=== PATIENT | female | born 1945 | race Caucasian/White ===

== ENCOUNTER 2017-02-07 05:39 | Outpatient (CLI) | payer MEDICARE, BC ==
[~2017-02-07] VITALS: Ht 165.1 cm; Wt 54.4 kg
[~2017-02-07 05:39] MED LIST: ACET-789 PO; ALBU8.5H2 IH; AMIT25TA9 PO; ASP81CT PO; CALC625T; CITA10TA7 PO; CODE-54; DIAZ5TAB49 PO; DOCU100T7 PO; ESCT10T; EST.625T; ESTR1TAB24 PO; FENO145T2 PO; FNT75TD; HYDR-2890 PO; HYDR-3820 PO; HYOS-20 PO; LNS30CCR PO; LUBI24CA6 PO; MIRT30TA6 PO; OMEP20TA7 PO; OMG1KC; PANT40TA3 PO; PROSED DS; STOOL SOFTENER; SUCR1TAB PO; TYLENOL #4; VITAMIN B-12; VITAMIN PACK
[2017-02-07] MEDS ORDERED: DIAZ5TAB3 PO (11:26)
[2017-02-07] MEDS ORDERED: NALO25TA PO (11:26)
[2017-02-07] MEDS ORDERED: FENO145T2 PO (11:26)
[2017-02-07] MEDS ORDERED: ASPI-999 PO (11:26)
[2017-02-07] MEDS ORDERED: DOCU100C37 PO (11:26)
[2017-02-07] MEDS ORDERED: DEXL60CA PO (11:26)
[2017-02-07] MEDS ORDERED: RT-ALBUINH IH (11:26)
== END 2017-02-07 11:29 ==
LOC: PREOP 05:39
PROVIDERS: ATTEND Surgery
DX: Z01.818 Encounter for other preprocedural examination (principal); K21.9 Gastro-esophageal reflux disease without esophagitis; R15.9 Full incontinence of feces; Z86.010 Personal history of colon polyps

== ENCOUNTER 2017-02-13 11:11 | Day surgery (SDC) | payer MEDICARE, BC ==
[~2017-02-13] VITALS: Ht 165.1 cm; Wt 54.4 kg
[~2017-02-13 11:11] MED LIST changes: +ASPI-999 PO; +DEXL60CA PO; +DIAZ5TAB3 PO; +DOCU100C37 PO; +NALO25TA PO; +RT-ALBUINH IH
[2017-02-13] MEDS ORDERED: NS IV 500 ML 500 ML ONE ×2 (11:27→13:41)
[2017-02-13] MEDS ORDERED: NS IV 500 ML 500 ML IV ONE (11:30)
[2017-02-13 11:55] VITALS: BP 138/75
--- NOTE | 2017-02-13 12:06 | Conscious Sedation/ASA ---
Conscious Sedation Pre-Proced Time Reviewed: 12:00 ASA Class: 2 Airway Mallampati Classification: ([place] appropriate class) I. II. III, IV Lungs Heart ASA score ASA 1: a normal healthy patient ASA 2: a patient with a mild systemic disease (mid diabetes, controlled hypertension, obesity ASA 3: a patient with a severe systemic disease that limits activity (angina , COPD, prior Myocardial infarction) ASA 4: a patient with an incapacitating disease that is a constant threat to life (CHF, renal failure) ASA 5: a moribund patient not expected to survive 24 hrs. (ruptured aneurysm) ASA 6: a declared brain patient whose organs are being harvested. For emergent operations, add the letter E after the classification Grade 2 Sedation Plan: Analgesia, Amnesia, Plan communicated to team members, Discussed options with patient/fam, Discussed risks with patient/fam Note The patient is an appropriate candidate to undergo the planned procedure, sedation, and anesthesia. The patient immediately re-assessed prior to indication. TICO GONSALES MD Feb 13, 2017 12:06 pm
--- NOTE | 2017-02-13 12:07 | Progress Note-Pre Operative ---
Pre-Operative Progress Note H&P Reviewed The H&P was reviewed, patient examined and no changes noted. Date Seen by Provider: Feb 13, 2017 Time Seen by Provider: 12:00 Date H&P Reviewed: Feb 13, 2017 Time H&P Reviewed: 12:00 Pre-Operative Diagnosis: GERD, hx colon polyp TICO GONSALES MD Feb 13, 2017 12:07 pm
[2017-02-13] MEDS ORDERED: ACETAMINOPHEN 325 MG TABLET/CAPLET (TYLENOL) PO PRN (12:15)
[2017-02-13] MEDS ORDERED: ONDANSETRON 4 MG/2 ML (SDV) Z0FRAN IV PRN (12:15)
[2017-02-13] MEDS ORDERED: morphine INJ 10 MG/ML 1ML (SYR OR VIAL) IV PRN (12:15)
[2017-02-13] MEDS ORDERED: HYDROcodone/APAP 5 MG/325 MG (LORTAB) TAB PO PRN (12:15)
[2017-02-13] MEDS ORDERED: fentaNYL INJECTION 100 MCG/2 ML AMP ONE ×2 (12:58→13:03)
[2017-02-13] MEDS ORDERED: LIDOCAINE JELLY 2% (XYLOCAINE) 5 ML TUBE ONE (12:58)
[2017-02-13] MEDS ORDERED: MIDAZOLAM 2 MG/2 ML (VERSED) VIAL ONE ×6 (12:58→13:30)
[2017-02-13] MEDS ORDERED: HURRICAINE EXT TUBE (BENZOCAINE) ONE (12:59)
[2017-02-13] MEDS: MIDAZOLAM 2 MG/2 ML (VERSED) VIAL IVP PRN ×6 (13:20→13:35)
[2017-02-13] MEDS: fentaNYL INJECTION 100 MCG/2 ML AMP IVP PRN ×4 (13:21→13:33)
[2017-02-13] MEDS ORDERED: proPOfol 200 MG/20 ML (DIPRIVAN) VIAL IV ONE (13:35)
[2017-02-13 14:35] VITALS: BP 119/64
--- NOTE | 2017-02-13 14:37 | Progress Note-Post Operative ---
Post-Operative Progess Note Surgeon (s)/Generator Rebuilder (s) Surgeon TICO GONSALES MD Generator Rebuilder: none Pre-Operative Diagnosis GERD, hx colon polyp Post-Operative Diagnosis reflux esophagitis(class B), no HH, moderate gastritis. chronic stage 2 ext and int hemorrhoids. Procedure & Operative Findings Date of Procedure 02/13/17 Procedure Performed/Findings EGD with bx. Colooscopy. Anesthesia Type CS Estimated Blood Loss Estimated blood loss (mL): minimal Specimens/Packing Specimens Removed none TICO GONSALES MD Feb 13, 2017 2:37 pm
--- NOTE | 2017-02-13 14:39 | Discharge Inst-Surgical ---
D/C Lap Instructions-DRU Follow Up Appt in 2 weeks Activity as tolerated High Fiber Diet 25g or more per day Avoid Alcohol, Caffeine, Spicy [place] and Acid foods. Drink 64 fluid oz or more of fluids per day. Symptoms to Report: Fever over 101 degree F, Nausea/Vomiting If any problems/questions: Contact your physician or go to Emergency Room TICO GONSALES MD Feb 13, 2017 2:39 pm
[2017-02-13 15:05] VITALS: BP 125/68
[2017-02-13 15:30] VITALS: BP 125/68
[2017-02-13] MEDS ORDERED: LIDOCAINE JELLY 2% (XYLOCAINE) 5 ML TUBE TOP ONE (16:15)
--- NOTE | 2017-02-13 20:52 | OPERATIVE REPORT ---
DATE OF SERVICE: 02/13/2017 ATTENDING PRIMARY CARE PHYSICIAN: Dr. Maryellen Felipe. PREOPERATIVE DIAGNOSIS: Gastroesophageal reflux disease, history of colon polyp, history of proctitis. POSTOPERATIVE DIAGNOSIS: Reflux esophagitis class B, no hiatal hernia, moderate gastritis, normal duodenum, normal ileocolonic anastomosis. No mucosal inflammatory changes. No polyps. PROCEDURE: EGD with biopsy, colonoscopy. SURGEON: Tico Gonsales M.D. ANESTHESIA: Conscious sedation. ESTIMATED BLOOD LOSS: Minimal. FINDINGS: EGD reflux esophagitis class B, no hiatal hernia, moderate severity gastritis. Colonoscopy. Mild chronic stage II external and internal hemorrhoids. The remainder of the rectum and colon were normal. DISPOSITION: The patient tolerated the procedure well. The patient is a 71-year-old female who underwent an ileocecal resection to what sounds to be a unresectable polyp. She has had followup colonoscopies where hyperplastic polyps as well as a tubular adenoma identified. She was then seen 09/2015 and underwent a colonoscopy and was found to have a low level proctitis; however, no polyps identified. She reports for the past 3 months. She has had worsening crampy abdominal pain as well as reflux. DESCRIPTION OF PROCEDURE: The patient was brought to the operating room, laid supine on the table. After adequate IV pain, sedative medications and conscious sedation anesthesia, the mouthpiece was applied. The endoscope was placed in the mouth, visualizing the pharynx and hypopharyngeal region. Vocal cords, epiglottis and vallecula identified to be normal. The endoscope was then intubated into the esophageal opening and esophagus insufflated. The endoscope was then advanced to the first, second and third portions of the esophagus. At the level of the GE junction, a reflux esophagitis class B identified. There were no ulcers or strictures identified in this region. A biopsy was taken with forceps with visualization of good hemostasis. The endoscope was then easily advanced in the stomach. The endoscope retroflexed, visualizing a no hiatal hernia. A moderate severity gastritis was noted, no formal polyps, ulcers or any neoplasms identified. A biopsy was taken of the stomach antrum for H. pylori with visualization of good hemostasis. The endoscope was then advanced to the pylorus and the first and second portions of the duodenum, which appeared normal. No distal obstructions. The endoscope was then slowly withdrawn taking a second look and suctioning residual air with no additional findings. The patient tolerated this portion of the procedure well. We will again recommend medical management with the necessary lifestyle and diet accommodation including small and more frequent meals, avoidance of eating at night as well as head elevation while lying supine. She also needs to avoid spicy, greasy and acidic foods. We also recommend continue on Protonix for now and change in PPI medication if this becomes ineffective. We then proceeded with the colonoscopy portion of the procedure. A digital rectal examination was performed which revealed mild chronic stage II external and internal hemorrhoids, not actively demonstrated inflamed and no bleeding. Normal sphincter tone was felt and there were no palpable masses. The endoscope was then advanced to the valves diffuse the rectum with no polyps or any neoplasms identified. There was also no mucosal inflammatory change to indicate any proctitis. The endoscope was then advanced to the sigmoid colon where no diverticulosis identified. We then proceeded to remainder of the descending, transverse and ascending colon to the cecum. These segments were normal. There were no polyps or any neoplasms identified and a normal anastomosis. The endoscope was slowly withdrawn taking a second look and suctioning of residual air with no additional findings. The patient tolerated the procedure well. We will have her proceed with the necessary lifestyle and diet accommodation including a high fiber diet with at least 25 to 30 grams of fiber to promote soft stools on a daily basis. No polyps were identified on this colonoscopy and she may wait for a longer period of time for her next followup colonoscopy. Job ID: [id number] DocumentID: [id number] Dictated Date: 02/13/2017 14:32:59 Occupational Rehabilitation Aide Date: 02/13/2017 20:51:51 Dictated By: TICO GONSALES MD
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
== END 2017-02-13 15:30 | disposition home or self-care (01) ==
LOC: ENDO 11:11
PROVIDERS: ATTEND Surgery
DX: Z12.11 Encounter for screening for malignant neoplasm of colon (principal); Z86.010 Personal history of colon polyps; K21.0 Gastro-esophageal reflux disease with esophagitis; K29.70 Gastritis, unspecified, without bleeding; K64.1 Second degree hemorrhoids; E78.5 Hyperlipidemia, unspecified; J44.9 Chronic obstructive pulmonary disease, unspecified; K58.9 Irritable bowel syndrome, unspecified; Z79.82 Long term (current) use of aspirin; Z79.899 Other long term (current) drug therapy; Z98.0 Intestinal bypass and anastomosis status
CPT/HCPCS: 43239; G0105

== ENCOUNTER → 2017-02-25 | Outpatient (CLI) | payer MEDICARE, BC | LOC: CARD 13:02 | PROVIDERS: ATTEND Physician Assistant | DX: J44.9 Chronic obstructive pulmonary disease, unspecified (principal); E78.2 Mixed hyperlipidemia; I10 Essential (primary) hypertension; Z72.0 Tobacco use | CPT/HCPCS: 93306 ==

== ENCOUNTER → 2017-02-27 | Outpatient (CLI) | payer MEDICARE, BC ==
[~2017-02-27] MED LIST changes: +CATHETER FLUSH 10 ML SYR IV PRN; +REGADENOSON 0.4 MG/5 ML SYR (LEXISCAN) IV ONE
[2017-02-27 09:41] VITALS: BP 157/98
[2017-02-27 09:46] VITALS: BP 137/75
--- NOTE | 2017-02-27 22:33 | STRESS TEST ---
DATE OF SERVICE: 02/27/2017 LEXISCAN MYOVIEW STRESS TEST REPORT REFERRING PHYSICIAN: Dr. Felipe. Baseline heart rate is 73. Baseline blood pressure 157/98. Baseline EKG is sinus rhythm with no ischemic changes. SUMMARY: The patient was injected with 10.07 mCi of technetium-99 Myoview and the resting images were obtained. Then, the patient received 0.4 mg of Lexiscan followed by 30.1 mCi of technetium-99 Myoview. Throughout the test, there were no EKG changes. The resting and stress images were reviewed and compared in the short axis, horizontal long axis and vertical long axis views. Review of the images showed good radiotracer uptake with no significant ischemia or infarction. SSS is 2. SDS 2. TID value 1.11. On the gated images, the left ventricle appeared to be small in size with normal contractility. Calculated ejection fraction 55%. CONCLUSION: 1. The patient tolerated Lexiscan well. 2. No ischemia or infarction on SPECT images. 3. Normal left ventricular size and contractility, calculated ejection fraction 55%. Job ID: [id number] DocumentID: [id number] Dictated Date: 02/27/2017 16:05:30 Lace Winder Date: 02/27/2017 19:11:15 Dictated By: ADONIS CASTRO MD
== END ==
LOC: CARD 07:37
PROVIDERS: ATTEND Physician Assistant
DX: I10 Essential (primary) hypertension (principal); E78.2 Mixed hyperlipidemia; J44.9 Chronic obstructive pulmonary disease, unspecified; Z72.0 Tobacco use
CPT/HCPCS: 78452; 93017

== ENCOUNTER → 2017-04-01 | Outpatient (CLI) | payer MEDICARE, BC ==
[~2017-04-01] MED LIST changes: -CATHETER FLUSH 10 ML SYR IV PRN; -REGADENOSON 0.4 MG/5 ML SYR (LEXISCAN) IV ONE
--- NOTE | 2017-04-01 16:23 | Diagnostic Imaging Report ---
INDICATION: Fall with neck pain. FINDINGS: There is an X-Stop device between the L4 and L5 spinous process. There is bone graft material seen within the L4-L5 disc space. The alignment of the lumbar spine is normal. Vertebral body heights are well maintained. There is no spondylolysis or spondylolisthesis. No fractures are identified. IMPRESSION: Postsurgical changes in the lumbar spine as described otherwise unremarkable. Dictated by: Dictated on workstation # [id number]
--- NOTE | 2017-04-01 16:30 | Diagnostic Imaging Report ---
INDICATION: Knee pain. Three views were obtained. FINDINGS: The alignment is normal. There is some mild chondrocalcinosis. There is no fracture or dislocation. Soft tissues are unremarkable. IMPRESSION: Mild chondrocalcinosis in the menisci, otherwise unremarkable. Dictated by: Dictated on workstation # [id number]
== END ==
LOC: RAD 15:03
PROVIDERS: ATTEND Nurse Practitioner Family
DX: M54.2 Cervicalgia (principal); M54.5 Low back pain; M11.261 Other chondrocalcinosis, right knee; W19.XXXA Unspecified fall, initial encounter; Z98.890 Other specified postprocedural states
CPT/HCPCS: 72100; 73562

== ENCOUNTER 2017-05-10 22:33 | Emergency (ER) | payer MEDICARE, BC ==
[~2017-05-10] VITALS: Ht 165.1 cm; Wt 54.4 kg
[2017-05-10] MEDS ORDERED: ONDANSETRON 4 MG/2 ML (SDV) Z0FRAN IVP ONE (22:45)
[2017-05-10] MEDS ORDERED: LACTATED RINGERS 1,000 ML IV ONE (22:45)
[2017-05-10 23:22] LABS: BASOPHILS % (AUTO) 0 % (0-10); EOSINOPHILS % (AUTO) 0 % (0-10); HEMATOCRIT 41 % (35-52); HEMOGLOBIN 14.1 G/DL (11.5-16.0); LYMPHOCYTES # (AUTO) 1.4 X 10^3 (1.0-4.0); LYMPHOCYTES % (AUTO) 17 % (12-44); MEAN CORPUSCULAR HEMOGLOBIN 32 PG (25-34); MEAN CORPUSCULAR HGB CONC 34 G/DL (32-36); MEAN CORPUSCULAR VOLUME 92 FL (80-99); MEAN PLATELET VOLUME 10.3 FL (7.4-10.4); MONOCYTES # (AUTO) 0.6 X 10^3 (0.0-1.0); MONOCYTES % (AUTO) 7 % (0-12); NEUTROPHILS # (AUTO) 6.5 X 10^3 (1.8-7.8); NEUTROPHILS % (AUTO) 76 % (42-75); PLATELET COUNT 308 10^3/uL (130-400); RED BLOOD COUNT 4.48 10^6/uL (4.35-5.85); RED CELL DISTRIBUTION WIDTH 12.6 % (10.0-14.5); WHITE BLOOD COUNT 8.6 10^3/uL (4.3-11.0)
[2017-05-10 23:43] LABS: ALANINE AMINOTRANSFERASE 10 U/L (0-55); ALBUMIN 4.2 GM/DL (3.2-4.5); ALKALINE PHOSPHATASE 49 U/L (40-136); AMYLASE 53 U/L (25-125); BILIRUBIN,TOTAL 0.4 MG/DL (0.1-1.0); BUN/CREATININE RATIO 11; CALCIUM 9.3 MG/DL (8.5-10.1); CARBON DIOXIDE 21 MMOL/L (21-32); CHLORIDE 102 MMOL/L (98-107); CREATININE SERUM 0.79 MG/DL (0.60-1.30); GFR ESTIMATED > 60; GLUCOSE 99 MG/DL (70-105); LIPASE 5 U/L (8-78); POTASSIUM 3.7 MMOL/L (3.6-5.0); SODIUM 139 MMOL/L (135-145); TOTAL PROTEIN 7.3 GM/DL (6.4-8.2)
[2017-05-11] MEDS ORDERED: ONDANSETRON 4 MG/2 ML (SDV) Z0FRAN IVP ONE
[2017-05-11] MEDS ORDERED: HYOSCYAMINE 0.125 MG (LEVSIN) TAB PO ONE
[2017-05-11] MEDS ORDERED: SCOPOLAMINE 1.5 MG (TRANSDERM-SCOP) PATCH TD ONE
[2017-05-11] MEDS ORDERED: LACTATED RINGERS 1,000 ML IV ONE (00:01)
[2017-05-11 00:40] LABS: BILIRUBIN,URINE NEGATIVE (NEGATIVE); CLARITY,URINE CLEAR; COLOR,URINE YELLOW; GLUCOSE, URINE (UA) NEGATIVE (NEGATIVE); KETONES,URINE NEGATIVE (NEGATIVE); LEUKOCYTE ESTERASE ,URINE NEGATIVE (NEGATIVE); NITRITE,URINE NEGATIVE (NEGATIVE); PH,URINE 7 (5-9); PROTEIN,URINE NEGATIVE (NEGATIVE); UROBILINOGEN,URINE NORMAL (NORMAL)
[2017-05-11 00:47] LABS: BACTERIA,URINE TRACE /HPF; RBC,URINE RARE /HPF; SQUAMOUS EPITHELIAL CELL,UR 0-2 /HPF; WBC,URINE RARE /HPF
[2017-05-11] MEDS ORDERED: ONDA4TAB8 PO (00:52)
[2017-05-11] MEDS ORDERED: HYOS0.1283 SL (00:52)
--- NOTE | 2017-05-11 00:52 | ED GI ---
General Chief Complaint: Abdominal/GI Problems Stated Complaint: VOMITING/DIZZINESS Nursing Triage Note: patient reports n/v Sepsis Screen: No Definite Risk Source of Information: Patient History of Present Illness Date Seen by Provider: May 10, 2017 Time Seen by Provider: 22:45 Initial Comments PT ARRIVES VIA POV WITH C/O NAUSEA AND VOMITING X 3 DAYS STATES SHE HAS NOT BEEN ABLE TO KEEP ANY THING DOWN FOR 3 DAYS NO DIARRHEA, AND HAS HAD BM'S IN THE LAST 3 DAYS. NO ACTUAL ABDOMINAL PAIN, BUT STOMACH MUSCLES ARE STARTING TO GET SORE FROM VOMITING C/O FEELING DIZZY AND LIGHTHEADED AND SENSITIVE TO LIGHT AND NOISE, BUT NO HEADACHE PT STATES IT STARTED A WEEK AGO WITH COLD SYMPTOMS COUGH AND CONGESTION AND LOTS OF PHLEGM C/O SHORTNESS OF BREATH SYMPTOMS WERE GETTING WORSE AND RX FOR ZITHROMAX CALLED IN THIS AM BY DR. SANDOVAL'S OFFICE. STATES HER NORMAL TEMP IS 96 AND TEMP HAS BEEN UP TO 98 THE LAST FEW DAYS. 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: --PT STATES SHE DOES NOT HAVE ANY HEART PROBLEMS, BUT SEES HIM FOR ROUTINE CHECK UP'S Allergies and Home Medications Allergies Coded Allergies: aspartame (Verified Allergy, Unknown, HIVES, 02/07/17) propoxyphene (Unverified Allergy, Unknown, 02/07/17) Home Medications Albuterol Sulfate 1 Puff Puff, 2 PUFF IH Q4H PRN for SHORTNESS OF BREATH, ( Reported) 1 PUFF = 90 MCG Aspirin 81 Mg Tab.chew, 81 MG PO DAILY, (Reported) Dexlansoprazole 60 Mg , 60 MG PO DAILY, (Reported) Diazepam 5 Mg Tablet, 5 MG PO Q4H, (Reported) Docusate Sodium 100 Mg Capsule, 100 MG PO PRN, (Reported) Estradiol 1 Mg Tablet, 1 MG PO DAILY, (Reported) Fenofibrate Nanocrystallized 145 Mg Tablet, 145 MG PO DAILY, (Reported) Hydrocodone/Acetaminophen 1 Each Tablet, 2 EACH PO Q4H PRN for PAIN, (Reported) Hyoscyamine Sulfate 0.125 Mg Tablet, 0.125 MG PO DAILY PRN for STOMACH UPSET, ( Reported) Hyoscyamine Sulfate 0.125 Mg Tab.subl, 1-2 TAB SL Q4H, #10 Prescribed by: KRISTYN BARBER on 05/11/17 0052 Lubiprostone 24 Mcg Capsule, 24 MCG PO BID PRN for CONSTIPATION-1ST LINE, ( Reported) Naloxegol Oxalate 25 Mg Tablet, 25 MG PO PRN, (Reported) Ondansetron 4 Mg Tab.rapdis, 4-8 MG PO Q4H, #15 Prescribed by: KRISTYN BARBER on 05/11/17 0052 Review of Systems Constitutional: see HPI, dizziness, fever, malaise, weakness EENTM: Nose Congestion Respiratory: See HPI, Cough, Shortness of Air Cardiovascular: No Symptoms Reported Gastrointestinal: See HPI, Abdominal Pain, Denies Constipated, Denies Diarrhea , Nausea, Poor Appetite, Poor Fluid Intake, Vomiting Genitourinary: See HPI (DECREASED OUTPUT) Musculoskeletal: no symptoms reported Skin: no symptoms reported Psychiatric/Neurological: No Symptoms Reported Endocrine: No Symptoms Reported Hematologic/Lymphatic: No Symptoms Reported Past [id number]-[id number] Hx Patient Social History Alcohol Use: Denies Use Recreational Drug Use: No Smoking Status: Current Everyday Smoker (3-4 PPD) Type Used: Cigarettes Recent Foreign Travel: No Contact w/Someone Who Travel: No Recent Infectious Disease Expo: No Recent Hopitalizations: No Physical Abuse: No Sexual Abuse: No Immunizations Up To Date Tetanus Booster (TDap): More than 5yrs Date of Pneumonia Vaccine: Jan 07, 2014 Date of Influenza Vaccine: Jan 16, 2017 Seasonal Allergies Seasonal Allergies: No Surgeries History of Surgeries: Yes (BACK--ANTERIOR AND POSTERIOR APPROACH; COLON "NICKED " DURING SURGERY AND HAD COLON RESECTION; HYST/OVARIES INTACT; SHOULDER SURGERY; URETHRAL DILATION) Surgeries: Abdominal, Appendectomy, Bladder Surgery, Bowel Surgery, Gallbladder , Hysterectomy, Orthopedic, Tubal Ligation Respiratory History of Respiratory Disorde: Yes Respiratory Disorders: COPD Cardiovascular History of Cardiac Disorders: No Neurological History of Neurological Disord: Yes Neurological Disorders: Headaches /Migraines Reproductive System Hx Reproductive Disorders: No Sexually Transmitted Disease: No HIV/AIDS: No 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 Genitourinary History of Genitourinary Disor: No Gastrointestinal History of Gastrointestinal Di: Yes (NICKED BOWEL DURING BACK SX, REQUIRED RESECTION) Gastrointestinal Disorders: Gastroesophageal Reflux, Chronic Constipation Musculoskeletal History of Musculoskeletal Dis: Yes (ARTHRITIS) Musculoskeletal Disorders: Degenerate Disk Disease, Arthritis, Chronic Back Pain Endocrine History of Endocrine Disorders: No HEENT History of HEENT Disorders: No Loss of Vision: Bilateral Hearing Impairment: Denies Cancer History of Cancer: No Psychosocial History of Psychiatric Problem: No Suicide Risk Score: 0 Integumentary History of Skin or Integumenta: No Blood Transfusions History of Blood Disorders: No Adverse Reaction to a Blood Tr: No (N/A) Physical Exam Vital Signs VS - Last 72 Hours, by Label 05/10/17 05/11/17 22:39 01:00 Temp 98.2 Pulse 74 65 Resp 18 18 B/P (MAP) 173/92 (119) 161/89 Pulse Ox 98 98 Capillary Refill : Less Than 3 Seconds General Appearance: no apparent distress, thin, other (LOOKS CHRONICALLY ILL, SOMEWHAT LETHARGIC) HEENT: PERRL/EOMI, other (DRY ORAL MUCOSA) Neck: normal inspection Respiratory: normal breath sounds, no respiratory distress, no accessory muscle use Cardiovascular: regular rate, rhythm, no murmur Gastrointestinal: normal bowel sounds, soft, no organomegaly, no pulsatile mass , No distended, No guarding, No rebound, tenderness (VERY MILD DIFFUSE TENDERNESS--STATES IT IS MUSCLES THAT ARE SORE AND NOT TRUE ABDOMINAL PAIN ), No hernia, No mass Extremities: normal inspection, normal capillary refill Back: no CVA tenderness 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, no motor/sensory deficits, alert, oriented x 3 Skin: warm/dry, pallor Progress/Results/Core Measures Results/Orders Lab Results Laboratory Tests Test 05/10/17 23:14 05/11/17 00:30 Range/Units White Blood Count 8.6 4.3-11.0 10^3/uL Red Blood Count 4.48 4.35-5.85 10^6/uL Hemoglobin 14.1 11.5-16.0 G/DL Hematocrit 41 35-52 % Mean Corpuscular Volume 92 80-99 FL Mean Corpuscular Hemoglobin 32 25-34 PG Mean Corpuscular Hemoglobin Concent 34 32-36 G/DL Red Cell Distribution Width 12.6 10.0-14.5 % Platelet Count 308 130-400 10^3/uL Mean Platelet Volume 10.3 7.4-10.4 FL Neutrophils (%) (Auto) 76 H 42-75 % Lymphocytes (%) (Auto) 17 12-44 % Monocytes (%) (Auto) 7 0-12 % Eosinophils (%) (Auto) 0 0-10 % Basophils (%) (Auto) 0 0-10 % Neutrophils # (Auto) 6.5 1.8-7.8 X 10^3 Lymphocytes # (Auto) 1.4 1.0-4.0 X 10^3 Monocytes # (Auto) 0.6 0.0-1.0 X 10^3 Eosinophils # (Auto) 0.0 0.0-0.3 10^3/uL Basophils # (Auto) 0.0 0.0-0.1 10^3/uL Sodium Level 139 135-145 MMOL/L Potassium Level 3.7 3.6-5.0 MMOL/L Chloride Level 102 98-107 MMOL/L Carbon Dioxide Level 21 21-32 MMOL/L Anion Gap 16 H 5-14 MMOL/L Blood Urea Nitrogen 9 7-18 MG/DL Creatinine 0.79 0.60-1.30 MG/DL Estimat Glomerular Filtration Rate > 60 BUN/Creatinine Ratio 11 Glucose Level 99 70-105 MG/DL Calcium Level 9.3 8.5-10.1 MG/DL Total Bilirubin 0.4 0.1-1.0 MG/DL Aspartate Amino Transf (AST/SGOT) 16 5-34 U/L Alanine Aminotransferase (ALT/SGPT) 10 0-55 U/L Alkaline Phosphatase 49 40-136 U/L Total Protein 7.3 6.4-8.2 GM/DL Albumin 4.2 3.2-4.5 GM/DL Amylase Level 53 25-125 U/L Lipase 5 L 8-78 U/L Urine Color YELLOW Urine Clarity CLEAR Urine pH 7 5-9 Urine Specific [place] 1.010 L 1.016-1.022 Urine Protein NEGATIVE NEGATIVE Urine Glucose (UA) NEGATIVE NEGATIVE Urine Ketones NEGATIVE NEGATIVE Urine Nitrite NEGATIVE NEGATIVE Urine Bilirubin NEGATIVE NEGATIVE Urine Urobilinogen NORMAL NORMAL MG/DL Urine Leukocyte Esterase NEGATIVE NEGATIVE Urine RBC (Auto) 1+ H NEGATIVE Urine RBC RARE /HPF Urine WBC RARE /HPF Urine Squamous Epithelial Cells 0-2 /HPF Urine Crystals NONE /LPF Urine Bacteria TRACE /HPF Urine Casts NONE /LPF Urine Mucus NEGATIVE /LPF Urine Culture Indicated NO My Orders Orders - KRISTYN BARBER DO Saline Lock/Iv-Start (05/10/17 22:45) Amylase (05/10/17 22:45) Cbc With Automated Diff (05/10/17 22:45) Comprehensive Metabolic Panel (05/10/17 22:45) Lipase (05/10/17 22:45) Ua Culture If Indicated (05/10/17 22:45) Ondansetron Injection (Zofran Injectio (05/10/17 22:45) Saline Lock/Iv-Start (05/10/17 22:45) Lactated Ringers (Lr 1000 Ml Iv Solution (05/10/17 22:45) Ondansetron Injection (Zofran Injectio (05/11/17 00:00) Scopolamine Patch (Transderm-Scop Patch) (05/11/17 00:00) Hyoscyamine Sl Tablet (Levsin Sl Tablet) (05/11/17 00:00) Saline Lock/Iv-Start (05/11/17 00:01) Lactated Ringers (Lr 1000 Ml Iv Solution (05/11/17 00:01) Medications Given in ED Current Medications Medications Dose Ordered Sig/Manisha Route Start Time Stop Time Status Last Admin Dose Admin Hyoscyamine Sulfate 0.125 mg ONCE ONCE PO 05/11/17 00:00 05/11/17 00:01 DC 05/11/17 00:14 0.125 MG Lactated Ringer's 1,000 ml @ 0 mls/hr Q0M ONCE IV 05/10/17 22:45 05/10/17 22:47 DC 05/10/17 23:18 0 MLS/HR Lactated Ringer's 1,000 ml @ 0 mls/hr Q0M ONCE IV 05/11/17 00:01 05/11/17 00:02 DC 05/11/17 00:17 0 MLS/HR Ondansetron HCl 8 mg ONCE ONCE IVP 05/10/17 22:45 05/10/17 22:47 DC 05/10/17 23:18 8 MG Ondansetron HCl 8 mg ONCE ONCE IVP 18 00:00 05/11/17 00:01 DC 05/11/17 00:14 8 MG Scopolamine 1.5 mg ONCE ONCE TD 05/11/17 00:00 05/11/17 00:01 DC 05/11/17 00:14 1.5 MG Vital Signs/I&O Vital Sign - Last 12Hours 05/10/17 05/11/17 22:39 01:00 Temp 98.2 Pulse 74 65 Resp 18 18 B/P (MAP) 173/92 (119) 161/89 Pulse Ox 98 98 Blood Pressure Mean: 119 Progress Note : Progress Note SYMPTOMS IMPROVED WITH MEDICATIONS. NO VOMITING DURING ER STAY VOIDED X 2 DURING ER STAY KEEPING DOWN WATER/ICE CHIPS PRIOR TO DISMISSAL PT NO LONGER DIZZY AND ABLE TO WALK BETTER--STATES SHE IS LESS "WOBBLY" Departure Impression Impression: Primary Impression: Gastroenteritis Additional Impression: Volume depletion Disposition: HOME, SELF-CARE Condition: Improved Departure-Patient Inst. Referrals: BETTIE SANDOVAL MD (PCP/Family) Primary Care Physician Patient Instructions: [id number], Viral Gastroenteritis, Adult ( DC), Dehydration, Adult (DC) Add. Discharge Instructions: CLEAR LIQUIDS, SIPS AT A TIME--WATER, BROTH, JELLO, GATORADE TOMORROW IF YOU ARE BETTER, ADD BRATS DIET TO CLEAR LIQUIDS--BANANAS, RICE, APPLESAUCE, TOAST, SALTINES FOLLOW UP WITH YOUR DR ON SATURDAY IF NO BETTER, RETURN TO ER IF WORSE All discharge instructions reviewed with patient and/or family. Voiced understanding. Scripts Hyoscyamine Sulfate (Levsin-Sl) 0.125 Mg Tab.subl 1-2 TAB SL Q4H for Abdominal Pain, #10 TAB Prov: KRISTYN BARBER DO 05/11/17 Ondansetron (Zofran Odt) 4 Mg Tab.rapdis 4-8 MG PO Q4H for Nausea/Vomiting, #15 TAB Prov: KRISTYN BARBER DO 05/11/17 KRISTYN BARBER DO May 11, 2017 00:52
[2017-05-11 01:00] VITALS: BP 161/89
--- OUTSIDE RECORDS SUMMARY | 2017-05-11 03:06 | XMS REPORT | CCD ---
Author Author [facility] Organization [facility] Address [address] [place] [address] Phone Care Team Providers Care Licensed Clinical Psychologist Name Role Phone PP Unavailable CCM Unavailable Summary Purpose Interface Exchange Insurance Providers Payer name Policy type / Coverage type Covered constitution party ID Effective Begin Date Effective End Date WPS Medicare Part B Medicare Part B [id number] Unknown Unknown [facility] Medicare Part B [id number] Unknown Unknown Family history Aunt Diagnosis Age At Onset Diabetes mellitus Type 2 Unknown Father Diagnosis Age At Onset Cancer Unknown Mother Diagnosis Age At Onset Heart Attack Unknown Hyperlipidemia Unknown Hypertension Unknown Dementia Unknown Social History Social History Element Codes Description Effective Dates Marital status Unknown Luis Felipe 09/16/2014 Number of children Unknown 2 09/16/2014 Employment Unknown Retired 09/16/[address]: 06721770 Current every day smoker 2ppd 09/16/2014 Allergies, Adverse Reactions, Alerts Allergies, Adverse Reactions, Alerts data not found Past Medical History Illness Codes Condition Status Onset Date Resolved Date Low back pain ICD-9: 724.2 ICD-10: M54.5 Active 09/13/2016 Unknown Pain in right knee ICD -9: 719.46 ICD-10: M25.561 Active 04/02/2017 Unknown Drug induced constipation ICD-9: 564.09 ICD-10: K59.03 Active 09/13/2016 Unknown Gastro-esophageal reflux disease without esophagitis ICD-9: 530.81 ICD-10: K21.9 Active 10/19/2014 Unknown Chronic pain syndrome ICD-9: 338.4 ICD-10: G89.4 Active 09/15/2014 Unknown Encounter for immunization ICD-9: V03.9 ICD-10: Z23 Active 01/15/2017 Unknown Other emphysema ICD-9 : 492.8 ICD-10: J43.8 Active 01/15/2017 Unknown Encounter for general adult medical examination with abnormal findings ICD-9: V70.0 ICD-10: Z00.01 Active 09/28/2016 Unknown Chronic obstructive pulmonary disease, unspecified ICD-9: 496 ICD-10: J44.9 Active 09/15/2014 Unknown Muscle spasm of back ICD-9: 728.85 ICD-10: M62.830 Active 09/13/2016 Unknown 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 ICD-10: K59.1 Active 03/15/2016 Unknown Tobacco use ICD-9: 305.1 ICD-10: Z72.0 Active 09/13/2015 Unknown Encounter for immunization ICD-9: V03.82 ICD-10: Z23 Active 01/12/2016 Unknown Encounter for immunization ICD-9: V04.81 ICD-10: Z23 Active 12/15/2014 Unknown Epigastric pain ICD-9 : 789.06 ICD-10: R10.13 Active 12/14/2015 Unknown Dysuria ICD-9: 788.1 ICD-10: R30.0 Active 02/28/2015 Unknown VACCIN FOR INFLUENZA ICD-9: V04.81 Active 12/15/2014 Unknown ESOPHAGEAL REFLUX ICD- 9: 530.81 Active 10/19/2014 Unknown Muscle spasm ICD-9: 728.85 Active 10/19/2014 Unknown Hyperlipidemia Unknown Active 09/16/2014 Unknown CHRONIC AIRWAY OBST NEC ICD-9: 496 Active 09/15/2014 Unknown CHRONIC PAIN SYNDROME ICD-9: 338.4 Active 09/15/2014 Unknown HYPERLIPIDEMIA ICD-9: 272.4 Active 09/15/2014 Unknown Problems Condition Codes Effective Dates Condition Status Low back pain ICD-9: 724.2 ICD-10: M54.5 09/13/2016 Active Pain in right knee ICD -9: 719.46 ICD-10: M25.561 04/02/2017 Active Drug induced constipation ICD-9: 564.09 ICD-10: K59.03 09/13/2016 Active Gastro-esophageal reflux disease without esophagitis ICD-9: 530.81 ICD-10: K21.9 10/19/2014 Active Chronic pain syndrome ICD-9: 338.4 ICD-10: G89.4 09/15/2014 Active Encounter for immunization ICD-9: V03.9 ICD-10: Z23 01/15/2017 Active Other emphysema ICD-9 : 492.8 ICD-10: J43.8 01/15/2017 Active Encounter for general adult medical examination with abnormal findings ICD-9: V70.0 ICD-10: Z00.01 09/28/2016 Active Chronic obstructive pulmonary disease, unspecified ICD-9: 496 ICD-10: J44.9 09/15/2014 Active Muscle spasm of back ICD-9: 728.85 ICD-10: M62.830 09/13/2016 Active 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 ICD-10: K59.1 03/15/2016 Active Tobacco use ICD-9: 305.1 ICD-10: Z72.0 09/13/2015 Active Encounter for immunization ICD-9: V03.82 ICD-10: Z23 01/12/2016 Active Encounter for immunization ICD-9: V04.81 ICD-10: Z23 12/15/2014 Active Epigastric pain ICD-9 : 789.06 ICD-10: R10.13 12/14/2015 Active Dysuria ICD-9: 788.1 ICD-10: R30.0 02/28/2015 Active VACCIN FOR INFLUENZA ICD-9: V04.81 12/15/2014 Active ESOPHAGEAL REFLUX ICD- 9: 530.81 10/19/2014 Active Muscle spasm ICD-9: 728.85 10/19/2014 Active Hyperlipidemia Unknown 09/16/2014 Active CHRONIC AIRWAY OBST NEC ICD-9: 496 09/15/2014 Active CHRONIC PAIN SYNDROME ICD-9: 338.4 09/15/2014 Active HYPERLIPIDEMIA ICD-9: 272.4 09/15/2014 Active Medications Medication Codes Instructions Start Date Stop Date Status Fill Instructions baclofen 10 mg tablet RxNorm: 957013 Tablet(s) 1 TABLET(S) PO BID NEEDED 04/29/2017 08/26/2017 Active Patient requests 90 days supply baclofen 10 mg tablet RxNorm: 147457 1 Tablet(s) PO BID as needed 04/25/2017 04/24/2017 Inactive baclofen 10 mg tablet RxNorm: 928424 1 TABLET(S) PO BID NEEDED 04/25/2017 04/28/2017 Inactive Patient requests 90 days supply baclofen 10 mg tablet RxNorm: 878856 1 Tablet(s) PO BID as needed 04/25/2017 04/24/2017 Inactive sodium chloride 0.9 % for nebulization RxNorm: 002819 1 Unit Dose INH TID as needed 04/24/2017 No Stop Date Active 90 day supply sodium chloride 0.9 % for nebulization RxNorm: 365503 1 Unit Dose INH TID as needed 04/24/2017 04/23/2017 Inactive sodium chloride 0.9 % for nebulization RxNorm: 875470 1 Unit Dose INH TID as needed 04/24/2017 04/23/2017 Inactive oxycodone 20 mg tablet RxNorm: 1989866 1 Tablet(s) PO Q4H 04/1105/10/2017 Active oxycodone 20 mg tablet RxNorm: 9435534 1 Tablet(s) PO Q4H 03/1204/10/2017 Inactive Valium 5 mg tablet RxNorm: 499050 1 Tablet(s) PO Q4H BRAND NAME ONLY!! 03/01/2017 04/22/2017 Inactive hydrocodone 10 mg-acetaminophen 325 mg tablet RxNorm: 690693 2 Tablet(s) PO Q4H 02/11/2017 04/22/2017 Inactive Valium 5 mg tablet RxNorm: 101538 1 Tablet(s) PO Q4H BRAND NAME ONLY!! 01/30/2017 02/28/2017 Inactive hydrocodone 10 mg-acetaminophen 325 mg tablet RxNorm: 636946 2 Tablet(s) PO Q4H 01/09/2017 02/07/2017 Inactive hydrocodone 10 mg-acetaminophen 325 mg tablet RxNorm: 761996 2 Tablet(s) PO Q4H 12/12/2016 01/08/2017 Inactive Movantik 25 mg tablet RxNorm: 4636764 1 Tablet(s) PO daily 11/2202/19/2017 Inactive ProAir HFA 90 mcg/actuation aerosol inhaler RxNorm: 534114 USE 2 INHALATIONS ORALLY EVERY 4 HOURS NEEDED 11/12/2016 02/19/2017 Inactive hydrocodone 10 mg-acetaminophen 325 mg tablet RxNorm: 397358 2 Tablet(s) PO Q4H 11/12/2016 12/11/2016 Inactive hydrocodone 10 mg-acetaminophen 325 mg tablet RxNorm: 453460 2 Tablet(s) PO Q4H 10/11/2016 11/08/2016 Inactive Movantik 25 mg tablet RxNorm: 1044098 1 Tablet(s) PO daily 10/0310/02/2016 Inactive Movantik 25 mg tablet RxNorm: 2380202 1 Tablet(s) PO daily 10/0311/21/2016 Inactive Miralax 17 gram/dose oral powder RxNorm: 164854 1 dose PO daily as needed constipation 10/01/2016 No Stop Date Active bethanechol chloride 25 mg tablet RxNorm: 989689 1/2 - 1 Tablet(s) PO TID as needed urinary retention 09/13/20162016 Inactive hydrocodone 10 mg-acetaminophen 325 mg tablet RxNorm: 848846 2 Tablet(s) PO Q4H 09/13/2016 10/09/2016 Inactive hydrocodone 10 mg-acetaminophen 325 mg tablet RxNorm: 875119 2 Tablet(s) PO Q4H 08/10/2016 09/08/2016 Inactive Protonix 40 mg tablet,delayed release RxNorm: 249322 1 TABLET(S) PO DAILY 07/16/2016 10/13/2016 Inactive hydrocodone 10 mg-acetaminophen 325 mg tablet RxNorm: 662089 2 Tablet(s) PO Q4H 06/12/2016 08/09/2016 Inactive estradiol 1 mg tablet RxNorm: 106293 1 Tablet(s) PO daily 201605/22/2017 Active hydrocodone 10 mg-acetaminophen 325 mg tablet RxNorm: 326543 2 Tablet(s) PO Q4H 05/16/2016 06/11/2016 Inactive hydrocodone 10 mg-acetaminophen 325 mg tablet RxNorm: 997441 2 Tablet(s) PO Q4H 04/16/2016 04/15/2016 Inactive hydrocodone 10 mg-acetaminophen 325 mg tablet RxNorm: 447919 2 Tablet(s) PO Q4H 04/16/2016 05/15/2016 Inactive Valium 5 mg tablet RxNorm: 465274 1 Tablet(s) PO Q4H BRAND NAME ONLY!! 04/10/2016 10/06/2016 Inactive hydrocodone 10 mg-acetaminophen 325 mg tablet RxNorm: 632414 2 Tablet(s) PO Q4H 02/13/2016 03/13/2016 Inactive hydrocodone 10 mg-acetaminophen 325 mg tablet RxNorm: 046629 2 Tablet(s) PO Q4H 01/12/2016 02/10/2016 Inactive Valium 5 mg tablet RxNorm: 794698 1 Tablet(s) PO Q4H BRAND NAME ONLY!! 12/29/2015 03/27/2016 Inactive hyoscyamine 0.125 mg sublingual tablet RxNorm: 8511070 Tablet(s) PLACE 1 TABLET UNDER TONGUE NEEDED FOR ABDOMINAL PAIN DIRECTED 201501/24/2016 Inactive Patient requests 90 days supply Amitiza 24 mcg capsule RxNorm: 549160 1 Capsule(s) PO BID 12/2712/21/2016 Inactive Valium 5 mg tablet RxNorm: 107490 1 Tablet(s) PO Q4H 201512/28/2015 Inactive amitriptyline 25 mg tablet RxNorm: 737067 1 Tablet(s) PO daily 12/15/2015 12/17/2016 Inactive hyoscyamine 0.125 mg sublingual tablet RxNorm: 0867754 PLACE 1 TABLET UNDER TONGUE NEEDED FOR ABDOMINAL PAIN DIRECTED 10/03/2015 10/30/2015 Inactive Patient requests 90 days supply hydrocodone 10 mg-acetaminophen 325 mg tablet RxNorm: 603589 2 Tablet(s) PO Q4H 09/20/2015 10/19/2015 Inactive scopolamine 1.5 mg transdermal patch (1 mg over 3 days) RxNorm: 167831 1 TD Q72H as needed motion sick 09/14/20152015 Inactive hydrocodone 10 mg-acetaminophen 325 mg tablet RxNorm: 540097 2 Tablet(s) PO Q4H 09/14/2015 09/19/2015 Inactive ProAir HFA 90 mcg/actuation aerosol inhaler RxNorm: 420230 2 Puff(s) INH Q4H as needed 09/14/2015 03/11/2016 Inactive Valium 5 mg tablet RxNorm: 927912 1 Tablet(s) PO Q4H 201512/07/2015 Inactive MS Contin 60 mg tablet,extended release RxNorm: 060974 1 Tablet(s) PO BID 08/10/2015 09/08/2015 Inactive hydrocodone 10 mg-acetaminophen 325 mg tablet RxNorm: 240378 2 Tablet(s) PO Q4H 08/10/2015 09/08/2015 Inactive MS Contin 30 mg tablet,extended release RxNorm: 559747 1 Tablet(s) PO BID 07/13/2015 08/09/2015 Inactive Carafate 1 gram tablet RxNorm: 170943 1 Tablet(s) PO QID as needed for pain 06/27/2015 07/26/2015 Inactive Protonix 40 mg tablet,delayed release RxNorm: 421809 1 Tablet(s) PO daily 06/27/2015 06/26/2015 Inactive Protonix 40 mg tablet,delayed release RxNorm: 650681 1 TABLET(S) PO DAILY 06/27/2015 10/24/2015 Inactive Patient requests 90 days supply Amitiza 24 mcg capsule RxNorm: 413508 1 Capsule(s) PO BID 06/1212/27/2015 Inactive hydrocodone 10 mg-acetaminophen 325 mg tablet RxNorm: 166191 2 Tablet(s) PO Q4H 06/13/2015 07/12/2015 Inactive citalopram 10 mg tablet RxNorm: 421067 1 Tablet(s) PO daily 07/12/2015 Inactive citalopram 10 mg tablet RxNorm: 036784 1 Tablet(s) PO daily 06/09/2015 Inactive estradiol 1 mg tablet RxNorm: 580821 1 TABLET, 1 TIME PER DAY 02/02/2016 Inactive hydrocodone 10 mg-acetaminophen 325 mg tablet RxNorm: 519248 2 Tablet(s) PO Q4H 04/10/2015 05/09/2015 Inactive Valium 5 mg tablet RxNorm: 108815 1 Tablet(s) PO Q4H 201406/07/2015 Inactive hydrocodone 10 mg-acetaminophen 325 mg tablet RxNorm: 892007 2 Tablet(s) PO Q4H 03/10/2015 03/31/2015 Inactive scopolamine 1.5 mg transdermal patch (1 mg over 3 days) RxNorm: 646240 1 Patch TD Q72H 03/01/2015 03/10/2015 Inactive Valium 5 mg tablet RxNorm: 908497 1 Tablet(s) PO Q4H 201403/09/2015 Inactive hydrocodone 10 mg-acetaminophen 325 mg tablet RxNorm: 847447 2 Tablet(s) PO Q4H 02/07/2015 03/08/2015 Inactive sulfamethoxazole 800 mg-trimethoprim 160 mg tablet RxNorm: 952659 1 Tablet(s) PO BID 01/19/2015 01/25/2015 Inactive hydrocodone 10 mg-acetaminophen 325 mg tablet RxNorm: 115583 2 Tablet(s) PO Q4H 12/22/2014 01/20/2015 Inactive omeprazole 20 mg capsule,delayed release RxNorm: 571208 1 Capsule(s) PO BID 10/20/2014 10/19/2014 Inactive omeprazole 20 mg capsule,delayed release RxNorm: 328715 1 Capsule(s) PO BID 10/20/2014 10/19/2014 Inactive hydrocodone 10 mg-acetaminophen 325 mg tablet RxNorm: 540816 2 Tablet(s) PO Q4H 10/20/2014 11/18/2014 Inactive Valium 5 mg tablet RxNorm: 015805 1 Tablet(s) PO Q4H 201402/14/2015 Inactive omeprazole 20 mg capsule,delayed release RxNorm: 790196 1 Capsule(s) PO BID 10/20/2014 08/09/2015 Inactive MS Contin 15 mg tablet,extended release RxNorm: 053076 1 Tablet(s) PO BID 09/16/2014 10/19/2014 Inactive hydrocodone 10 mg-acetaminophen 325 mg tablet RxNorm: 856101 1 Tablet(s) PO Q6 as needed 09/13/2014 10/19/2014 Inactive fenofibrate nanocrystallized 145 mg tablet RxNorm: 455975 1 Tablet(s) PO daily No Start Date Active ipratropium-albuterol inhalation RxNorm: 435 inhalation No Start Date Active baclofen 10 mg tablet RxNorm: 752460 3 Tablet(s) PO PRN No Start Date Active sodium chloride inhalation RxNorm: inhalation No Start Date 04/23/2017 Inactive Amitiza 24 mcg capsule RxNorm: 119090 1 Capsule(s) PO BID No Start Date 06/12/2015 Inactive hydrocodone 10 mg-acetaminophen 325 mg tablet RxNorm: 609257 1 Tablet(s) PO Q6 as needed No Start Date 09/12/2014 Inactive hyoscyamine 0.125 mg sublingual tablet RxNorm: 2155395 1 Tablet(s) SL PRN as needed abdominal pain No Start Date 2015 Inactive lansoprazole 30 mg capsule,delayed release RxNorm: 153699 1 Capsule(s) PO BID No Start Date 07/13/2015 Inactive ProAir HFA 90 mcg/actuation aerosol inhaler RxNorm: 645298 2 Puff(s) INH Q4H as needed No Start Date 09/13/2015 Inactive estradiol 1 mg tablet RxNorm: 555390 1 Tablet(s) PO daily No Start Date 05/08/2015 Inactive Miralax 17 gram/dose oral powder RxNorm: 202168 1 dose PO daily as needed constipation No Start Date 09/30/2016 Inactive Valium 5 mg tablet RxNorm: 421050 1 Tablet(s) PO Q4H No Start Date 10/19/2014 Inactive amitriptyline 25 mg tablet RxNorm: 359522 1 Tablet(s) PO daily No Start Date 12/14/2015 Inactive Medication Administered No Medication Administered data Immunizations Vaccine Codes Date Status Influenza CVX: 141 01/15/2017 completed Pneumococcal (Adult) CVX: 33 01/13/2016 completed Influenza CVX: 141 12/15/2015 completed Influenza CVX: 141 12/16/2014 completed Assessments Condition Codes Effective Dates Pain in right knee ICD-10: M25.561 ICD-9: 719.46 04/02/2017 Low back pain ICD-10: M54.5 ICD-9: 724.2 04/02/2017 Drug induced constipation ICD-10: K59.03 ICD-9: 564.09 01/30/2017 Gastro-esophageal reflux disease without esophagitis ICD-10 : K21.9 ICD-9: 530.81 01/30/2017 Other emphysema ICD-10: J43.8 ICD-9: 492.8 01/15/2017 Chronic pain syndrome ICD-10: G89.4 ICD-9: 338.4 01/15/2017 Encounter for immunization ICD-10: Z23 ICD-9: V03.9 01/15/2017 Encounter for general adult medical examination with abnormal findings ICD-10: Z00.01 ICD-9: V70.0 09/28/2016 Muscle spasm of back ICD-10: M62.830 ICD-9: 728.85 09/13/2016 Chronic obstructive pulmonary disease, unspecified ICD-10: J44.9 ICD-9: 496 06/12/2016 Functional diarrhea ICD-10: K59.1 ICD-9: 564.5 06/12/2016 Tobacco use ICD-10: Z72.0 ICD-9: 305.1 06/12/2016 Encounter for immunization ICD-10: Z23 ICD-9: V03.82 01/13/2016 Epigastric pain ICD-10: R10.13 ICD-9: 789.06 12/15/2015 Encounter for immunization ICD-10: Z23 ICD-9: V04.81 12/15/2015 Dysuria ICD-10: R30.0 ICD-9: 788.1 03/01/2015 VACCIN FOR INFLUENZA ICD-9: V04.81 2014 CHRONIC PAIN SYNDROME ICD-9: 338.4 2014 Muscle spasm ICD-9: 728.85 10/20/2014 CHRONIC AIRWAY OBST NEC ICD-9: 496 2014 ESOPHAGEAL REFLUX ICD-9: 530.81 2014 HYPERLIPIDEMIA ICD-9: 272.4 09/16/2014 Reason For Visit Reason For Visit Effective Dates Notes knee pain 04/02/2017 on the right constipation 01/30/2017 back pain 01/15/2017 Annual Medicare Wellness Exam 09/28/2016 back pain 09/13/2016 back pain 06/12/2016 back pain 03/15/2016 vaccination against pneumonia 01/13/2016 back pain 12/15/2015 abdominal pain 09/14/2015 abdominal pain 08/10/2015 abdominal pain 07/13/2015 abdominal pain 06/27/2015 back pain 04/20/2015 dysuria 01/19/2015 vaccination against influenza 12/16/2014 back pain 10/20/2014 back pain 09/16/2014 Results Observation Observation Code Item Item Code Result Date Cbc With Differential Ord2 WBC 5.55 K/ul 12/24/2016 Cbc With Differential Ord2 RBC 4.12 M/ul 12/24/2016 Cbc With Differential Ord2 HGB 13.7 g/dl 12/24/2016 Cbc With Differential Ord2 HCT 40.3 % 12/24/2016 Cbc With Differential Ord2 Neut% 37.9 % 12/24/2016 Cbc With Differential Ord2 MCV 97.8 fl 12/24/2016 Cbc With Differential Ord2 Lymph% 51.4 % 12/24/2016 Cbc With Differential Ord2 [place]% 7.9 % 12/24/2016 Cbc With Differential Ord2 MCH 33.3 pg 12/24/2016 Cbc With Differential Ord2 MCHC 34.0 pg 12/24/2016 Cbc With Differential Ord2 Eos% 2.3 % 12/24/2016 Cbc With Differential Ord2 PLT 315 K/ul 12/24/2016 Cbc With Differential Ord2 Baso% 0.5 % 12/24/2016 Cbc With Differential Ord2 Neut ABS# 2.10 K/ul 12/24/2016 Cbc With Differential Ord2 RDW 12.5 % 12/24/2016 Cbc With Differential Ord2 Lymph ABS# 2.85 K/ul 12/24/2016 Cbc With Differential Ord2 [place] ABS# 0.4 K/ul 12/24/2016 Cbc With Differential Ord2 Eos ABS# 0.1 K/ul 12/24/2016 Cbc With Differential Ord2 Baso ABS# 0.0 K/ul 12/24/2016 Tsh Ord6 hTSH II 4.10 uIU/mL 12/24/2016 Comp Metabolic Rgj207 NA 138 mEq/L 12/24/2016 Comp Metabolic Jvl369 K 4.9 mEq/L 12/24/2016 Comp Metabolic Gpr182 CL 101 mEq/L 12/24/[address] CO2 30.0 mEq/L 12/24/2016 Comp Metabolic Tzp927 ANION GAP 12 12/24/2016 Comp Metabolic Dhi998 GLUCOSE 89 mg/dL 12/24/2016 Comp Metabolic Dey749 Creat 0.8 mg/dL 12/24/2016 Comp Metabolic Knz532 eGFR 75 ml/min/1.73m2 12/24/2016 Comp Metabolic Zet842 BUN 13 mg/dL 12/24/2016 Comp Metabolic Waw640 B/C Ratio 16.3 Ratio 12/24/2016 Comp Metabolic Aym292 CALCIUM 10.3 mg/dL 12/24/2016 Comp Metabolic Pih695 ALK PHOS 37 U/L 12/24/2016 Comp Metabolic Qis517 AST(SGOT) 17 U/L 12/24/2016 Comp Metabolic Qga604 ALT(SGPT) 9 U/L 12/24/2016 Comp Metabolic Jcg120 BILI T 0.3 mg/dL 12/24/2016 Comp Metabolic Ydv065 ALBUMIN 4.4 g/dL 12/24/2016 Comp Metabolic Bxz329 TPRO 6.9 g/dL 12/24/2016 Comp Metabolic Tud043 GLOB 2.5 g/dL 12/24/2016 Comp Metabolic Pmt017 A/G Ratio 1.7 Ratio 12/24/2016 Comp Metabolic Cax305 Osmo 275 mOsmo 12/24/2016 Lipid Ord30 CHOL 219 mg/dL 12/24/2016 Lipid Ord30 HDL 92.0 mg/dl 12/24/2016 Lipid Ord30 TRIG 201 mg/dL 12/24/2016 Lipid Ord30 LDL 87 mg/dL 12/24/2016 Lipid Ord30 C/HDL 2.4 Ratio 12/24/2016 Lipid Ord30 CHOL 206 mg/dL 01/03/2016 Lipid Ord30 HDL 100.0 mg/dl 01/03/2016 Lipid Ord30 TRIG 99 mg/dL 01/03/2016 Lipid Ord30 LDL 86 mg/dL 01/03/2016 Lipid Ord30 C/HDL 2.1 Ratio 01/03/2016 Comp Metabolic Mmy177 NA 136 mEq/L 09/28/2015 Comp Metabolic Ocz437 K 4.3 mEq/L 09/28/2015 Comp Metabolic Wqm382 CL 105 mEq/L 09/28/2015 Comp Metabolic Xbh893 CO2 20.0 mEq/L 09/28/2015 Comp Metabolic Snz482 ANION GAP 15 09/28/2015 Comp Metabolic Qmw560 GLUCOSE 88 mg/dL 09/28/2015 Comp Metabolic Cnd908 Creat 0.9 mg/dL 09/28/2015 Comp Metabolic Vlh351 eGFR 67 ml/min/1.73m2 09/28/2015 Comp Metabolic Une354 BUN 10 mg/dL 09/28/2015 Comp Metabolic Mvx843 B/C Ratio 11.4 Ratio 09/28/2015 Comp Metabolic Nmd887 CALCIUM 9.6 mg/dL 09/28/2015 Comp Metabolic Gly205 ALK PHOS 34 U/L 09/28/2015 Comp Metabolic Wei375 AST(SGOT) 17 U/L 09/28/2015 Comp Metabolic Kbw400 ALT(SGPT) 9 U/L 09/28/2015 Comp Metabolic Sir132 BILI T 0.4 mg/dL 09/28/2015 Comp Metabolic Pnr138 ALBUMIN 4.7 g/dL 09/28/2015 Comp Metabolic Cco588 TPRO 7.4 g/dL 09/28/2015 Comp Metabolic Bhx088 GLOB 2.7 g/dL 09/28/2015 Comp Metabolic Mwv359 A/G Ratio 1.7 Ratio 09/28/2015 Comp Metabolic Zpo041 Osmo 270 mOsmo 09/28/2015 Lipid Ord30 CHOL 214 mg/dL 09/28/2015 Lipid Ord30 HDL 98.0 mg/dl 09/28/2015 Lipid Ord30 TRIG 133 mg/dL 09/28/2015 Lipid Ord30 LDL 89 mg/dL 09/28/2015 Lipid Ord30 C/HDL 2.2 Ratio 09/28/2015 Culture Urine [id number] URINE CULTURE SEE NOTES 01/24/2015 Culture Urine [id number] Continued Results 01/24/2015 Urine Culture Ucult Complete >100,000 col/ml aerobic growth sent to ref lab 01/20/2015 Vitamin D 25 Oh Akp0820 VITAMIN D, 25 HYDROXY 77.29 ng/mL Cbc With Differential Ord2 WBC 4.3 K/uL 09/30/2014 Cbc With Differential Ord2 LYM 2.0 K/uL 09/30/2014 Cbc With Differential Ord2 LYM% 47.4 % 09/30/2014 Cbc With Differential Ord2 NEUT/GRAN 2.0 K/uL 09/30/2014 Cbc With Differential Ord2 NEUT/GRAN % 45.8 % 09/30/2014 Cbc With Differential Ord2 MID 0.3 K/uL 09/30/2014 Cbc With Differential Ord2 MID% 6.8 % 09/30/2014 Cbc With Differential Ord2 RBC 4.39 M/uL 09/30/2014 Cbc With Differential Ord2 HGB 14.0 g/dL 09/30/2014 Cbc With Differential Ord2 HCT 41.7 % 09/30/2014 Cbc With Differential Ord2 MCV 95 fL 09/30/2014 Cbc With Differential Ord2 MCH 32 pg 09/30/2014 Cbc With Differential Ord2 MCHC 34 g/dL 09/30/2014 Cbc With Differential Ord2 PLT 257 K/uL 09/30/2014 Cbc With Differential Ord2 RDW 13.7 % 09/30/2014 Tsh Ord6 hTSH II 1.42 uIU/mL 09/30/2014 Comp Metabolic Vmq517 NA 136 mEq/L 09/30/2014 Comp Metabolic Ugo432 K 4.0 mEq/L 09/30/2014 Comp Metabolic Odk853 CL 104 mEq/L 09/30/2014 Comp Metabolic Out622 CO2 25.0 mEq/L 09/30/2014 Comp Metabolic Fff352 ANION GAP 11 09/30/2014 Comp Metabolic Ynn442 GLUCOSE 84 mg/dL 09/30/2014 Comp Metabolic Jpc714 Creat 0.9 mg/dL 09/30/2014 Comp Metabolic Heu829 eGFR 67 ml/min/1.73m2 09/30/2014 Comp Metabolic Xow947 BUN 9 mg/dL 09/30/2014 Comp Metabolic Obk741 B/C Ratio 10.2 Ratio 09/30/2014 Comp Metabolic Nfr324 CALCIUM 9.5 mg/dL 09/30/2014 Comp Metabolic Avy645 ALK PHOS 34 U/L 09/30/2014 Comp Metabolic Uxl078 AST(SGOT) 19 U/L 09/30/2014 Comp Metabolic Ygj483 ALT(SGPT) 11 U/L 09/30/2014 Comp Metabolic Tyh112 BILI T 0.4 mg/dL 09/30/2014 Comp Metabolic Wob898 ALBUMIN 4.2 g/dL 09/30/2014 Comp Metabolic Zki454 TPRO 6.6 g/dL 09/30/2014 Comp Metabolic Frz856 GLOB 2.4 g/dL 09/30/2014 Comp Metabolic Fpv057 A/G Ratio 1.8 Ratio 09/30/2014 Comp Metabolic Rrz906 Osmo 270 mOsmo 09/30/2014 Lipid Ord30 CHOL 199 mg/dL 09/30/2014 Lipid Ord30 HDL 95.0 mg/dl 09/30/2014 Lipid Ord30 TRIG 91 mg/dL 09/30/2014 Lipid Ord30 LDL 86 mg/dL 09/30/2014 Lipid Ord30 C/HDL 2.1 Ratio 09/30/2014 Review of Systems System Result Effective Dates Constitutional No recent illness 2017 Constitutional No chills 04/02/2017 Constitutional No fever 04/02/2017 Eyes No eye erythema 04/02/2017 Ears/Nose/Throat/Neck No nasal discharge 04/02/2017 Cardiovascular No chest pain/pressure 11/2017 Cardiovascular No dyspnea 04/02/2017 Respiratory No cough 04/02/2017 Respiratory No dyspnea 04/02/2017 Musculoskeletal joint complaint 2017 Neurologic No alteration of consciousness 04/02/2017 Neurologic No mental status change 2017 Musculoskeletal back pain 04/02/2017 Constitutional recent illness 01/30/2017 Constitutional No chills 01/30/2017 Constitutional No diaphoresis 01/30/2017 Constitutional No fever 01/30/2017 Eyes No eye erythema 01/30/2017 Ears/Nose/Throat/Neck No nasal discharge 01/30/2017 Cardiovascular No chest pain/pressure 10/2016 Cardiovascular No dyspnea 01/30/2017 Respiratory No cough 01/30/2017 Respiratory No chest congestion 2016 Gastrointestinal abdominal pain 2016 Gastrointestinal constipation 01/30/2017 Gastrointestinal No diarrhea 01/30/2017 Gastrointestinal No vomiting 01/30/2017 Gastrointestinal No nausea 01/30/2017 Gastrointestinal No melena 01/30/2017 Gastrointestinal No hematochezia 2016 Musculoskeletal back pain 01/30/2017 Neurologic No alteration of consciousness 01/30/2017 Neurologic No mental status change 2016 Constitutional No recent illness 2016 Constitutional No chills 01/15/2017 Constitutional fatigue 01/15/2017 Constitutional No fever 01/15/2017 Constitutional No insomnia 01/15/2017 Constitutional malaise 01/15/2017 Eyes No blindness 01/15/2017 Eyes No vision change 01/15/2017 Ears/Nose/Throat/Neck No dental pain Ears/Nose/Throat/Neck No dizziness 2016 Ears/Nose/Throat/Neck No dysphagia 2016 Ears/Nose/Throat/Neck No headache 2016 Ears/Nose/Throat/Neck No hearing loss Ears/Nose/Throat/Neck No nasal allergies 01/15/2017 Ears/Nose/Throat/Neck No sore throat Ears/Nose/Throat/Neck No postnasal drip 01/15/2017 Ears/Nose/Throat/Neck No sinus congestion 01/15/2017 Cardiovascular No chest pain/pressure Cardiovascular No dyspnea 01/15/2017 Cardiovascular No edema 01/15/2017 Cardiovascular exercise intolerance 01/15 Cardiovascular fatigue 01/15/2017 Cardiovascular No near-syncope/dizziness 01/15/2017 Respiratory No chest tightness 2016 Respiratory No cough 01/15/2017 Respiratory dyspnea 01/15/2017 Respiratory No pedal edema 01/15/2017 Gastrointestinal abdominal pain 2016 Gastrointestinal constipation 01/15/2017 Gastrointestinal diarrhea 01/15/2017 Gastrointestinal gastroesophageal reflux 01/15/2017 Gastrointestinal No nausea 01/15/2017 Gastrointestinal No vomiting 01/15/2017 Genitourinary/Nephrology No dysuria 01/15 Genitourinary/Nephrology No nocturia Genitourinary/Nephrology No urinary incontinence 01/15/2017 Musculoskeletal stiffness 01/15/2017 Musculoskeletal No swelling 01/15/2017 Musculoskeletal back pain 01/15/2017 Musculoskeletal muscle weakness 2016 Musculoskeletal myalgias 01/15/2017 Dermatologic No rash 01/15/2017 Dermatologic No sores 01/15/2017 Dermatologic No scar 01/15/2017 Neurologic No dizziness 01/15/2017 Neurologic No headache 01/15/2017 Neurologic No neck pain 01/15/2017 Neurologic No syncope 01/15/2017 Psychiatric No anxiety 01/15/2017 Psychiatric No depression 01/15/2017 Respiratory dyspnea on exertion 2016 Constitutional No recent illness 2016 Constitutional No diaphoresis 09/28/2016 Constitutional No chills 09/28/2016 Constitutional No fever 09/28/2016 Eyes No eye erythema 09/28/2016 Ears/Nose/Throat/Neck No nasal allergies 09/28/2016 Ears/Nose/Throat/Neck No nasal discharge 09/28/2016 Cardiovascular No chest pain/pressure 09/2016 Cardiovascular No dyspnea 09/28/2016 Respiratory No cough 09/28/2016 Respiratory No dyspnea 09/28/2016 Dermatologic No rash 09/28/2016 Neurologic No alteration of consciousness 09/28/2016 Neurologic No mental status change 2016 Constitutional No recent illness 2016 Constitutional No chills 09/13/2016 Constitutional fatigue 09/13/2016 Constitutional No fever 09/13/2016 Constitutional No insomnia 09/13/2016 Constitutional malaise 09/13/2016 Eyes No blindness 09/13/2016 Eyes No vision change 09/13/2016 Ears/Nose/Throat/Neck No dental pain Ears/Nose/Throat/Neck No dizziness 2016 Ears/Nose/Throat/Neck No dysphagia 2016 Ears/Nose/Throat/Neck No headache 2016 Ears/Nose/Throat/Neck No hearing loss Ears/Nose/Throat/Neck No nasal allergies 09/13/2016 Ears/Nose/Throat/Neck No sore throat Ears/Nose/Throat/Neck No postnasal drip 09/13/2016 Ears/Nose/Throat/Neck No sinus congestion 09/13/2016 Cardiovascular No chest pain/pressure Cardiovascular No dyspnea 09/13/2016 Cardiovascular No edema 09/13/2016 Cardiovascular exercise intolerance 09/13 Cardiovascular fatigue 09/13/2016 Cardiovascular No near-syncope/dizziness 09/13/2016 Respiratory No chest tightness 2016 Respiratory No cough 09/13/2016 Respiratory dyspnea 09/13/2016 Respiratory No pedal edema 09/13/2016 Gastrointestinal abdominal pain 2016 Gastrointestinal constipation 09/13/2016 Gastrointestinal diarrhea 09/13/2016 Gastrointestinal gastroesophageal reflux 09/13/2016 Gastrointestinal No nausea 09/13/2016 Gastrointestinal No vomiting 09/13/2016 Genitourinary/Nephrology No dysuria 09/13 Genitourinary/Nephrology No nocturia Genitourinary/Nephrology No urinary incontinence 09/13/2016 Musculoskeletal stiffness 09/13/2016 Musculoskeletal No swelling 09/13/2016 Musculoskeletal back pain 09/13/2016 Musculoskeletal muscle weakness 2016 Musculoskeletal myalgias 09/13/2016 Dermatologic No rash 09/13/2016 Dermatologic No sores 09/13/2016 Dermatologic No scar 09/13/2016 Neurologic No dizziness 09/13/2016 Neurologic No headache 09/13/2016 Neurologic No neck pain 09/13/2016 Neurologic No syncope 09/13/2016 Psychiatric No anxiety 09/13/2016 Psychiatric No depression 09/13/2016 Constitutional No recent illness 2016 Constitutional No chills 06/12/2016 Constitutional fatigue 06/12/2016 Constitutional No fever 06/12/2016 Constitutional No insomnia 06/12/2016 Constitutional malaise 06/12/2016 Eyes No blindness 06/12/2016 Eyes No vision change 06/12/2016 Ears/Nose/Throat/Neck No dental pain Ears/Nose/Throat/Neck No dizziness 2016 Ears/Nose/Throat/Neck No dysphagia 2016 Ears/Nose/Throat/Neck No headache 2016 Ears/Nose/Throat/Neck No hearing loss Ears/Nose/Throat/Neck No nasal allergies 06/12/2016 Ears/Nose/Throat/Neck No sore throat Ears/Nose/Throat/Neck No postnasal drip 06/12/2016 Ears/Nose/Throat/Neck No sinus congestion 06/12/2016 Cardiovascular No chest pain/pressure Cardiovascular No dyspnea 06/12/2016 Cardiovascular No edema 06/12/2016 Cardiovascular exercise intolerance 06/12 Cardiovascular fatigue 06/12/2016 Cardiovascular No near-syncope/dizziness 06/12/2016 Respiratory No chest tightness 2016 Respiratory No cough 06/12/2016 Respiratory dyspnea 06/12/2016 Respiratory No pedal edema 06/12/2016 Gastrointestinal abdominal pain 2016 Gastrointestinal No constipation 2016 Gastrointestinal diarrhea 06/12/2016 Gastrointestinal gastroesophageal reflux 06/12/2016 Genitourinary/Nephrology No dysuria 06/12 Genitourinary/Nephrology No nocturia Genitourinary/Nephrology No urinary incontinence 06/12/2016 Musculoskeletal stiffness 06/12/2016 Musculoskeletal No swelling 06/12/2016 Musculoskeletal back pain 06/12/2016 Musculoskeletal muscle weakness 2016 Musculoskeletal myalgias 06/12/2016 Dermatologic No rash 06/12/2016 Dermatologic No sores 06/12/2016 Dermatologic No scar 06/12/2016 Neurologic No dizziness 06/12/2016 Neurologic No headache 06/12/2016 Neurologic No neck pain 06/12/2016 Neurologic No syncope 06/12/2016 Psychiatric No anxiety 06/12/2016 Psychiatric No depression 06/12/2016 Constitutional No recent illness 2015 Constitutional No chills 03/15/2016 Constitutional fatigue 03/15/2016 Constitutional No fever 03/15/2016 Constitutional No insomnia 03/15/2016 Constitutional malaise 03/15/2016 Eyes No blindness 03/15/2016 Eyes No vision change 03/15/2016 Ears/Nose/Throat/Neck No dental pain Ears/Nose/Throat/Neck No dizziness 2015 Ears/Nose/Throat/Neck No dysphagia 2015 Ears/Nose/Throat/Neck No headache 2015 Ears/Nose/Throat/Neck No hearing loss Ears/Nose/Throat/Neck No nasal allergies 03/15/2016 Ears/Nose/Throat/Neck No sore throat Ears/Nose/Throat/Neck No postnasal drip 03/15/2016 Ears/Nose/Throat/Neck No sinus congestion 03/15/2016 Cardiovascular No chest pain/pressure Cardiovascular No dyspnea 03/15/2016 Cardiovascular No edema 03/15/2016 Cardiovascular exercise intolerance 03/15 Cardiovascular fatigue 03/15/2016 Cardiovascular No near-syncope/dizziness 03/15/2016 Respiratory No chest tightness 2015 Respiratory No cough 03/15/2016 Respiratory dyspnea 03/15/2016 Respiratory No pedal edema 03/15/2016 Gastrointestinal abdominal pain 2015 Gastrointestinal No constipation 2015 Gastrointestinal diarrhea 03/15/2016 Gastrointestinal gastroesophageal reflux 03/15/2016 Genitourinary/Nephrology No dysuria 03/15 Genitourinary/Nephrology No nocturia Genitourinary/Nephrology No urinary incontinence 03/15/2016 Musculoskeletal stiffness 03/15/2016 Musculoskeletal No swelling 03/15/2016 Musculoskeletal back pain 03/15/2016 Musculoskeletal muscle weakness 2015 Musculoskeletal myalgias 03/15/2016 Dermatologic No rash 03/15/2016 Dermatologic No sores 03/15/2016 Dermatologic No scar 03/15/2016 Neurologic No dizziness 03/15/2016 Neurologic No headache 03/15/2016 Neurologic No neck pain 03/15/2016 Neurologic No syncope 03/15/2016 Psychiatric No anxiety 03/15/2016 Psychiatric No depression 03/15/2016 Constitutional No recent illness 2015 Constitutional No chills 12/15/2015 Constitutional fatigue 12/15/2015 Constitutional No fever 12/15/2015 Constitutional No insomnia 12/15/2015 Constitutional malaise 12/15/2015 Eyes No blindness 12/15/2015 Eyes No vision change 12/15/2015 Ears/Nose/Throat/Neck No dental pain Ears/Nose/Throat/Neck No dizziness 2015 Ears/Nose/Throat/Neck No dysphagia 2015 Ears/Nose/Throat/Neck No headache 2015 Ears/Nose/Throat/Neck No hearing loss Ears/Nose/Throat/Neck No nasal allergies 12/15/2015 Ears/Nose/Throat/Neck No sore throat Ears/Nose/Throat/Neck No postnasal drip 12/15/2015 Ears/Nose/Throat/Neck No sinus congestion 12/15/2015 Cardiovascular No chest pain/pressure Cardiovascular No dyspnea 12/15/2015 Cardiovascular No edema 12/15/2015 Cardiovascular exercise intolerance 12/14 Cardiovascular fatigue 12/15/2015 Cardiovascular No near-syncope/dizziness 12/15/2015 Respiratory No chest tightness 2015 Respiratory No cough 12/15/2015 Respiratory dyspnea 12/15/2015 Respiratory No pedal edema 12/15/2015 Gastrointestinal abdominal pain 2015 Gastrointestinal No constipation 2015 Gastrointestinal diarrhea 12/15/2015 Gastrointestinal gastroesophageal reflux 12/15/2015 Genitourinary/Nephrology No dysuria 12/14 Genitourinary/Nephrology No nocturia Genitourinary/Nephrology No urinary incontinence 12/15/2015 Musculoskeletal stiffness 12/15/2015 Musculoskeletal No swelling 12/15/2015 Musculoskeletal back pain 12/15/2015 Musculoskeletal muscle weakness 2015 Musculoskeletal myalgias 12/15/2015 Dermatologic No rash 12/15/2015 Dermatologic No sores 12/15/2015 Dermatologic No scar 12/15/2015 Neurologic No dizziness 12/15/2015 Neurologic No headache 12/15/2015 Neurologic No neck pain 12/15/2015 Neurologic No syncope 12/15/2015 Psychiatric No anxiety 12/15/2015 Psychiatric No depression 12/15/2015 Constitutional No recent illness 2015 Constitutional No chills 09/14/2015 Constitutional fatigue 09/14/2015 Constitutional No fever 09/14/2015 Constitutional No insomnia 09/14/2015 Constitutional malaise 09/14/2015 Eyes No blindness 09/14/2015 Eyes No vision change 09/14/2015 Ears/Nose/Throat/Neck No dental pain Ears/Nose/Throat/Neck No dizziness 2015 Ears/Nose/Throat/Neck No dysphagia 2015 Ears/Nose/Throat/Neck No headache 2015 Ears/Nose/Throat/Neck No hearing loss Ears/Nose/Throat/Neck No nasal allergies 09/14/2015 Ears/Nose/Throat/Neck No sore throat Ears/Nose/Throat/Neck No postnasal drip 09/14/2015 Ears/Nose/Throat/Neck No sinus congestion 09/14/2015 Cardiovascular No chest pain/pressure Cardiovascular No dyspnea 09/14/2015 Cardiovascular No edema 09/14/2015 Cardiovascular exercise intolerance 09/13 Cardiovascular fatigue 09/14/2015 Cardiovascular No near-syncope/dizziness 09/14/2015 Respiratory No chest tightness 2015 Respiratory No cough 09/14/2015 Respiratory dyspnea 09/14/2015 Respiratory No pedal edema 09/14/2015 Gastrointestinal abdominal pain 2015 Gastrointestinal No constipation 2015 Gastrointestinal diarrhea 09/14/2015 Gastrointestinal gastroesophageal reflux 09/14/2015 Gastrointestinal No nausea 09/14/2015 Gastrointestinal No vomiting 09/14/2015 Genitourinary/Nephrology No dysuria 09/13 Genitourinary/Nephrology No nocturia Genitourinary/Nephrology No urinary incontinence 09/14/2015 Musculoskeletal stiffness 09/14/2015 Musculoskeletal No swelling 09/14/2015 Musculoskeletal back pain 09/14/2015 Musculoskeletal muscle weakness 2015 Musculoskeletal myalgias 09/14/2015 Dermatologic No rash 09/14/2015 Dermatologic No sores 09/14/2015 Dermatologic No scar 09/14/2015 Neurologic No dizziness 09/14/2015 Neurologic No headache 09/14/2015 Neurologic No neck pain 09/14/2015 Neurologic No syncope 09/14/2015 Psychiatric No anxiety 09/14/2015 Psychiatric No depression 09/14/2015 Constitutional No recent illness 2015 Constitutional No chills 08/10/2015 Constitutional fatigue 08/10/2015 Constitutional No fever 08/10/2015 Constitutional No insomnia 08/10/2015 Constitutional malaise 08/10/2015 Eyes No blindness 08/10/2015 Eyes No vision change 08/10/2015 Ears/Nose/Throat/Neck No dental pain Ears/Nose/Throat/Neck No dizziness 2015 Ears/Nose/Throat/Neck No dysphagia 2015 Ears/Nose/Throat/Neck No headache 2015 Ears/Nose/Throat/Neck No hearing loss Ears/Nose/Throat/Neck No nasal allergies 08/10/2015 Ears/Nose/Throat/Neck No sore throat Ears/Nose/Throat/Neck No postnasal drip 08/10/2015 Ears/Nose/Throat/Neck No sinus congestion 08/10/2015 Cardiovascular No chest pain/pressure Cardiovascular No dyspnea 08/10/2015 Cardiovascular No edema 08/10/2015 Cardiovascular exercise intolerance 08/09 Cardiovascular fatigue 08/10/2015 Cardiovascular No near-syncope/dizziness 08/10/2015 Respiratory No chest tightness 2015 Respiratory No cough 08/10/2015 Respiratory dyspnea 08/10/2015 Respiratory No pedal edema 08/10/2015 Gastrointestinal No abdominal pain 2015 Gastrointestinal No constipation 2015 Gastrointestinal No diarrhea 08/10/2015 Gastrointestinal gastroesophageal reflux 08/10/2015 Gastrointestinal No nausea 08/10/2015 Gastrointestinal No vomiting 08/10/2015 Genitourinary/Nephrology No dysuria 08/09 Genitourinary/Nephrology No nocturia Genitourinary/Nephrology No urinary incontinence 08/10/2015 Musculoskeletal stiffness 08/10/2015 Musculoskeletal No swelling 08/10/2015 Musculoskeletal back pain 08/10/2015 Musculoskeletal muscle weakness 2015 Musculoskeletal myalgias 08/10/2015 Dermatologic No rash 08/10/2015 Dermatologic No sores 08/10/2015 Dermatologic No scar 08/10/2015 Neurologic No dizziness 08/10/2015 Neurologic No headache 08/10/2015 Neurologic No neck pain 08/10/2015 Neurologic No syncope 08/10/2015 Psychiatric No anxiety 08/10/2015 Psychiatric No depression 08/10/2015 Constitutional No recent illness 2015 Constitutional No chills 07/13/2015 Constitutional fatigue 07/13/2015 Constitutional No fever 07/13/2015 Constitutional No insomnia 07/13/2015 Constitutional malaise 07/13/2015 Eyes No blindness 07/13/2015 Eyes No vision change 07/13/2015 Ears/Nose/Throat/Neck No dental pain Ears/Nose/Throat/Neck No dizziness 2015 Ears/Nose/Throat/Neck No dysphagia 2015 Ears/Nose/Throat/Neck No headache 2015 Ears/Nose/Throat/Neck No hearing loss Ears/Nose/Throat/Neck No nasal allergies 07/13/2015 Ears/Nose/Throat/Neck No sore throat Ears/Nose/Throat/Neck No postnasal drip 07/13/2015 Ears/Nose/Throat/Neck No sinus congestion 07/13/2015 Cardiovascular No chest pain/pressure Cardiovascular No dyspnea 07/13/2015 Cardiovascular No edema 07/13/2015 Cardiovascular exercise intolerance 07/12 Cardiovascular fatigue 07/13/2015 Cardiovascular No near-syncope/dizziness 07/13/2015 Respiratory No chest tightness 2015 Respiratory No cough 07/13/2015 Respiratory dyspnea 07/13/2015 Respiratory No pedal edema 07/13/2015 Gastrointestinal No abdominal pain 2015 Gastrointestinal No constipation 2015 Gastrointestinal No diarrhea 07/13/2015 Gastrointestinal gastroesophageal reflux 07/13/2015 Gastrointestinal No nausea 07/13/2015 Gastrointestinal No vomiting 07/13/2015 Genitourinary/Nephrology No dysuria 07/12 Genitourinary/Nephrology No nocturia Genitourinary/Nephrology No urinary incontinence 07/13/2015 Musculoskeletal stiffness 07/13/2015 Musculoskeletal No swelling 07/13/2015 Musculoskeletal muscle weakness 2015 Musculoskeletal myalgias 07/13/2015 Dermatologic No rash 07/13/2015 Dermatologic No sores 07/13/2015 Dermatologic No scar 07/13/2015 Neurologic No dizziness 07/13/2015 Neurologic No headache 07/13/2015 Neurologic No neck pain 07/13/2015 Neurologic No syncope 07/13/2015 Psychiatric No anxiety 07/13/2015 Psychiatric No depression 07/13/2015 Musculoskeletal back pain 07/13/2015 Constitutional No recent illness 2015 Constitutional No chills 06/27/2015 Constitutional fatigue 06/27/2015 Constitutional No fever 06/27/2015 Constitutional No insomnia 06/27/2015 Constitutional malaise 06/27/2015 Eyes No eye erythema 06/27/2015 Eyes No vision change 06/27/2015 Ears/Nose/Throat/Neck No headache 2015 Ears/Nose/Throat/Neck No nasal allergies 06/27/2015 Ears/Nose/Throat/Neck No sore throat 06/2015 Ears/Nose/Throat/Neck No postnasal drip 06/27/2015 Ears/Nose/Throat/Neck No sinus congestion 06/27/2015 Cardiovascular No chest pain/pressure 06/2015 Cardiovascular No edema 06/27/2015 Cardiovascular fatigue 06/27/2015 Cardiovascular No near-syncope/dizziness 06/27/2015 Respiratory No cough 06/27/2015 Respiratory dyspnea 06/27/2015 Respiratory No pedal edema 06/27/2015 Gastrointestinal abdominal pain 2015 Gastrointestinal constipation 06/27/2015 Gastrointestinal No diarrhea 06/27/2015 Gastrointestinal gastroesophageal reflux 06/27/2015 Gastrointestinal nausea 06/27/2015 Gastrointestinal No vomiting 06/27/2015 Genitourinary/Nephrology No dysuria 06/26 Musculoskeletal stiffness 06/27/2015 Musculoskeletal No swelling 06/27/2015 Musculoskeletal muscle weakness 2015 Musculoskeletal myalgias 06/27/2015 Dermatologic No rash 06/27/2015 Dermatologic No sores 06/27/2015 Dermatologic No scar 06/27/2015 Psychiatric No anxiety 06/27/2015 Psychiatric No depression 06/27/2015 Cardiovascular exercise intolerance 06/26 Gastrointestinal No melena 06/27/2015 Gastrointestinal No hematochezia 2015 Gastrointestinal No hematemesis 2015 Neurologic No alteration of consciousness 06/27/2015 Neurologic No mental status change 2015 Constitutional No recent illness 2015 Constitutional No chills 04/20/2015 Constitutional fatigue 04/20/2015 Constitutional No fever 04/20/2015 Constitutional No insomnia 04/20/2015 Constitutional malaise 04/20/2015 Eyes No blindness 04/20/2015 Eyes No vision change 04/20/2015 Ears/Nose/Throat/Neck No dental pain Ears/Nose/Throat/Neck No dizziness 2015 Ears/Nose/Throat/Neck No dysphagia 2015 Ears/Nose/Throat/Neck No headache 2015 Ears/Nose/Throat/Neck No hearing loss Ears/Nose/Throat/Neck No nasal allergies 04/20/2015 Ears/Nose/Throat/Neck No sore throat Ears/Nose/Throat/Neck No postnasal drip 04/20/2015 Ears/Nose/Throat/Neck No sinus congestion 04/20/2015 Cardiovascular No chest pain/pressure Cardiovascular No dyspnea 04/20/2015 Cardiovascular No edema 04/20/2015 Cardiovascular exercise intolerance 04/20 Cardiovascular fatigue 04/20/2015 Cardiovascular No near-syncope/dizziness 04/20/2015 Respiratory No chest tightness 2015 Respiratory No cough 04/20/2015 Respiratory dyspnea 04/20/2015 Respiratory No pedal edema 04/20/2015 Gastrointestinal No abdominal pain 2015 Gastrointestinal No constipation 2015 Gastrointestinal No diarrhea 04/20/2015 Gastrointestinal No gastroesophageal reflux 04/20/2015 Gastrointestinal No nausea 04/20/2015 Gastrointestinal No vomiting 04/20/2015 Genitourinary/Nephrology No dysuria 04/20 Genitourinary/Nephrology No nocturia Genitourinary/Nephrology No urinary incontinence 04/20/2015 Musculoskeletal stiffness 04/20/2015 Musculoskeletal No swelling 04/20/2015 Musculoskeletal muscle weakness 2015 Musculoskeletal myalgias 04/20/2015 Dermatologic No rash 04/20/2015 Dermatologic No sores 04/20/2015 Dermatologic No scar 04/20/2015 Neurologic No dizziness 04/20/2015 Neurologic No headache 04/20/2015 Neurologic No neck pain 04/20/2015 Neurologic No syncope 04/20/2015 Psychiatric No anxiety 04/20/2015 Psychiatric No depression 04/20/2015 Constitutional No recent illness 2014 Constitutional No chills 01/19/2015 Constitutional No fatigue 01/19/2015 Constitutional No fever 01/19/2015 Constitutional No insomnia 01/19/2015 Constitutional No malaise 01/19/2015 Eyes No blindness 01/19/2015 Eyes No vision change 01/19/2015 Ears/Nose/Throat/Neck No dental pain Ears/Nose/Throat/Neck No dizziness 2014 Ears/Nose/Throat/Neck No dysphagia 2014 Ears/Nose/Throat/Neck No headache 2014 Ears/Nose/Throat/Neck No hearing loss Ears/Nose/Throat/Neck No nasal allergies 01/19/2015 Ears/Nose/Throat/Neck No sore throat Ears/Nose/Throat/Neck No postnasal drip 01/19/2015 Ears/Nose/Throat/Neck No sinus congestion 01/19/2015 Cardiovascular No chest pain/pressure Cardiovascular No dyspnea 01/19/2015 Cardiovascular No edema 01/19/2015 Cardiovascular No exercise intolerance Cardiovascular No fatigue 01/19/2015 Cardiovascular No near-syncope/dizziness 01/19/2015 Respiratory No chest tightness 2014 Respiratory No cough 01/19/2015 Respiratory No dyspnea 01/19/2015 Respiratory No pedal edema 01/19/2015 Gastrointestinal No abdominal pain 2014 Gastrointestinal No constipation 2014 Gastrointestinal No diarrhea 01/19/2015 Gastrointestinal No gastroesophageal reflux 01/19/2015 Gastrointestinal No nausea 01/19/2015 Gastrointestinal No vomiting 01/19/2015 Genitourinary/Nephrology dysuria 2014 Genitourinary/Nephrology nocturia 2014 Genitourinary/Nephrology No urinary incontinence 01/19/2015 Musculoskeletal No stiffness 01/19/2015 Musculoskeletal No swelling 01/19/2015 Musculoskeletal arthralgia(s) 01/19/2015 Musculoskeletal back pain 01/19/2015 Musculoskeletal muscle weakness 2014 Musculoskeletal myalgias 01/19/2015 Dermatologic No rash 01/19/2015 Dermatologic No sores 01/19/2015 Dermatologic No scar 01/19/2015 Neurologic No dizziness 01/19/2015 Neurologic No headache 01/19/2015 Neurologic No neck pain 01/19/2015 Neurologic No syncope 01/19/2015 Psychiatric No anxiety 01/19/2015 Psychiatric No depression 01/19/2015 Constitutional No recent illness 2014 Constitutional No chills 10/20/2014 Constitutional No fatigue 10/20/2014 Constitutional No fever 10/20/2014 Constitutional No insomnia 10/20/2014 Constitutional No malaise 10/20/2014 Eyes No blindness 10/20/2014 Eyes No vision change 10/20/2014 Ears/Nose/Throat/Neck No dental pain Ears/Nose/Throat/Neck No dizziness 2014 Ears/Nose/Throat/Neck No dysphagia 2014 Ears/Nose/Throat/Neck No headache 2014 Ears/Nose/Throat/Neck No hearing loss Ears/Nose/Throat/Neck No nasal allergies 10/20/2014 Ears/Nose/Throat/Neck No sore throat Ears/Nose/Throat/Neck No postnasal drip 10/20/2014 Ears/Nose/Throat/Neck No sinus congestion 10/20/2014 Cardiovascular No chest pain/pressure Cardiovascular No dyspnea 10/20/2014 Cardiovascular No edema 10/20/2014 Cardiovascular No exercise intolerance Cardiovascular No fatigue 10/20/2014 Cardiovascular No near-syncope/dizziness 10/20/2014 Respiratory No chest tightness 2014 Respiratory No cough 10/20/2014 Respiratory No dyspnea 10/20/2014 Respiratory No pedal edema 10/20/2014 Gastrointestinal No abdominal pain 2014 Gastrointestinal No constipation 2014 Gastrointestinal No diarrhea 10/20/2014 Gastrointestinal No gastroesophageal reflux 10/20/2014 Gastrointestinal No nausea 10/20/2014 Gastrointestinal No vomiting 10/20/2014 Genitourinary/Nephrology No dysuria 10/20 Genitourinary/Nephrology No nocturia Genitourinary/Nephrology No urinary incontinence 10/20/2014 Musculoskeletal No stiffness 10/20/2014 Musculoskeletal No swelling 10/20/2014 Musculoskeletal muscle weakness 2014 Musculoskeletal myalgias 10/20/2014 Dermatologic No rash 10/20/2014 Dermatologic No sores 10/20/2014 Dermatologic No scar 10/20/2014 Neurologic No dizziness 10/20/2014 Neurologic No headache 10/20/2014 Neurologic No neck pain 10/20/2014 Neurologic No syncope 10/20/2014 Psychiatric No anxiety 10/20/2014 Psychiatric No depression 10/20/2014 Musculoskeletal arthralgia(s) 10/20/2014 Musculoskeletal back pain 10/20/2014 Cardiovascular No dyspnea 09/16/2014 Gastrointestinal No abdominal pain 2014 Genitourinary/Nephrology No nocturia Neurologic No headache 09/16/2014 Constitutional No recent illness 2014 Constitutional No chills 09/16/2014 Constitutional fatigue 09/16/2014 Constitutional No fever 09/16/2014 Constitutional No insomnia 09/16/2014 Constitutional malaise 09/16/2014 Eyes No blindness 09/16/2014 Eyes No vision change 09/16/2014 Ears/Nose/Throat/Neck No dental pain Ears/Nose/Throat/Neck No dizziness 2014 Ears/Nose/Throat/Neck No dysphagia 2014 Ears/Nose/Throat/Neck No headache 2014 Ears/Nose/Throat/Neck No hearing loss Ears/Nose/Throat/Neck No nasal allergies 09/16/2014 Ears/Nose/Throat/Neck No sore throat Ears/Nose/Throat/Neck No postnasal drip 09/16/2014 Ears/Nose/Throat/Neck No sinus congestion 09/16/2014 Cardiovascular No chest pain/pressure Cardiovascular No edema 09/16/2014 Cardiovascular exercise intolerance 09/16 Cardiovascular fatigue 09/16/2014 Cardiovascular No near-syncope/dizziness 09/16/2014 Respiratory No chest tightness 2014 Respiratory No cough 09/16/2014 Respiratory dyspnea 09/16/2014 Respiratory No pedal edema 09/16/2014 Gastrointestinal No constipation 2014 Gastrointestinal No diarrhea 09/16/2014 Gastrointestinal No gastroesophageal reflux 09/16/2014 Gastrointestinal No nausea 09/16/2014 Gastrointestinal No vomiting 09/16/2014 Genitourinary/Nephrology No dysuria 09/16 Genitourinary/Nephrology No urinary incontinence 09/16/2014 Musculoskeletal stiffness 09/16/2014 Musculoskeletal No swelling 09/16/2014 Musculoskeletal muscle weakness 2014 Musculoskeletal myalgias 09/16/2014 Dermatologic No rash 09/16/2014 Dermatologic No sores 09/16/2014 Dermatologic No scar 09/16/2014 Neurologic No dizziness 09/16/2014 Neurologic No neck pain 09/16/2014 Neurologic No syncope 09/16/2014 Psychiatric No anxiety 09/16/2014 Psychiatric No depression 09/16/2014 Physical Exam Exam Name System Name Item Name Status Result Effective Dates Notes Full Exam - Orthopedics Constitutional general appearance Overall: well nourished 04/02/2017 None Full Exam - Orthopedics Constitutional general appearance Overall: well developed 04/02/2017 None Full Exam - Orthopedics Constitutional general appearance Overall: in no acute distress 04/02/2017 None Full Exam - Orthopedics Eyes conjunctiva/ eyelids Overall: conjunctiva clear 04/02/2017 None Full Exam - Orthopedics Eyes conjunctiva/ eyelids Overall: eyelids normal 04/02/2017 None Full Exam - Orthopedics Ears/Nose/Throat lips/teeth/gingiva Overall: benign lips 04/02/2017 None Full Exam - Orthopedics Ears/Nose/Throat oral cavity/pharynx/larynx Overall: oral mucosa clear 04/02/2017 None Full Exam - Orthopedics Respiratory respiratory effort/rhythm Overall: no retractions 04/02/2017 None Full Exam - Orthopedics Respiratory respiratory effort/rhythm Overall: normal rate 04/02/2017 None Full Exam - Orthopedics Psychiatric orientation/consciousness Overall: oriented to person, place and time 04/02/2017 None Full Exam - Orthopedics Psychiatric mood and affect Overall: normal mood and affect 04/02/2017 None Full Exam - Orthopedics Psychiatric appearance Overall: well-groomed, good eye contact 04/02/2017 None Full Exam - Orthopedics Cardiovascular examination of vasculature Overall: no clubbing, cyanosis, edema 04/02/2017 None Full Exam - Orthopedics MS: head/neck insp & palp - H/N Overall: head atraumatic 04/02/2017 None Full Exam - Orthopedics MS: spine/rib/pelvis insp & palp - S/R/P Sacroiliac palpation: left sacroiliac joint tenderness 04/02/2017 None Full Exam - Orthopedics MS: spine/rib/pelvis insp & palp - S/R/P Sacroiliac palpation: right sacroiliac joint tenderness 04/02/2017 None Full Exam - Orthopedics MS: spine/rib/pelvis insp & palp - S/R/P Lumbar spine palpation: tender lumbar spinous processes 04/02/2017 None Full Exam - Orthopedics MS: right lower extremity insp & palp - RLE Knee: joint swelling 04/02/2017 None Full Exam - Orthopedics MS: right lower extremity range of motion - RLE Knee: pain with flexion 04/02/2017 None Full Exam - Orthopedics MS: right lower extremity range of motion - RLE Knee: pain with extension 04/02/2017 None Full Exam - Orthopedics Chest/Breast breast and axillae palpation Overall: breasts non-tender 04/02/2017 None Full Exam - Orthopedics Chest/Breast breast and axillae palpation Overall: axillae non-tender 04/02/2017 None Full Exam - Orthopedics Chest/Breast breast and axillae palpation Overall: no nipple discharge 04/02/2017 None Full Exam - Orthopedics Chest/Breast breast/chest inspection Overall: breasts to symmetric and without lesions 04/02/2017 None Full Exam - Orthopedics Chest/Breast breast/chest inspection Overall: normal chest shape 04/02/2017 None Full Exam - General 1994 Constitutional general appearance Development: well developed 01/30/2017 None Full Exam - General 1994 Constitutional general appearance Development: appears older than stated age 1101/30/2017 None Full Exam - General 1994 Constitutional general appearance Hygiene/Attention to Grooming: good hygiene 01/30/2017 None Full Exam - General 1994 Constitutional general appearance Hygiene/Attention to Grooming: normal grooming 01/30/2017 None Full Exam - General 1994 Eyes conjunctiva /eyelids Overall: conjunctiva clear 01/30/2017 None Full Exam - General 1994 Eyes conjunctiva /eyelids Overall: eyelids normal 01/30/2017 None Full Exam - General 1994 Eyes pupils and irises Overall: pupils equal, round, reactive to light and accomodation 01/30/2017 None Full Exam - General 1994 Ears/Nose/Throat lips/teeth/gingiva Overall: benign lips 01/30/2017 None Full Exam - General 1994 Ears/Nose/Throat oral cavity/pharynx/larynx Overall: oral mucosa clear 01/30/2017 None Full Exam - General 1994 Ears/Nose/Throat oral cavity/pharynx/larynx Overall: oropharyngeal mucosa clear 01/30/2017 None Full Exam - General 1994 Respiratory auscultation Overall: breath sounds clear bilaterally 01/30/2017 None Full Exam - General 1994 Respiratory respiratory effort/rhythm Overall: no retractions 01/30/2017 None Full Exam - General 1994 Respiratory respiratory effort/rhythm Overall: normal rate 01/30/2017 None Full Exam - General 1994 Cardiovascular auscultation of heart Overall: regular rate 01/30/2017 None Full Exam - General 1994 Cardiovascular auscultation of heart Overall: normal heart sounds 01/30/2017 None Full Exam - General 1994 Abdomen abdominal exam Overall: normal bowel sounds 01/30/2017 None Full Exam - General 1994 Lymphatic neck nodes Overall: anterior cervical chain benign 01/30/2017 None Full Exam - General 1994 Lymphatic neck nodes Overall: posterior cervical chain benign 01/30/2017 None Full Exam - General 1994 Musculoskeletal spine, ribs and pelvis Overall: good posture 01/30/2017 None Full Exam - General 1994 Psychiatric orientation/consciousness Overall: oriented to person, place and time 01/30/2017 None Full Exam - General 1994 Psychiatric mood and affect Overall: normal mood and affect 01/30/2017 None Full Exam - General 1994 Abdomen abdominal exam Epigastric: tender to palpation 01/30/2017 None Full Exam - General 1994 Abdomen abdominal exam Epigastric: dull pain 01/30/2017 None Full Exam - General 1994 Abdomen abdominal exam Epigastric: no rebound tenderness 01/30/2017 None Full Exam - General 1994 Abdomen abdominal exam Epigastric: soft 01/30/2017 None Full Exam - General 1994 Abdomen abdominal exam Upper quadrant: tender to palpation 01/30/2017 None Full Exam - General 1994 Abdomen abdominal exam Upper quadrant: dull pain 01/30/2017 None Full Exam - General 1994 Abdomen abdominal exam Upper quadrant: no rebound tenderness 01/30/2017 None Full Exam - General 1994 Abdomen abdominal exam Upper quadrant: soft 01/30/2017 None Full Exam - General 1994 Abdomen abdominal exam Lower quadrant: non-tender to palpation 01/30/2017 None Full Exam - General 1994 Abdomen abdominal exam Lower quadrant: no rebound tenderness 01/30/2017 None Full Exam - General 1994 Abdomen abdominal exam Lower quadrant: soft 01/30/2017 None Full Exam - General 1994 Constitutional general appearance Development: well developed 01/15/2017 None Full Exam - General 1994 Constitutional general appearance Development: appears older than stated age 1001/15/2017 None Full Exam - General 1994 Constitutional general appearance Hygiene/Attention to Grooming: good hygiene 01/15/2017 None Full Exam - General 1994 Constitutional general appearance Hygiene/Attention to Grooming: normal grooming 01/15/2017 None Full Exam - General 1994 Eyes conjunctiva /eyelids Overall: conjunctiva clear 01/15/2017 None Full Exam - General 1994 Eyes conjunctiva /eyelids Overall: cornea clear 01/15/2017 None Full Exam - General 1994 Eyes conjunctiva /eyelids Overall: eyelids normal 01/15/2017 None Full Exam - General 1994 Eyes pupils and irises Overall: pupils equal, round, reactive to light and accomodation 01/15/2017 None Full Exam - General 1994 Ears/Nose/Throat otoscopic exam Overall: external auditory canals clear 01/15/2017 None Full Exam - General 1994 Ears/Nose/Throat otoscopic exam Overall: tympanic membranes clear 01/15/2017 None Full Exam - General 1994 Ears/Nose/Throat lips/teeth/gingiva Overall: benign lips 01/15/2017 None Full Exam - General 1994 Ears/Nose/Throat lips/teeth/gingiva Overall: normal dentition 01/15/2017 None Full Exam - General 1994 Ears/Nose/Throat oral cavity/pharynx/larynx Overall: oral mucosa clear 01/15/2017 None Full Exam - General 1994 Ears/Nose/Throat oral cavity/pharynx/larynx Overall: oropharyngeal mucosa clear 01/15/2017 None Full Exam - General 1994 Ears/Nose/Throat oral cavity/pharynx/larynx Overall: hypopharynx benign 01/15/2017 None Full Exam - General 1994 Ears/Nose/Throat oral cavity/pharynx/larynx Overall: no masses 01/15/2017 None Full Exam - General 1994 Respiratory auscultation Overall: breath sounds clear bilaterally 01/15/2017 None Full Exam - General 1994 Respiratory respiratory effort/rhythm Overall: no retractions 01/15/2017 None Full Exam - General 1994 Respiratory respiratory effort/rhythm Overall: normal rate 01/15/2017 None Full Exam - General 1994 Cardiovascular extremities Overall: no clubbing 01/15/2017 None Full Exam - General 1994 Cardiovascular auscultation of heart Overall: regular rate 01/15/2017 None Full Exam - General 1994 Cardiovascular auscultation of heart Overall: normal heart sounds 01/15/2017 None Full Exam - General 1994 Abdomen abdominal exam Overall: no tenderness 01/15/2017 None Full Exam - General 1994 Abdomen abdominal exam Overall: normal bowel sounds 01/15/2017 None Full Exam - General 1994 Lymphatic neck nodes Overall: anterior cervical chain benign 01/15/2017 None Full Exam - General 1994 Lymphatic neck nodes Overall: posterior cervical chain benign 01/15/2017 None Full Exam - General 1994 Musculoskeletal spine, ribs and pelvis Overall: good posture 01/15/2017 None Full Exam - General 1994 Psychiatric orientation/consciousness Overall: oriented to person, place and time 01/15/2017 None Full Exam - General 1994 Psychiatric mood and affect Overall: normal mood and affect 01/15/2017 None Full Exam - General 1994 Constitutional general appearance Overall: well developed 09/28/2016 None Full Exam - General 1994 Constitutional general appearance Overall: in no acute distress 09/28/2016 None Full Exam - General 1994 Constitutional general appearance Overall: well nourished 09/28/2016 None Full Exam - General 1994 Eyes conjunctiva /eyelids Overall: conjunctiva clear 09/28/2016 None Full Exam - General 1994 Eyes conjunctiva /eyelids Overall: eyelids normal 09/28/2016 None Full Exam - General 1994 Ears/Nose/Throat lips/teeth/gingiva Overall: benign lips 09/28/2016 None Full Exam - General 1994 Ears/Nose/Throat oral cavity/pharynx/larynx Overall: oral mucosa clear 09/28/2016 None Full Exam - General 1994 Respiratory respiratory effort/rhythm Overall: no retractions 09/28/2016 None Full Exam - General 1994 Respiratory respiratory effort/rhythm Overall: normal rate 09/28/2016 None Full Exam - General 1994 Musculoskeletal head and neck Overall: head atraumatic 09/28/2016 None Full Exam - General 1994 Musculoskeletal gait and station Overall: normal gait 09/28/2016 None Full Exam - General 1994 Musculoskeletal gait and station Overall: normal station 09/28/2016 None Full Exam - General 1994 Neurologic cranial nerves Overall: crainial nerves 2 - 12 grossly intact 09/28/2016 None Full Exam - General 1994 Psychiatric orientation/consciousness Overall: oriented to person, place and time 09/28/2016 None Full Exam - General 1994 Psychiatric mood and affect Overall: normal mood and affect 09/28/2016 None Full Exam - General 1994 Psychiatric appearance Overall: well-groomed, good eye contact 09/28/2016 None Full Exam - General 1994 Constitutional general appearance Development: well developed 09/13/2016 None Full Exam - General 1994 Constitutional general appearance Development: appears older than stated age 0609/13/2016 None Full Exam - General 1994 Constitutional general appearance Hygiene/Attention to Grooming: good hygiene 09/13/2016 None Full Exam - General 1994 Constitutional general appearance Hygiene/Attention to Grooming: normal grooming 09/13/2016 None Full Exam - General 1994 Eyes conjunctiva /eyelids Overall: conjunctiva clear 09/13/2016 None Full Exam - General 1994 Eyes conjunctiva /eyelids Overall: cornea clear 09/13/2016 None Full Exam - General 1994 Eyes conjunctiva /eyelids Overall: eyelids normal 09/13/2016 None Full Exam - General 1994 Eyes pupils and irises Overall: pupils equal, round, reactive to light and accomodation 09/13/2016 None Full Exam - General 1994 Ears/Nose/Throat otoscopic exam Overall: external auditory canals clear 09/13/2016 None Full Exam - General 1994 Ears/Nose/Throat otoscopic exam Overall: tympanic membranes clear 09/13/2016 None Full Exam - General 1994 Ears/Nose/Throat lips/teeth/gingiva Overall: benign lips 09/13/2016 None Full Exam - General 1994 Ears/Nose/Throat lips/teeth/gingiva Overall: normal dentition 09/13/2016 None Full Exam - General 1994 Ears/Nose/Throat oral cavity/pharynx/larynx Overall: oral mucosa clear 09/13/2016 None Full Exam - General 1994 Ears/Nose/Throat oral cavity/pharynx/larynx Overall: oropharyngeal mucosa clear 09/13/2016 None Full Exam - General 1994 Ears/Nose/Throat oral cavity/pharynx/larynx Overall: hypopharynx benign 09/13/2016 None Full Exam - General 1994 Ears/Nose/Throat oral cavity/pharynx/larynx Overall: no masses 09/13/2016 None Full Exam - General 1994 Respiratory auscultation Overall: breath sounds clear bilaterally 09/13/2016 None Full Exam - General 1994 Respiratory respiratory effort/rhythm Overall: no retractions 09/13/2016 None Full Exam - General 1994 Respiratory respiratory effort/rhythm Overall: normal rate 09/13/2016 None Full Exam - General 1994 Cardiovascular extremities Overall: no clubbing 09/13/2016 None Full Exam - General 1994 Cardiovascular auscultation of heart Overall: regular rate 09/13/2016 None Full Exam - General 1994 Cardiovascular auscultation of heart Overall: normal heart sounds 09/13/2016 None Full Exam - General 1994 Abdomen abdominal exam Overall: no tenderness 09/13/2016 None Full Exam - General 1994 Abdomen abdominal exam Overall: normal bowel sounds 09/13/2016 None Full Exam - General 1994 Lymphatic neck nodes Overall: anterior cervical chain benign 09/13/2016 None Full Exam - General 1994 Lymphatic neck nodes Overall: posterior cervical chain benign 09/13/2016 None Full Exam - General 1994 Musculoskeletal spine, ribs and pelvis Overall: good posture 09/13/2016 None Full Exam - General 1994 Psychiatric orientation/consciousness Overall: oriented to person, place and time 09/13/2016 None Full Exam - General 1994 Psychiatric mood and affect Overall: normal mood and affect 09/13/2016 None Full Exam - General 1994 Constitutional general appearance Development: well developed 06/12/2016 None Full Exam - General 1994 Constitutional general appearance Development: appears older than stated age 0306/12/2016 None Full Exam - General 1994 Constitutional general appearance Hygiene/Attention to Grooming: good hygiene 06/12/2016 None Full Exam - General 1994 Constitutional general appearance Hygiene/Attention to Grooming: normal grooming 06/12/2016 None Full Exam - General 1994 Eyes conjunctiva /eyelids Overall: conjunctiva clear 06/12/2016 None Full Exam - General 1994 Eyes conjunctiva /eyelids Overall: cornea clear 06/12/2016 None Full Exam - General 1994 Eyes conjunctiva /eyelids Overall: eyelids normal 06/12/2016 None Full Exam - General 1994 Eyes pupils and irises Overall: pupils equal, round, reactive to light and accomodation 06/12/2016 None Full Exam - General 1994 Ears/Nose/Throat otoscopic exam Overall: external auditory canals clear 06/12/2016 None Full Exam - General 1994 Ears/Nose/Throat otoscopic exam Overall: tympanic membranes clear 06/12/2016 None Full Exam - General 1994 Ears/Nose/Throat lips/teeth/gingiva Overall: benign lips 06/12/2016 None Full Exam - General 1994 Ears/Nose/Throat lips/teeth/gingiva Overall: normal dentition 06/12/2016 None Full Exam - General 1994 Ears/Nose/Throat oral cavity/pharynx/larynx Overall: oral mucosa clear 06/12/2016 None Full Exam - General 1994 Ears/Nose/Throat oral cavity/pharynx/larynx Overall: oropharyngeal mucosa clear 06/12/2016 None Full Exam - General 1994 Ears/Nose/Throat oral cavity/pharynx/larynx Overall: hypopharynx benign 06/12/2016 None Full Exam - General 1994 Ears/Nose/Throat oral cavity/pharynx/larynx Overall: no masses 06/12/2016 None Full Exam - General 1994 Respiratory auscultation Overall: breath sounds clear bilaterally 06/12/2016 None Full Exam - General 1994 Respiratory respiratory effort/rhythm Overall: no retractions 06/12/2016 None Full Exam - General 1994 Respiratory respiratory effort/rhythm Overall: normal rate 06/12/2016 None Full Exam - General 1994 Cardiovascular extremities Overall: no clubbing 06/12/2016 None Full Exam - General 1994 Cardiovascular auscultation of heart Overall: regular rate 06/12/2016 None Full Exam - General 1994 Cardiovascular auscultation of heart Overall: normal heart sounds 06/12/2016 None Full Exam - General 1994 Abdomen abdominal exam Overall: no tenderness 06/12/2016 None Full Exam - General 1994 Abdomen abdominal exam Overall: normal bowel sounds 06/12/2016 None Full Exam - General 1994 Lymphatic neck nodes Overall: anterior cervical chain benign 06/12/2016 None Full Exam - General 1994 Lymphatic neck nodes Overall: posterior cervical chain benign 06/12/2016 None Full Exam - General 1994 Musculoskeletal spine, ribs and pelvis Overall: good posture 06/12/2016 None Full Exam - General 1994 Psychiatric orientation/consciousness Overall: oriented to person, place and time 06/12/2016 None Full Exam - General 1994 Psychiatric mood and affect Overall: normal mood and affect 06/12/2016 None Full Exam - General 1994 Constitutional general appearance Development: well developed 03/15/2016 None Full Exam - General 1994 Constitutional general appearance Development: appears older than stated age 1203/15/2016 None Full Exam - General 1994 Constitutional general appearance Hygiene/Attention to Grooming: good hygiene 03/15/2016 None Full Exam - General 1994 Constitutional general appearance Hygiene/Attention to Grooming: normal grooming 03/15/2016 None Full Exam - General 1994 Eyes conjunctiva /eyelids Overall: conjunctiva clear 03/15/2016 None Full Exam - General 1994 Eyes conjunctiva /eyelids Overall: cornea clear 03/15/2016 None Full Exam - General 1994 Eyes conjunctiva /eyelids Overall: eyelids normal 03/15/2016 None Full Exam - General 1994 Eyes pupils and irises Overall: pupils equal, round, reactive to light and accomodation 03/15/2016 None Full Exam - General 1994 Ears/Nose/Throat otoscopic exam Overall: external auditory canals clear 03/15/2016 None Full Exam - General 1994 Ears/Nose/Throat otoscopic exam Overall: tympanic membranes clear 03/15/2016 None Full Exam - General 1994 Ears/Nose/Throat lips/teeth/gingiva Overall: benign lips 03/15/2016 None Full Exam - General 1994 Ears/Nose/Throat lips/teeth/gingiva Overall: normal dentition 03/15/2016 None Full Exam - General 1994 Ears/Nose/Throat oral cavity/pharynx/larynx Overall: oral mucosa clear 03/15/2016 None Full Exam - General 1994 Ears/Nose/Throat oral cavity/pharynx/larynx Overall: oropharyngeal mucosa clear 03/15/2016 None Full Exam - General 1994 Ears/Nose/Throat oral cavity/pharynx/larynx Overall: hypopharynx benign 03/15/2016 None Full Exam - General 1994 Ears/Nose/Throat oral cavity/pharynx/larynx Overall: no masses 03/15/2016 None Full Exam - General 1994 Respiratory auscultation Overall: breath sounds clear bilaterally 03/15/2016 None Full Exam - General 1994 Respiratory respiratory effort/rhythm Overall: no retractions 03/15/2016 None Full Exam - General 1994 Respiratory respiratory effort/rhythm Overall: normal rate 03/15/2016 None Full Exam - General 1994 Cardiovascular extremities Overall: no clubbing 03/15/2016 None Full Exam - General 1994 Cardiovascular auscultation of heart Overall: regular rate 03/15/2016 None Full Exam - General 1994 Cardiovascular auscultation of heart Overall: normal heart sounds 03/15/2016 None Full Exam - General 1994 Abdomen abdominal exam Overall: no tenderness 03/15/2016 None Full Exam - General 1994 Abdomen abdominal exam Overall: normal bowel sounds 03/15/2016 None Full Exam - General 1994 Lymphatic neck nodes Overall: anterior cervical chain benign 03/15/2016 None Full Exam - General 1994 Lymphatic neck nodes Overall: posterior cervical chain benign 03/15/2016 None Full Exam - General 1994 Musculoskeletal spine, ribs and pelvis Overall: good posture 03/15/2016 None Full Exam - General 1994 Psychiatric orientation/consciousness Overall: oriented to person, place and time 03/15/2016 None Full Exam - General 1994 Psychiatric mood and affect Overall: normal mood and affect 03/15/2016 None Full Exam - General 1994 Constitutional general appearance Development: well developed 12/15/2015 None Full Exam - General 1994 Constitutional general appearance Development: appears older than stated age 0912/15/2015 None Full Exam - General 1994 Constitutional general appearance Hygiene/Attention to Grooming: good hygiene 12/15/2015 None Full Exam - General 1994 Constitutional general appearance Hygiene/Attention to Grooming: normal grooming 12/15/2015 None Full Exam - General 1994 Eyes conjunctiva /eyelids Overall: conjunctiva clear 12/15/2015 None Full Exam - General 1994 Eyes conjunctiva /eyelids Overall: cornea clear 12/15/2015 None Full Exam - General 1994 Eyes conjunctiva /eyelids Overall: eyelids normal 12/15/2015 None Full Exam - General 1994 Eyes pupils and irises Overall: pupils equal, round, reactive to light and accomodation 12/15/2015 None Full Exam - General 1994 Ears/Nose/Throat otoscopic exam Overall: external auditory canals clear 12/15/2015 None Full Exam - General 1994 Ears/Nose/Throat otoscopic exam Overall: tympanic membranes clear 12/15/2015 None Full Exam - General 1994 Ears/Nose/Throat lips/teeth/gingiva Overall: benign lips 12/15/2015 None Full Exam - General 1994 Ears/Nose/Throat lips/teeth/gingiva Overall: normal dentition 12/15/2015 None Full Exam - General 1994 Ears/Nose/Throat oral cavity/pharynx/larynx Overall: oral mucosa clear 12/15/2015 None Full Exam - General 1994 Ears/Nose/Throat oral cavity/pharynx/larynx Overall: oropharyngeal mucosa clear 12/15/2015 None Full Exam - General 1994 Ears/Nose/Throat oral cavity/pharynx/larynx Overall: hypopharynx benign 12/15/2015 None Full Exam - General 1994 Ears/Nose/Throat oral cavity/pharynx/larynx Overall: no masses 12/15/2015 None Full Exam - General 1994 Respiratory auscultation Overall: breath sounds clear bilaterally 12/15/2015 None Full Exam - General 1994 Respiratory respiratory effort/rhythm Overall: no retractions 12/15/2015 None Full Exam - General 1994 Respiratory respiratory effort/rhythm Overall: normal rate 12/15/2015 None Full Exam - General 1994 Cardiovascular extremities Overall: no clubbing 12/15/2015 None Full Exam - General 1994 Cardiovascular auscultation of heart Overall: regular rate 12/15/2015 None Full Exam - General 1994 Cardiovascular auscultation of heart Overall: normal heart sounds 12/15/2015 None Full Exam - General 1994 Abdomen abdominal exam Overall: no tenderness 12/15/2015 None Full Exam - General 1994 Abdomen abdominal exam Overall: normal bowel sounds 12/15/2015 None Full Exam - General 1994 Lymphatic neck nodes Overall: anterior cervical chain benign 12/15/2015 None Full Exam - General 1994 Lymphatic neck nodes Overall: posterior cervical chain benign 12/15/2015 None Full Exam - General 1994 Musculoskeletal spine, ribs and pelvis Overall: good posture 12/15/2015 None Full Exam - General 1994 Psychiatric orientation/consciousness Overall: oriented to person, place and time 12/15/2015 None Full Exam - General 1994 Psychiatric mood and affect Overall: normal mood and affect 12/15/2015 None Full Exam - General 1994 Constitutional general appearance Development: well developed 09/14/2015 None Full Exam - General 1994 Constitutional general appearance Development: appears older than stated age 0609/14/2015 None Full Exam - General 1994 Constitutional general appearance Hygiene/Attention to Grooming: good hygiene 09/14/2015 None Full Exam - General 1994 Constitutional general appearance Hygiene/Attention to Grooming: normal grooming 09/14/2015 None Full Exam - General 1994 Eyes conjunctiva /eyelids Overall: conjunctiva clear 09/14/2015 None Full Exam - General 1994 Eyes conjunctiva /eyelids Overall: cornea clear 09/14/2015 None Full Exam - General 1994 Eyes conjunctiva /eyelids Overall: eyelids normal 09/14/2015 None Full Exam - General 1994 Eyes pupils and irises Overall: pupils equal, round, reactive to light and accomodation 09/14/2015 None Full Exam - General 1994 Ears/Nose/Throat otoscopic exam Overall: external auditory canals clear 09/14/2015 None Full Exam - General 1994 Ears/Nose/Throat otoscopic exam Overall: tympanic membranes clear 09/14/2015 None Full Exam - General 1994 Ears/Nose/Throat lips/teeth/gingiva Overall: benign lips 09/14/2015 None Full Exam - General 1994 Ears/Nose/Throat lips/teeth/gingiva Overall: normal dentition 09/14/2015 None Full Exam - General 1994 Ears/Nose/Throat oral cavity/pharynx/larynx Overall: oral mucosa clear 09/14/2015 None Full Exam - General 1994 Ears/Nose/Throat oral cavity/pharynx/larynx Overall: oropharyngeal mucosa clear 09/14/2015 None Full Exam - General 1994 Ears/Nose/Throat oral cavity/pharynx/larynx Overall: hypopharynx benign 09/14/2015 None Full Exam - General 1994 Ears/Nose/Throat oral cavity/pharynx/larynx Overall: no masses 09/14/2015 None Full Exam - General 1994 Respiratory auscultation Overall: breath sounds clear bilaterally 09/14/2015 None Full Exam - General 1994 Respiratory respiratory effort/rhythm Overall: no retractions 09/14/2015 None Full Exam - General 1994 Respiratory respiratory effort/rhythm Overall: normal rate 09/14/2015 None Full Exam - General 1994 Cardiovascular extremities Overall: no clubbing 09/14/2015 None Full Exam - General 1994 Cardiovascular auscultation of heart Overall: regular rate 09/14/2015 None Full Exam - General 1994 Cardiovascular auscultation of heart Overall: normal heart sounds 09/14/2015 None Full Exam - General 1994 Abdomen abdominal exam Overall: no tenderness 09/14/2015 None Full Exam - General 1994 Abdomen abdominal exam Overall: normal bowel sounds 09/14/2015 None Full Exam - General 1994 Lymphatic neck nodes Overall: anterior cervical chain benign 09/14/2015 None Full Exam - General 1994 Lymphatic neck nodes Overall: posterior cervical chain benign 09/14/2015 None Full Exam - General 1994 Musculoskeletal spine, ribs and pelvis Overall: good posture 09/14/2015 None Full Exam - General 1994 Psychiatric orientation/consciousness Overall: oriented to person, place and time 09/14/2015 None Full Exam - General 1994 Psychiatric mood and affect Overall: normal mood and affect 09/14/2015 None Full Exam - General 1994 Constitutional general appearance Development: well developed 08/10/2015 None Full Exam - General 1994 Constitutional general appearance Development: appears older than stated age 0508/10/2015 None Full Exam - General 1994 Constitutional general appearance Hygiene/Attention to Grooming: good hygiene 08/10/2015 None Full Exam - General 1994 Constitutional general appearance Hygiene/Attention to Grooming: normal grooming 08/10/2015 None Full Exam - General 1994 Eyes conjunctiva /eyelids Overall: conjunctiva clear 08/10/2015 None Full Exam - General 1994 Eyes conjunctiva /eyelids Overall: cornea clear 08/10/2015 None Full Exam - General 1994 Eyes conjunctiva /eyelids Overall: eyelids normal 08/10/2015 None Full Exam - General 1994 Eyes pupils and irises Overall: pupils equal, round, reactive to light and accomodation 08/10/2015 None Full Exam - General 1994 Ears/Nose/Throat otoscopic exam Overall: external auditory canals clear 08/10/2015 None Full Exam - General 1994 Ears/Nose/Throat otoscopic exam Overall: tympanic membranes clear 08/10/2015 None Full Exam - General 1994 Ears/Nose/Throat lips/teeth/gingiva Overall: benign lips 08/10/2015 None Full Exam - General 1994 Ears/Nose/Throat lips/teeth/gingiva Overall: normal dentition 08/10/2015 None Full Exam - General 1994 Ears/Nose/Throat oral cavity/pharynx/larynx Overall: oral mucosa clear 08/10/2015 None Full Exam - General 1994 Ears/Nose/Throat oral cavity/pharynx/larynx Overall: oropharyngeal mucosa clear 08/10/2015 None Full Exam - General 1994 Ears/Nose/Throat oral cavity/pharynx/larynx Overall: hypopharynx benign 08/10/2015 None Full Exam - General 1994 Ears/Nose/Throat oral cavity/pharynx/larynx Overall: no masses 08/10/2015 None Full Exam - General 1994 Respiratory auscultation Overall: breath sounds clear bilaterally 08/10/2015 None Full Exam - General 1994 Respiratory respiratory effort/rhythm Overall: no retractions 08/10/2015 None Full Exam - General 1994 Respiratory respiratory effort/rhythm Overall: normal rate 08/10/2015 None Full Exam - General 1994 Cardiovascular extremities Overall: no clubbing 08/10/2015 None Full Exam - General 1994 Cardiovascular auscultation of heart Overall: regular rate 08/10/2015 None Full Exam - General 1994 Cardiovascular auscultation of heart Overall: normal heart sounds 08/10/2015 None Full Exam - General 1994 Abdomen abdominal exam Overall: no tenderness 08/10/2015 None Full Exam - General 1994 Abdomen abdominal exam Overall: normal bowel sounds 08/10/2015 None Full Exam - General 1994 Lymphatic neck nodes Overall: anterior cervical chain benign 08/10/2015 None Full Exam - General 1994 Lymphatic neck nodes Overall: posterior cervical chain benign 08/10/2015 None Full Exam - General 1994 Musculoskeletal spine, ribs and pelvis Overall: spine benign 08/10/2015 None Full Exam - General 1994 Musculoskeletal spine, ribs and pelvis Overall: sacroiliac joint benign 08/10/2015 None Full Exam - General 1994 Musculoskeletal spine, ribs and pelvis Overall: good posture 08/10/2015 None Full Exam - General 1994 Musculoskeletal head and neck Overall: head atraumatic 08/10/2015 None Full Exam - General 1994 Musculoskeletal head and neck Overall: cervical spine benign 08/10/2015 None Full Exam - General 1994 Integument inspection of skin Pigmentation: ecchymosis 08/10/2015 left lateral hip/ buttock Full Exam - General 1994 Neurologic deep tendon reflexes Overall: deep tendon reflexes intact 08/10/2015 None Full Exam - General 1994 Neurologic cranial nerves Overall: crainial nerves 2 - 12 grossly intact 08/10/2015 None Full Exam - General 1994 Psychiatric orientation/consciousness Overall: oriented to person, place and time 08/10/2015 None Full Exam - General 1994 Psychiatric mood and affect Overall: normal mood and affect 08/10/2015 None Full Exam - General 1994 Constitutional general appearance Development: well developed 07/13/2015 None Full Exam - General 1994 Constitutional general appearance Development: appears older than stated age 0407/13/2015 None Full Exam - General 1994 Constitutional general appearance Hygiene/Attention to Grooming: good hygiene 07/13/2015 None Full Exam - General 1994 Constitutional general appearance Hygiene/Attention to Grooming: normal grooming 07/13/2015 None Full Exam - General 1994 Eyes conjunctiva /eyelids Overall: conjunctiva clear 07/13/2015 None Full Exam - General 1994 Eyes conjunctiva /eyelids Overall: cornea clear 07/13/2015 None Full Exam - General 1994 Eyes conjunctiva /eyelids Overall: eyelids normal 07/13/2015 None Full Exam - General 1994 Eyes pupils and irises Overall: pupils equal, round, reactive to light and accomodation 07/13/2015 None Full Exam - General 1994 Ears/Nose/Throat otoscopic exam Overall: external auditory canals clear 07/13/2015 None Full Exam - General 1994 Ears/Nose/Throat otoscopic exam Overall: tympanic membranes clear 07/13/2015 None Full Exam - General 1994 Ears/Nose/Throat lips/teeth/gingiva Overall: benign lips 07/13/2015 None Full Exam - General 1994 Ears/Nose/Throat lips/teeth/gingiva Overall: normal dentition 07/13/2015 None Full Exam - General 1994 Ears/Nose/Throat oral cavity/pharynx/larynx Overall: oral mucosa clear 07/13/2015 None Full Exam - General 1994 Ears/Nose/Throat oral cavity/pharynx/larynx Overall: oropharyngeal mucosa clear 07/13/2015 None Full Exam - General 1994 Ears/Nose/Throat oral cavity/pharynx/larynx Overall: hypopharynx benign 07/13/2015 None Full Exam - General 1994 Ears/Nose/Throat oral cavity/pharynx/larynx Overall: no masses 07/13/2015 None Full Exam - General 1994 Respiratory auscultation Overall: breath sounds clear bilaterally 07/13/2015 None Full Exam - General 1994 Respiratory respiratory effort/rhythm Overall: no retractions 07/13/2015 None Full Exam - General 1994 Respiratory respiratory effort/rhythm Overall: normal rate 07/13/2015 None Full Exam - General 1994 Cardiovascular extremities Overall: no clubbing 07/13/2015 None Full Exam - General 1994 Cardiovascular auscultation of heart Overall: regular rate 07/13/2015 None Full Exam - General 1994 Cardiovascular auscultation of heart Overall: normal heart sounds 07/13/2015 None Full Exam - General 1994 Abdomen abdominal exam Overall: no tenderness 07/13/2015 None Full Exam - General 1994 Abdomen abdominal exam Overall: normal bowel sounds 07/13/2015 None Full Exam - General 1994 Lymphatic neck nodes Overall: anterior cervical chain benign 07/13/2015 None Full Exam - General 1994 Lymphatic neck nodes Overall: posterior cervical chain benign 07/13/2015 None Full Exam - General 1994 Musculoskeletal spine, ribs and pelvis Overall: spine benign 07/13/2015 None Full Exam - General 1994 Musculoskeletal spine, ribs and pelvis Overall: sacroiliac joint benign 07/13/2015 None Full Exam - General 1994 Musculoskeletal spine, ribs and pelvis Overall: good posture 07/13/2015 None Full Exam - General 1994 Musculoskeletal head and neck Overall: head atraumatic 07/13/2015 None Full Exam - General 1994 Musculoskeletal head and neck Overall: cervical spine benign 07/13/2015 None Full Exam - General 1994 Integument inspection of skin Pigmentation: ecchymosis 07/13/2015 left lateral hip/ buttock Full Exam - General 1994 Neurologic deep tendon reflexes Overall: deep tendon reflexes intact 07/13/2015 None Full Exam - General 1994 Neurologic cranial nerves Overall: crainial nerves 2 - 12 grossly intact 07/13/2015 None Full Exam - General 1994 Psychiatric orientation/consciousness Overall: oriented to person, place and time 07/13/2015 None Full Exam - General 1994 Psychiatric mood and affect Overall: normal mood and affect 07/13/2015 None Full Exam - General 1994 Constitutional general appearance Development: well developed 06/27/2015 None Full Exam - General 1994 Constitutional general appearance Development: appears older than stated age 0406/27/2015 None Full Exam - General 1994 Constitutional general appearance Hygiene/Attention to Grooming: normal grooming 06/27/2015 None Full Exam - General 1994 Eyes conjunctiva /eyelids Overall: conjunctiva clear 06/27/2015 None Full Exam - General 1994 Eyes conjunctiva /eyelids Overall: cornea clear 06/27/2015 None Full Exam - General 1994 Eyes conjunctiva /eyelids Overall: eyelids normal 06/27/2015 None Full Exam - General 1994 Eyes pupils and irises Overall: pupils equal, round, reactive to light and accomodation 06/27/2015 None Full Exam - General 1994 Ears/Nose/Throat lips/teeth/gingiva Overall: benign lips 06/27/2015 None Full Exam - General 1994 Ears/Nose/Throat lips/teeth/gingiva Overall: normal dentition 06/27/2015 None Full Exam - General 1994 Respiratory respiratory effort/rhythm Overall: no retractions 06/27/2015 None Full Exam - General 1994 Respiratory respiratory effort/rhythm Overall: normal rate 06/27/2015 None Full Exam - General 1994 Musculoskeletal spine, ribs and pelvis Overall: good posture 06/27/2015 None Full Exam - General 1994 Musculoskeletal head and neck Overall: head atraumatic 06/27/2015 None Full Exam - General 1994 Musculoskeletal head and neck Overall: cervical spine benign 06/27/2015 None Full Exam - General 1994 Neurologic cranial nerves Overall: crainial nerves 2 - 12 grossly intact 06/27/2015 None Full Exam - General 1994 Psychiatric orientation/consciousness Overall: oriented to person, place and time 06/27/2015 None Full Exam - General 1994 Psychiatric mood and affect Overall: normal mood and affect 06/27/2015 None Full Exam - General 1994 Abdomen abdominal exam Contour: flat 06/27/2015 None Full Exam - General 1994 Abdomen abdominal exam Bowel sounds: hyperactive 06/27/2015 None Full Exam - General 1994 Abdomen abdominal exam Percussion: tympanitic 06/27/2015 None Full Exam - General 1994 Abdomen abdominal exam Upper quadrant: tender to palpation 06/27/2015 None Full Exam - General 1994 Abdomen abdominal exam Upper quadrant: sharp pain 06/27/2015 None Full Exam - General 1994 Abdomen abdominal exam Upper quadrant: voluntary guarding 06/27/2015 None Full Exam - General 1994 Abdomen abdominal exam Upper quadrant: no rebound tenderness 06/27/2015 None Full Exam - General 1994 Abdomen abdominal exam Upper quadrant: no mass lesions 06/27/2015 None Full Exam - General 1994 Abdomen abdominal exam Upper quadrant: soft 06/27/2015 None Full Exam - General 1994 Abdomen abdominal exam Lower quadrant: tender to palpation 06/27/2015 None Full Exam - General 1994 Abdomen abdominal exam Lower quadrant: non-tender to palpation 06/27/2015 None Full Exam - General 1994 Abdomen abdominal exam Lower quadrant: dull pain 06/27/2015 None Full Exam - General 1994 Abdomen abdominal exam Lower quadrant: no guarding 06/27/2015 None Full Exam - General 1994 Abdomen abdominal exam Lower quadrant: no rebound tenderness 06/27/2015 None Full Exam - General 1994 Abdomen abdominal exam Lower quadrant: no mass lesions 06/27/2015 None Full Exam - General 1994 Abdomen abdominal exam Lower quadrant: soft 06/27/2015 None Full Exam - General 1994 Abdomen abdominal exam Epigastric: tender to palpation 06/27/2015 None Full Exam - General 1994 Abdomen abdominal exam Epigastric: sharp pain 06/27/2015 None Full Exam - General 1994 Abdomen abdominal exam Epigastric: no rebound tenderness 06/27/2015 None Full Exam - General 1994 Abdomen abdominal exam Epigastric: no mass lesions 06/27/2015 None Full Exam - General 1994 Abdomen abdominal exam Epigastric: soft 06/27/2015 None Full Exam - General 1994 Abdomen abdominal exam Epigastric: involuntary guarding 06/27/2015 None Full Exam - General 1994 Constitutional general appearance Development: well developed 04/20/2015 None Full Exam - General 1994 Constitutional general appearance Development: appears older than stated age 0104/20/2015 None Full Exam - General 1994 Constitutional general appearance Hygiene/Attention to Grooming: good hygiene 04/20/2015 None Full Exam - General 1994 Constitutional general appearance Hygiene/Attention to Grooming: normal grooming 04/20/2015 None Full Exam - General 1994 Eyes conjunctiva /eyelids Overall: conjunctiva clear 04/20/2015 None Full Exam - General 1994 Eyes conjunctiva /eyelids Overall: cornea clear 04/20/2015 None Full Exam - General 1994 Eyes conjunctiva /eyelids Overall: eyelids normal 04/20/2015 None Full Exam - General 1994 Eyes pupils and irises Overall: pupils equal, round, reactive to light and accomodation 04/20/2015 None Full Exam - General 1994 Ears/Nose/Throat otoscopic exam Overall: external auditory canals clear 04/20/2015 None Full Exam - General 1994 Ears/Nose/Throat otoscopic exam Overall: tympanic membranes clear 04/20/2015 None Full Exam - General 1994 Ears/Nose/Throat lips/teeth/gingiva Overall: benign lips 04/20/2015 None Full Exam - General 1994 Ears/Nose/Throat lips/teeth/gingiva Overall: normal dentition 04/20/2015 None Full Exam - General 1994 Ears/Nose/Throat oral cavity/pharynx/larynx Overall: oral mucosa clear 04/20/2015 None Full Exam - General 1994 Ears/Nose/Throat oral cavity/pharynx/larynx Overall: oropharyngeal mucosa clear 04/20/2015 None Full Exam - General 1994 Ears/Nose/Throat oral cavity/pharynx/larynx Overall: hypopharynx benign 04/20/2015 None Full Exam - General 1994 Ears/Nose/Throat oral cavity/pharynx/larynx Overall: no masses 04/20/2015 None Full Exam - General 1994 Respiratory auscultation Overall: breath sounds clear bilaterally 04/20/2015 None Full Exam - General 1994 Respiratory respiratory effort/rhythm Overall: no retractions 04/20/2015 None Full Exam - General 1994 Respiratory respiratory effort/rhythm Overall: normal rate 04/20/2015 None Full Exam - General 1994 Cardiovascular extremities Overall: no clubbing 04/20/2015 None Full Exam - General 1994 Cardiovascular auscultation of heart Overall: regular rate 04/20/2015 None Full Exam - General 1994 Cardiovascular auscultation of heart Overall: normal heart sounds 04/20/2015 None Full Exam - General 1994 Abdomen abdominal exam Overall: no tenderness 04/20/2015 None Full Exam - General 1994 Abdomen abdominal exam Overall: normal bowel sounds 04/20/2015 None Full Exam - General 1994 Lymphatic neck nodes Overall: anterior cervical chain benign 04/20/2015 None Full Exam - General 1994 Lymphatic neck nodes Overall: posterior cervical chain benign 04/20/2015 None Full Exam - General 1994 Musculoskeletal spine, ribs and pelvis Overall: spine benign 04/20/2015 None Full Exam - General 1994 Musculoskeletal spine, ribs and pelvis Overall: sacroiliac joint benign 04/20/2015 None Full Exam - General 1994 Musculoskeletal spine, ribs and pelvis Overall: good posture 04/20/2015 None Full Exam - General 1994 Musculoskeletal head and neck Overall: head atraumatic 04/20/2015 None Full Exam - General 1994 Musculoskeletal head and neck Overall: cervical spine benign 04/20/2015 None Full Exam - General 1994 Neurologic deep tendon reflexes Overall: deep tendon reflexes intact 04/20/2015 None Full Exam - General 1994 Neurologic cranial nerves Overall: crainial nerves 2 - 12 grossly intact 04/20/2015 None Full Exam - General 1994 Psychiatric orientation/consciousness Overall: oriented to person, place and time 04/20/2015 None Full Exam - General 1994 Psychiatric mood and affect Overall: normal mood and affect 04/20/2015 None Full Exam - General 1994 Integument inspection of skin Pigmentation: ecchymosis 04/20/2015 left lateral hip/ buttock Full Exam - General 1994 Constitutional general appearance Development: well developed 01/19/2015 None Full Exam - General 1994 Constitutional general appearance Development: appears stated age 1001/19/2015 None Full Exam - General 1994 Constitutional general appearance Hygiene/Attention to Grooming: good hygiene 01/19/2015 None Full Exam - General 1994 Eyes conjunctiva /eyelids Overall: conjunctiva clear 01/19/2015 None Full Exam - General 1994 Eyes conjunctiva /eyelids Overall: cornea clear 01/19/2015 None Full Exam - General 1994 Eyes conjunctiva /eyelids Overall: eyelids normal 01/19/2015 None Full Exam - General 1994 Eyes pupils and irises Overall: pupils equal, round, reactive to light and accomodation 01/19/2015 None Full Exam - General 1994 Ears/Nose/Throat otoscopic exam Overall: external auditory canals clear 01/19/2015 None Full Exam - General 1994 Ears/Nose/Throat otoscopic exam Overall: tympanic membranes clear 01/19/2015 None Full Exam - General 1994 Ears/Nose/Throat lips/teeth/gingiva Overall: benign lips 01/19/2015 None Full Exam - General 1994 Ears/Nose/Throat lips/teeth/gingiva Overall: normal dentition 01/19/2015 None Full Exam - General 1994 Ears/Nose/Throat oral cavity/pharynx/larynx Overall: oral mucosa clear 01/19/2015 None Full Exam - General 1994 Ears/Nose/Throat oral cavity/pharynx/larynx Overall: oropharyngeal mucosa clear 01/19/2015 None Full Exam - General 1994 Ears/Nose/Throat oral cavity/pharynx/larynx Overall: hypopharynx benign 01/19/2015 None Full Exam - General 1994 Ears/Nose/Throat oral cavity/pharynx/larynx Overall: no masses 01/19/2015 None Full Exam - General 1994 Respiratory auscultation Overall: breath sounds clear bilaterally 01/19/2015 None Full Exam - General 1994 Respiratory respiratory effort/rhythm Overall: no retractions 01/19/2015 None Full Exam - General 1994 Respiratory respiratory effort/rhythm Overall: normal rate 01/19/2015 None Full Exam - General 1994 Cardiovascular extremities Overall: no clubbing 01/19/2015 None Full Exam - General 1994 Cardiovascular auscultation of heart Overall: regular rate 01/19/2015 None Full Exam - General 1994 Cardiovascular auscultation of heart Overall: normal heart sounds 01/19/2015 None Full Exam - General 1994 Abdomen abdominal exam Overall: no tenderness 01/19/2015 None Full Exam - General 1994 Abdomen abdominal exam Overall: normal bowel sounds 01/19/2015 None Full Exam - General 1994 Neurologic deep tendon reflexes Overall: deep tendon reflexes intact 01/19/2015 None Full Exam - General 1994 Neurologic cranial nerves Overall: crainial nerves 2 - 12 grossly intact 01/19/2015 None Full Exam - General 1994 Psychiatric orientation/consciousness Overall: oriented to person, place and time 01/19/2015 None Full Exam - General 1994 Psychiatric mood and affect Overall: normal mood and affect 01/19/2015 None Full Exam - General 1994 Constitutional general appearance Development: well developed 10/20/2014 None Full Exam - General 1994 Constitutional general appearance Development: appears stated age 0710/20/2014 None Full Exam - General 1994 Constitutional general appearance Hygiene/Attention to Grooming: good hygiene 10/20/2014 None Full Exam - General 1994 Eyes conjunctiva /eyelids Overall: conjunctiva clear 10/20/2014 None Full Exam - General 1994 Eyes conjunctiva /eyelids Overall: cornea clear 10/20/2014 None Full Exam - General 1994 Eyes conjunctiva /eyelids Overall: eyelids normal 10/20/2014 None Full Exam - General 1994 Eyes pupils and irises Overall: pupils equal, round, reactive to light and accomodation 10/20/2014 None Full Exam - General 1994 Ears/Nose/Throat otoscopic exam Overall: external auditory canals clear 10/20/2014 None Full Exam - General 1994 Ears/Nose/Throat otoscopic exam Overall: tympanic membranes clear 10/20/2014 None Full Exam - General 1994 Ears/Nose/Throat lips/teeth/gingiva Overall: benign lips 10/20/2014 None Full Exam - General 1994 Ears/Nose/Throat lips/teeth/gingiva Overall: normal dentition 10/20/2014 None Full Exam - General 1994 Ears/Nose/Throat oral cavity/pharynx/larynx Overall: oral mucosa clear 10/20/2014 None Full Exam - General 1994 Ears/Nose/Throat oral cavity/pharynx/larynx Overall: oropharyngeal mucosa clear 10/20/2014 None Full Exam - General 1994 Ears/Nose/Throat oral cavity/pharynx/larynx Overall: hypopharynx benign 10/20/2014 None Full Exam - General 1994 Ears/Nose/Throat oral cavity/pharynx/larynx Overall: no masses 10/20/2014 None Full Exam - General 1994 Respiratory auscultation Overall: breath sounds clear bilaterally 10/20/2014 None Full Exam - General 1994 Respiratory respiratory effort/rhythm Overall: no retractions 10/20/2014 None Full Exam - General 1994 Respiratory respiratory effort/rhythm Overall: normal rate 10/20/2014 None Full Exam - General 1994 Cardiovascular extremities Overall: no clubbing 10/20/2014 None Full Exam - General 1994 Cardiovascular auscultation of heart Overall: regular rate 10/20/2014 None Full Exam - General 1994 Cardiovascular auscultation of heart Overall: normal heart sounds 10/20/2014 None Full Exam - General 1994 Abdomen abdominal exam Overall: no tenderness 10/20/2014 None Full Exam - General 1994 Abdomen abdominal exam Overall: normal bowel sounds 10/20/2014 None Full Exam - General 1994 Lymphatic neck nodes Overall: anterior cervical chain benign 10/20/2014 None Full Exam - General 1994 Lymphatic neck nodes Overall: posterior cervical chain benign 10/20/2014 None Full Exam - General 1994 Musculoskeletal spine, ribs and pelvis Overall: good posture 10/20/2014 None Full Exam - General 1994 Musculoskeletal head and neck Overall: head atraumatic 10/20/2014 None Full Exam - General 1994 Musculoskeletal head and neck Overall: cervical spine benign 10/20/2014 None Full Exam - General 1994 Integument inspection of skin Overall: few scattered moles, no gross abnormalities 10/20/2014 None Full Exam - General 1994 Neurologic deep tendon reflexes Overall: deep tendon reflexes intact 10/20/2014 None Full Exam - General 1994 Neurologic cranial nerves Overall: crainial nerves 2 - 12 grossly intact 10/20/2014 None Full Exam - General 1994 Psychiatric orientation/consciousness Overall: oriented to person, place and time 10/20/2014 None Full Exam - General 1994 Psychiatric mood and affect Overall: normal mood and affect 10/20/2014 None Full Exam - General 1994 Musculoskeletal spine, ribs and pelvis Sacroiliac joints: tender right sacroiliac joint 10/20/2014 None Full Exam - General 1994 Musculoskeletal spine, ribs and pelvis Sacroiliac joints: tender left sacroiliac joint 10/20/2014 None Full Exam - General 1994 Constitutional general appearance Development: well developed 09/16/2014 None Full Exam - General 1994 Constitutional general appearance Hygiene/Attention to Grooming: good hygiene 09/16/2014 None Full Exam - General 1994 Eyes conjunctiva /eyelids Overall: conjunctiva clear 09/16/2014 None Full Exam - General 1994 Eyes conjunctiva /eyelids Overall: cornea clear 09/16/2014 None Full Exam - General 1994 Eyes conjunctiva /eyelids Overall: eyelids normal 09/16/2014 None Full Exam - General 1994 Eyes pupils and irises Overall: pupils equal, round, reactive to light and accomodation 09/16/2014 None Full Exam - General 1994 Ears/Nose/Throat otoscopic exam Overall: external auditory canals clear 09/16/2014 None Full Exam - General 1994 Ears/Nose/Throat otoscopic exam Overall: tympanic membranes clear 09/16/2014 None Full Exam - General 1994 Ears/Nose/Throat lips/teeth/gingiva Overall: benign lips 09/16/2014 None Full Exam - General 1994 Ears/Nose/Throat lips/teeth/gingiva Overall: normal dentition 09/16/2014 None Full Exam - General 1994 Ears/Nose/Throat oral cavity/pharynx/larynx Overall: oral mucosa clear 09/16/2014 None Full Exam - General 1994 Ears/Nose/Throat oral cavity/pharynx/larynx Overall: oropharyngeal mucosa clear 09/16/2014 None Full Exam - General 1994 Ears/Nose/Throat oral cavity/pharynx/larynx Overall: hypopharynx benign 09/16/2014 None Full Exam - General 1994 Ears/Nose/Throat oral cavity/pharynx/larynx Overall: no masses 09/16/2014 None Full Exam - General 1994 Respiratory auscultation Overall: breath sounds clear bilaterally 09/16/2014 None Full Exam - General 1994 Respiratory respiratory effort/rhythm Overall: no retractions 09/16/2014 None Full Exam - General 1994 Respiratory respiratory effort/rhythm Overall: normal rate 09/16/2014 None Full Exam - General 1994 Cardiovascular extremities Overall: no clubbing 09/16/2014 None Full Exam - General 1994 Cardiovascular auscultation of heart Overall: regular rate 09/16/2014 None Full Exam - General 1994 Cardiovascular auscultation of heart Overall: normal heart sounds 09/16/2014 None Full Exam - General 1994 Abdomen abdominal exam Overall: no tenderness 09/16/2014 None Full Exam - General 1994 Abdomen abdominal exam Overall: normal bowel sounds 09/16/2014 None Full Exam - General 1994 Lymphatic neck nodes Overall: anterior cervical chain benign 09/16/2014 None Full Exam - General 1994 Lymphatic neck nodes Overall: posterior cervical chain benign 09/16/2014 None Full Exam - General 1994 Musculoskeletal spine, ribs and pelvis Overall: spine benign 09/16/2014 None Full Exam - General 1994 Musculoskeletal spine, ribs and pelvis Overall: sacroiliac joint benign 09/16/2014 None Full Exam - General 1994 Musculoskeletal spine, ribs and pelvis Overall: good posture 09/16/2014 None Full Exam - General 1994 Musculoskeletal head and neck Overall: head atraumatic 09/16/2014 None Full Exam - General 1994 Musculoskeletal head and neck Overall: cervical spine benign 09/16/2014 None Full Exam - General 1994 Integument inspection of skin Overall: few scattered moles, no gross abnormalities 09/16/2014 None Full Exam - General 1994 Neurologic deep tendon reflexes Overall: deep tendon reflexes intact 09/16/2014 None Full Exam - General 1994 Neurologic cranial nerves Overall: crainial nerves 2 - 12 grossly intact 09/16/2014 None Full Exam - General 1994 Psychiatric orientation/consciousness Overall: oriented to person, place and time 09/16/2014 None Full Exam - General 1994 Psychiatric mood and affect Overall: normal mood and affect 09/16/2014 None Full Exam - General 1994 Constitutional general appearance Development: appears older than stated age 0609/16/2014 None Full Exam - General 1994 Constitutional general appearance Hygiene/Attention to Grooming: normal grooming 09/16/2014 None Procedures Procedure Codes Date TOBACCO-USE COMMERCIAL ACCOUNT EXECUTIVE 3-[address]: 841927199 CPT-4: G0436 01/15/2017 ADMIN INFLUENZA VIRUS VAC CPT-4: G0008 01/15/2017 FLU VAC NO PRSV 4 COREY 3 YRS+ CPT-4: 94116 01/15/2017 PPPS, SUBSEQ VISIT CPT -4: G0439 09/28/2016 TOBACCO-USE COMMERCIAL ACCOUNT EXECUTIVE 3-[address]: 617866300 CPT-4: G0436 09/13/2016 TOBACCO-USE COMMERCIAL ACCOUNT EXECUTIVE 3-[address]: 692158602 CPT-4: G0436 06/12/2016 TOBACCO-USE COMMERCIAL ACCOUNT EXECUTIVE 3-[address]: 483804336 CPT-4: G0436 03/15/2016 ADMIN PNEUMOCOCCAL VACCINE SNOMED CT: 83985717 CPT-4: G0009 01/13/2016 Pneumococcal Polysaccharide Vaccine, 23-Valent, Ad CPT-4: 66560 01/13/2016 TOBACCO-USE COMMERCIAL ACCOUNT EXECUTIVE 3-[address]: 427451490 CPT-4: G0436 12/15/2015 ADMIN INFLUENZA VIRUS VAC CPT-4: G0008 12/15/2015 FLU VACC PRSV FREE INC ANTIG CPT-4: 06544 12/15/2015 TOBACCO-USE COMMERCIAL ACCOUNT EXECUTIVE 3-[address]: 460387796 CPT-4: G0436 09/14/2015 TOBACCO-USE COMMERCIAL ACCOUNT EXECUTIVE 3-[address]: 397573684 CPT-4: G0436 08/10/2015 TOBACCO-USE COMMERCIAL ACCOUNT EXECUTIVE 3-[address]: 059107213 CPT-4: G0436 07/13/2015 URINALYSIS NONAUTO W/O SCOPE CPT-4: 24495 03/01/2015 ADMIN INFLUENZA VIRUS VAC CPT-4: G0008 12/16/2014 FLU VACC 4 COREY 3 YRS PLUS IM Formatting Model/CDA Sections, Assigned to/Dulce Lepe SNOMED CT: 85288298 CPT-4: 63627Blunuir 12/16/2014 Vital Signs Date Vital 04/02/2017 Blood Pressure 1: 154/78 Code : 8480-6 BMI: 20.0 Code : 68232-5 Heart Rate 1 : 91 bpm Height: 5'5" SpO2: 98% Weight: 120 lbs 01/30/2017 Blood Pressure 1: 118/70 Code : 8480-6 BMI: 19.8 Code : 18052-0 Heart Rate 1 : 82 bpm Height: 5'5" SpO2: 97% Weight: 119 lbs 01/15/2017 Blood Pressure 1: 120/68 Code : 8480-6 BMI: 19.8 Code : 18350-6 Heart Rate 1 : 73 bpm Height: 5'5" SpO2: 95% Weight: 119 lbs 09/28/2016 BMI: 19.1 Code: 90366-7 Height: 5'5" Weight: 115 lbs 09/13/2016 Blood Pressure 1: 120/80 Code : 8480-6 BMI: 19.1 Code : 62242-3 Heart Rate 1 : 78 bpm Height: 5'5" SpO2: 97% Weight: 115 lbs 06/12/2016 Blood Pressure 1: 118/72 Code : 8480-6 BMI: 19.6 Code : 52329-9 Heart Rate 1 : 79 bpm Height: 5'5" SpO2: 95% Weight: 118 lbs 03/15/2016 Blood Pressure 1: 128/70 Code : 8480-6 BMI: 19.1 Code : 29211-7 Heart Rate 1 : 86 bpm Height: 5'5" SpO2: 97% Weight: 115 lbs 12/15/2015 Blood Pressure 1: 120/74 Code : 8480-6 BMI: 19.0 Code : 01971-0 Heart Rate 1 : 76 bpm Height: 5'5" SpO2: 98% Weight: 114 lbs 09/14/2015 Blood Pressure 1: 140/72 Code : 8480-6 BMI: 19.3 Code : 36492-2 Heart Rate 1 : 69 bpm Height: 5'5" SpO2: 96% Weight: 116 lbs 08/10/2015 Blood Pressure 1: 134/76 Code : 8480-6 BMI: 19.7 Code : 51333-8 Heart Rate 1 : 71 bpm Height: 5'5" SpO2: 98% Weight: 118 lbs 8 oz 07/13/2015 Blood Pressure 1: 138/78 Code : 8480-6 BMI: 19.1 Code : 86606-7 Heart Rate 1 : 80 bpm Height: 5'5" SpO2: 98% Weight: 115 lbs 06/27/2015 Blood Pressure 1: 130/62 Code : 8480-6 BMI: 19.0 Code : 67431-2 Heart Rate 1 : 86 bpm Height: 5'5" SpO2: 96% Weight: 114 lbs 04/20/2015 Blood Pressure 1: 138/78 Code : 8480-6 BMI: 19.6 Code : 36833-2 Heart Rate 1 : 77 bpm Height: 5'5" SpO2: 98% Weight: 117 lbs 8 oz 01/19/2015 Blood Pressure 1: 104/64 Code : 8480-6 BMI: 18.5 Code : 62038-3 Heart Rate 1 : 93 bpm Height: 5'5" SpO2: 97% Weight: 111 lbs 10/20/2014 Blood Pressure 1: 130/78 Code : 8480-6 BMI: 18.8 Code : 98317-6 Heart Rate 1 : 82 bpm Height: 5'5" SpO2: 97% Weight: 113 lbs 09/16/2014 Blood Pressure 1: 124/78 Code : 8480-6 BMI: 19.1 Code : 91076-9 Heart Rate 1 : 71 bpm Height: 5'5" Weight: 115 lbs Functional Status No Functional Status data History of Present Illness Symptom Name Status Result Effective Date Notes knee pain Location on the right 04/02/2017 None knee pain Quality acute 04/02/2017 None knee pain Quality constant 04/02/2017 None knee pain Onset and Resolution sudden in onset 04/02/2017 None knee pain Frequency of Episodes daily 04/02/2017 None knee pain Pertinent Findings swelling 04/02/2017 None knee pain Mechanism of injury fall onto knee 04/02/2017 None knee pain Onset of Symptom 3 days ago 04/02/2017 None low back pain Quality chronic 04/02/2017 None low back pain Quality constant 04/02/2017 None low back pain Quality worsening 04/02/2017 None low back pain Onset and Resolution ongoing 04/02/2017 None low back pain Onset of Symptom years ago 04/02/2017 --pain is worse after a fall 3 days ago low back pain Limitation on Activities moderately limits activities 04/02/2017 None low back pain Limitation on Activities is incapacitating 04/02/2017 None low back pain Frequency of Episodes increasing 04/02/2017 None low back pain Alleviating Factors medications 04/02/2017 None breast complaint Quality acute 04/02/2017 None breast complaint Quality pain 04/02/2017 None breast complaint Onset and Resolution sudden in onset 04/02/2017 None breast complaint Onset of Symptom 3 days ago 04/02/2017 None breast complaint Frequency of Episodes daily 04/02/2017 None breast complaint Significant Medical Conditions trauma 04/02/2017 (fall) constipation Quality chronic 01/30/2017 None constipation Quality intermittent 01/30/2017 None constipation Onset and Resolution ongoing 01/30/2017 None constipation Severity moderate 01/30/2017 None constipation Pertinent Findings Denies fever 01/30/2017 None back pain Quality chronic 01/15/2017 None back pain Quality constant 01/15/2017 None back pain Onset and Resolution ongoing 01/15/2017 None back pain Onset of Symptom years ago 01/15/2017 None back pain Limitation on Activities moderately limits activities 01/15/2017 None back pain Limitation on Activities is incapacitating 01/15/2017 None back pain Frequency of Episodes unchanged 01/15/2017 None back pain Alleviating Factors medication 01/15/2017 None vaccination against influenza Location deltoid-Lt 01/15/2017 None Annual Medicare Wellness Exam Alcohol Use does not drink any alcohol 09/28/2016 None Annual Medicare Wellness Exam Aspirin Use yes 09/28/2016 81mg daily Annual Medicare Wellness Exam Blood Glucose (self reported) don't know 09/28/2016 None Annual Medicare Wellness Exam Blood Pressure (self reported ) don't know 09/28/2016 None Annual Medicare Wellness Exam Cholesterol (self reported) don't know 09/28/2016 None Annual Medicare Wellness Exam Depression (last 6 months) most of the time 09/28/2016 None Annual Medicare Wellness Exam Depression or Hopelessness almost never 09/28/2016 None Annual Medicare Wellness Exam Describe Your Health poor 09/28/2016 None Annual Medicare Wellness Exam Exercise Habits does not exercise 09/28/2016 None Annual Medicare Wellness Exam Handling Stress often has problems coping 09/28/2016 None Annual Medicare Wellness Exam Hemaglobin A-1C (self reported ) don't know 09/28/2016 None Annual Medicare Wellness Exam Hours of Sleep 3-4 09/28/2016 None Annual Medicare Wellness Exam Interaction with Friends yes 09/28/2016 None Annual Medicare Wellness Exam Interests & Pleasure almost never 09/28/2016 None Annual Medicare Wellness Exam Life Satisfaction satisfied 09/28/2016 None Annual Medicare Wellness Exam Motor Vehicle Safety always fastens seat belt: n 09/28/2016 None Annual Medicare Wellness Exam Nutrition servings of vegetables / fruit per day: few 09/28/2016 None Annual Medicare Wellness Exam Smoking and Tobacco Use cigarette smoker 09/28/2016 None Annual Medicare Wellness Exam Social & Emotional Support usually 09/28/2016 None Annual Medicare Wellness Exam Stress most of the time 09/28/2016 None Annual Medicare Wellness Exam Sun Exposure protects skin when outdoors: n 09/28/2016 None back pain Quality chronic 09/13/2016 None back pain Quality constant 09/13/2016 None back pain Onset and Resolution ongoing 09/13/2016 None back pain Onset of Symptom years ago 09/13/2016 None back pain Limitation on Activities moderately limits activities 09/13/2016 None back pain Limitation on Activities is incapacitating 09/13/2016 None back pain Frequency of Episodes unchanged 09/13/2016 None back pain Alleviating Factors medication 09/13/2016 None back pain Quality chronic 06/12/2016 None back pain Quality constant 06/12/2016 None back pain Onset and Resolution ongoing 06/12/2016 None back pain Onset of Symptom years ago 06/12/2016 None back pain Limitation on Activities moderately limits activities 06/12/2016 None back pain Limitation on Activities is incapacitating 06/12/2016 None back pain Frequency of Episodes unchanged 06/12/2016 None back pain Alleviating Factors medication 06/12/2016 None diarrhea Quality intermittent 06/12/2016 None diarrhea Quality loose 06/12/2016 None diarrhea Onset and Resolution ongoing 06/12/2016 None diarrhea Onset of Symptom months ago 06/12/2016 None diarrhea Exacerbating Factors medication 06/12/2016 None fatigue Onset of Symptom 2 months ago 06/12/2016 None fatigue Onset and Resolution ongoing 06/12/2016 None fatigue Alleviating Factors rest 06/12/2016 None back pain Quality chronic 03/15/2016 None back pain Quality constant 03/15/2016 None back pain Onset and Resolution ongoing 03/15/2016 None back pain Onset of Symptom years ago 03/15/2016 None back pain Limitation on Activities moderately limits activities 03/15/2016 None back pain Limitation on Activities is incapacitating 03/15/2016 None back pain Alleviating Factors medication 03/15/2016 None diarrhea Quality intermittent 03/15/2016 None diarrhea Quality loose 03/15/2016 None diarrhea Onset and Resolution ongoing 03/15/2016 None diarrhea Onset of Symptom months ago 03/15/2016 None diarrhea Exacerbating Factors medication 03/15/2016 None back pain Frequency of Episodes unchanged 03/15/2016 None back pain Quality chronic 12/15/2015 None back pain Quality constant 12/15/2015 None back pain Onset and Resolution ongoing 12/15/2015 None back pain Onset of Symptom years ago 12/15/2015 None back pain Limitation on Activities moderately limits activities 12/15/2015 None back pain Limitation on Activities is incapacitating 12/15/2015 None back pain Alleviating Factors medication 12/15/2015 None diarrhea Quality intermittent 12/15/2015 None diarrhea Quality loose 12/15/2015 None diarrhea Onset and Resolution ongoing 12/15/2015 None diarrhea Onset of Symptom months ago 12/15/2015 None diarrhea Exacerbating Factors medication 12/15/2015 None abdominal pain Quality aching 09/14/2015 None abdominal pain Quality intermittent 09/14/2015 None abdominal pain Onset of Symptom 1 years ago 09/14/2015 None abdominal pain Limitation on Activities moderately limits activities 09/14/2015 None abdominal pain Pertinent Findings Denies nausea 09/14/2015 None abdominal pain Pertinent Findings Denies vomiting 09/14/2015 None back pain Quality chronic 09/14/2015 None back pain Quality constant 09/14/2015 None back pain Quality worsening 09/14/2015 None back pain Onset and Resolution ongoing 09/14/2015 None back pain Onset of Symptom years ago 09/14/2015 None back pain Limitation on Activities moderately limits activities 09/14/2015 None back pain Limitation on Activities is incapacitating 09/14/2015 None back pain Alleviating Factors medication 09/14/2015 None abdominal pain Location in the LLQ 09/14/2015 None abdominal pain Onset and Resolution ongoing 09/14/2015 None diarrhea Quality intermittent 09/14/2015 None diarrhea Quality loose 09/14/2015 None diarrhea Onset of Symptom 1 months ago 09/14/2015 None diarrhea Onset and Resolution ongoing 09/14/2015 None diarrhea Exacerbating Factors medication 09/14/2015 None abdominal pain Location in the LUQ 08/10/2015 None abdominal pain Quality aching 08/10/2015 None abdominal pain Onset and Resolution gradual in onset 08/10/2015 None abdominal pain Onset of Symptom 1 years ago 08/10/2015 None abdominal pain Limitation on Activities moderately limits activities 08/10/2015 None abdominal pain Frequency of Episodes hourly 08/10/2015 None abdominal pain Timing of Episodes all day long 08/10/2015 None abdominal pain Pertinent Findings nausea 08/10/2015 None abdominal pain Pertinent Findings Denies vomiting 08/10/2015 None back pain Quality chronic 08/10/2015 None back pain Quality constant 08/10/2015 None back pain Onset and Resolution ongoing 08/10/2015 None back pain Onset of Symptom years ago 08/10/2015 None back pain Limitation on Activities moderately limits activities 08/10/2015 None back pain Limitation on Activities is incapacitating 08/10/2015 None back pain Alleviating Factors medication 08/10/2015 None abdominal pain Quality intermittent 08/10/2015 None back pain Quality worsening 08/10/2015 None abdominal pain Quality aching 07/13/2015 None abdominal pain Quality constant 07/13/2015 None abdominal pain Quality sharp 07/13/2015 None abdominal pain Onset and Resolution gradual in onset 07/13/2015 None abdominal pain Onset of Symptom 1 years ago 07/13/2015 None abdominal pain Limitation on Activities moderately limits activities 07/13/2015 None abdominal pain Location in the LUQ 07/13/2015 None abdominal pain Quality worsening 07/13/2015 None abdominal pain Timing of Episodes all day long 07/13/2015 None abdominal pain Frequency of Episodes hourly 07/13/2015 None abdominal pain Pertinent Findings nausea 07/13/2015 None abdominal pain Pertinent Findings Denies vomiting 07/13/2015 None back pain Quality chronic 07/13/2015 None back pain Quality constant 07/13/2015 None back pain Onset and Resolution ongoing 07/13/2015 None back pain Onset of Symptom _ years ago 07/13/2015 None back pain Limitation on Activities moderately limits activities 07/13/2015 None back pain Limitation on Activities is incapacitating 07/13/2015 None back pain Alleviating Factors medication 07/13/2015 None menopausal symptoms Quality hot flashes 07/13/2015 None menopausal symptoms Onset of Symptom 1 months ago 07/13/2015 None menopausal symptoms Quality intermittent 07/13/2015 None abdominal pain Location diffusely 06/27/2015 None abdominal pain Quality sharp 06/27/2015 None abdominal pain Quality intermittent 06/27/2015 None abdominal pain Onset and Resolution gradual in onset 06/27/2015 None abdominal pain Onset of Symptom 1 years ago 06/27/2015 None abdominal pain Limitation on Activities moderately limits activities 06/27/2015 None abdominal pain Frequency of Episodes daily 06/27/2015 None abdominal pain Timing of Episodes after meals 06/27/2015 None abdominal pain Quality aching 06/27/2015 None abdominal pain Quality constant 06/27/2015 None abdominal pain Location in the epigastric area 06/27/2015 None back pain Quality chronic 04/20/2015 None back pain Onset and Resolution ongoing 04/20/2015 None back pain Onset of Symptom _ years ago 04/20/2015 None back pain Limitation on Activities moderately limits activities 04/20/2015 None back pain Limitation on Activities is incapacitating 04/20/2015 None back pain Quality constant 04/20/2015 None back pain Alleviating Factors medication 04/20/2015 None dysuria Onset of Symptom 2 weeks ago 01/19/2015 None dysuria Pertinent Findings back pain 01/19/2015 None dysuria Pertinent Findings bladder pain 01/19/2015 None dysuria Pertinent Findings Denies fever 01/19/2015 None dysuria Pertinent Findings Denies urinary urgency 01/19/2015 None dysuria Onset and Resolution ongoing 01/19/2015 None dysuria Quality aching 01/19/2015 None dysuria Quality burning 01/19/2015 None back pain Location diffusely 10/20/2014 None back pain Quality aching 10/20/2014 None back pain Onset and Resolution ongoing 10/20/2014 None back pain Severity severe 10/20/2014 None cholesterol followup Onset and Resolution ongoing 10/20/2014 None cholesterol followup Onset of Symptom during adulthood 10/20/2014 None cholesterol followup Frequency of Episodes unchanged 10/20/2014 None cholesterol followup Triggers no known associated factors 10/20/2014 None cholesterol followup Alleviating Factors medication 10/20/2014 None cholesterol followup Quality chronic 10/20/2014 None cholesterol followup Alleviating Factors medication 09/16/2014 None cholesterol followup Frequency of Episodes unchanged 09/16/2014 None cholesterol followup Onset and Resolution ongoing 09/16/2014 None cholesterol followup Onset of Symptom during adulthood 09/16/2014 None cholesterol followup Quality chronic 09/16/2014 None cholesterol followup Triggers no known associated factors 09/16/2014 None back pain Location diffusely 09/16/2014 None back pain Quality aching 09/16/2014 None back pain Onset and Resolution ongoing 09/16/2014 None back pain Severity severe 09/16/2014 None Advance Directives No Advance Directive data Encounters Encounter Performer Location Codes Date EST. PATIENT, LEVEL III Diagnosis: Pain in right knee[ICD10: M25.561] Diagnosis: Low back pain[ICD10: M54.5] Radha Felipe MD, [facility] CPT-4 : 32148 04/02/2017 [id number] EST. PATIENT, LEVEL IV Diagnosis: Gastro-esophageal reflux disease without esophagitis[ICD10: K21.9] Diagnosis: Drug induced constipation[ICD10: K59.03] Radha Felipe MD, [facility] CPT-4: 57910 01/30/2017 ([id number]) 24092 EST. PATIENT, LEVEL IV Diagnosis: Encounter for immunization[ICD10: Z23] Diagnosis: Low back pain[ICD10: M54.5] Diagnosis: Chronic pain syndrome[ICD10: G89.4] Diagnosis: Other emphysema[ICD10: J43.8] Maryellen Felipe MD, [facility] CPT- 4: 33546 01/15/2017 ([id number]) 81886 EST. PATIENT, LEVEL IV Diagnosis: Drug induced constipation[ICD10: K59.03] Diagnosis: Chronic pain syndrome[ICD10: G89.4] Diagnosis: Other emphysema[ICD10: J43.8] Diagnosis: Muscle spasm of back[ICD10: M62.830] Diagnosis: Low back pain[ICD10: M54.5] Maryellen Felipe MD, [facility] CPT- 4: 93357 09/13/2016 ([id number]) 21048 EST. PATIENT, LEVEL IV Diagnosis: Chronic pain syndrome[ICD10: G89.4] Diagnosis: Chronic obstructive pulmonary disease, unspecified[ICD10: J44.9] Diagnosis: Tobacco use[ICD10: Z72.0] Diagnosis: Functional diarrhea[ICD10: K59.1] Maryellen Felipe MD, [facility] CPT-4: 73172 06/12/2016 ([id number]) 72795 EST. PATIENT, LEVEL IV Diagnosis: Chronic pain syndrome[ICD10: G89.4] Diagnosis: Functional diarrhea[ICD10: K59.1] Diagnosis: Tobacco use[ICD10: Z72.0] Maryellen Felipe MD, [facility] CPT-4: 46493 03/15/2016 ([id number]) 53553 EST. PATIENT, LEVEL IV Diagnosis: Encounter for immunization[ICD10: Z23] Diagnosis: Chronic pain syndrome[ICD10: G89.4] Diagnosis: Epigastric pain[ICD10: R10.13] Maryellen Felipe MD, [facility] CPT- 4: 28352 12/15/2015 ([id number]) 13336 EST. PATIENT, LEVEL III Diagnosis: Chronic pain syndrome[ICD10: G89.4] Diagnosis: Gastro-esophageal reflux disease without esophagitis[ICD10: K21.9] Diagnosis: Epigastric pain[ICD10: R10.13] Diagnosis: Tobacco use[ICD10: Z72.0] Maryellen Felipe MD [facility] CPT-4: 12436 09/14/2015 ([id number]) 58714 EST. PATIENT, LEVEL III Diagnosis: Chronic pain syndrome[ICD10: G89.4] Diagnosis: Gastro-esophageal reflux disease without esophagitis[ICD10: K21.9] Diagnosis: Tobacco use[ICD10: Z72.0] Maryellen Felipe MD, [facility] CPT-4: 89911 08/10/2015 ([id number]) 70384 EST. PATIENT, LEVEL IV Diagnosis: Gastro-esophageal reflux disease without esophagitis[ICD10: K21.9] Diagnosis: Chronic obstructive pulmonary disease, unspecified[ICD10: J44.9] Diagnosis: Chronic pain syndrome[ICD10: G89.4] Diagnosis: Tobacco use[ICD10: Z72.0] Maryellen Felipe MD, [facility] CPT-4: 67265 07/13/2015 12704 EST. PATIENT, LEVEL IV Diagnosis: Epigastric pain[ICD10: R10.13] Diagnosis: Gastro-esophageal reflux disease without esophagitis[ICD10: K21.9] Diagnosis: Chronic pain syndrome[ICD10: G89.4] Diagnosis: Chronic obstructive pulmonary disease, unspecified[ICD10: J44.9] Radha Felipe MD, [facility] CPT-4: 94859 06/27/2015 ([id number]) 52039 EST. PATIENT, LEVEL III Diagnosis: Chronic pain syndrome[ICD10: G89.4] Diagnosis: Chronic obstructive pulmonary disease, unspecified[ICD10: J44.9] Maryellen Felipe MD, [facility] CPT-4: 17702 04/20/2015 ([id number]) 72854 EST. PATIENT, LEVEL III Diagnosis: Dysuria[ICD10: R30.0] Maryellen Felipe MD, [facility] CPT-4: 79503 01/19/2015 ([id number]) 25102 EST. PATIENT, LEVEL IV Diagnosis: CHRONIC AIRWAY OBST NEC[ICD9: 496] Diagnosis: CHRONIC PAIN SYNDROME[ICD9: 338.4] Diagnosis: ESOPHAGEAL REFLUX[ICD9: 530.81] Diagnosis: Muscle spasm[ICD9: 728.85] Maryellen Felipe MD, [facility] CPT- 4: 66026 10/20/2014 ([id number]) OFFICE VISIT, NEW - LEVEL 4 Diagnosis: HYPERLIPIDEMIA[ICD9: 272.4] Diagnosis: CHRONIC PAIN SYNDROME[ICD9: 338.4] Diagnosis: CHRONIC AIRWAY OBST NEC[ICD9: 496] Maryellen Felipe MD, [facility] CPT-4: 56514 09/16/2014 Plan of Care Planned Activity Notes Codes Status Date Care Plan: X-RAY EXAM OF KNEE 3 LOINC : 43220-9 Pending 04/25/2017 Care Plan: X-RAY EXAM L-S SPINE 2/3 VWS LOINC : [id number] Pending 04/25/2017 Visit Plan: Low back pain- post fall - will order x-ray - will refer or treat as indicated - The pt is to use prn antiinflammatories to manage acute pain. The patient is to call the office if the pain is worsening or does not improve. Right knee pain - post fall - Will order x-ray and refer or treat as indicated - pt is to use RICE- Rest, Ice, Compression, Elevation - The pt is to use prn antiinflammatories to manage acute pain. The patient is to call the office if the pain is worsening or does not improve. 04/02/2017 Appointment: Radha Esteban WPtel: [address] [place], [place] [id number] [place] (15 min) Moderate 04/02/2017 Patient Education: Patient Medication Summary Completed 04/02/2017 Care Plan: Referral Order SNOMED-CT : [id number] Pending 02/04/2017 Visit Plan: Ongoing intermittent abdominal pain - pt has seen Dr. Suazo for scopes in the past - will refer back to Dr. Suazo for evaluation - will refer to GI specialist if indicated. Esophageal Reflux - the patient has been counseled against excessive intake of caffeine, spicy foods, peppermint, and cinnamon - all of which can exacerbate esophageal reflux. The patient is to take medications as prescribed and call the office if the symptoms are not improving. Constipation - uncontrolled - I have discussed with the patient the need for adequate fiber and water intake to facilitate soft, easily passed stools. The pt noted understanding of our conversation. I have given the patient a recipe for "power pudding" - equal parts, bran flakes, prune juice, and apple sauce. The pt is to call if symptoms not improved on this regimen. 01/30/2017 Appointment: [facility] [phone] [facility] (30 min) Complex 01/30/2017 Patient Education: Patient Medication Summary Completed 01/30/2017 Patient Education: Smoking and Tobacco Addiction Completed 01/30/2017 Visit Plan: Chronic Pain Syndrome - pt has chronic pain - has been maintained on current medications, has not sought out other medications , only uses PRN pain medications as directed, and understands the consequences of over-medication. Chronic Drug induced constipation - continue with Amitiza. COPD/Emphysema - continue with current treatment - again recommended pt to stop smoking. 01/15/2017 Appointment: [facility] [phone] [facility] [place] (15 min) Moderate 01/15/2017 Patient Education: Patient Medication Summary Completed 01/15/2017 Patient Education: Smoking and Tobacco Addiction Completed 01/15/2017 Visit Plan: Medicare Exam - today we discussed the patients past history, immunizations, preventative exams/evaluations - colonoscopy, fecal occult blood testing, routine labs for renal function, glucose, cholesterol, osteoporosis evaluations, cardiovascular testing and cancer screenings. We have also discussed mental health and the signs/symptoms of depression. The patient was advised of home safety evaluations and the need to make sure that as the aging process continues, we need to be aware of different ways to make the home a safer place to reside. The patient has also been counseled that exercise is necessary - and of utmost importance as we age to help decrease fall risk and to maintain independence in the home. Today we discussed the need for the patient to create paperwork for Advanced directives as well as for the patient to provide this office with a copy of her DOPA paperwork for health care surrogate. 09/28/2016 Appointment: Radha Esteban WPtel: [facility] [facility] - Annual Wellness Visit 09/28/2016 Patient Education: Patient Medication Summary Completed 09/28/2016 Patient Education: Smoking and Tobacco Addiction Completed 09/28/2016 Visit Plan: Back pain - referral to [facility] for therapy / back pain, water therapy for strengthening. Chronic Pain Syndrome - pt has chronic pain - has been maintained on current medications, has not sought out other medications, only uses PRN pain medications as directed, and understands the consequences of over-medication. Pain medication causing constipation - samples of movantik given to patient - recommended pt to start, call if this helps ans we will give her a prescription for the movantik COPD/Emphysema - continue with proair. 09/13/2016 Appointment: Maryellen Felipe WPtel: [facility] (15 min) Moderate 09/13/2016 Patient Education: Patient Medication Summary Completed 09/13/2016 Patient Education: Smoking and Tobacco Addiction Completed 09/13/2016 Visit Plan: Chronic Pain Syndrome - pt has chronic pain - has been maintained on current medications, has not sought out other medications , only uses PRN pain medications as directed, and understands the consequences of over-medication. Diarrhea - recommended pt to use amitiza as directed. Tobacco abuse - pt not interested in stopping smoking. COPD - continue with current treatment - again recommended pt to stop smoking. 06/12/2016 Appointment: Maryellen Felipe WPtel: [facility] (15 min) Moderate 06/12/2016 Appointment: Maryellen Felipe WPtel: [phone] [facility] (15 min) Moderate 06/12/2016 Patient Education: Patient Medication Summary Completed 06/12/2016 Patient Education: Smoking and Tobacco Addiction Completed 06/12/2016 Visit Plan: Chronic Pain Syndrome - pt has chronic pain - has been maintained on current medications, has not sought out other medications , only uses PRN pain medications as directed, and understands the consequences of over-medication. Diarrhea - recommended pt to use amitiza as directed. Tobacco abuse - pt not interested in stopping smoking. 03/15/2016 Appointment: Maryellen Felipe WPtel: [phone] [facility] [place] (15 min) Moderate 03/15/2016 Patient Education: Patient Medication Summary Completed 03/15/2016 Patient Education: Smoking and Tobacco Addiction Completed 03/15/2016 Appointment: Injection 01/13/2016 Patient Education: Patient Medication Summary Completed 01/13/2016 Patient Education: Smoking and Tobacco Addiction Completed 01/13/2016 Visit Plan: Chronic Pain Syndrome - pt has chronic pain - has been maintained on current medications, has not sought out other medications , only uses PRN pain medications as directed, and understands the consequences of over-medication. Diarrhea - try amitriptyline - see if GI symptoms improves. Tobacco abuse - pt not interested in stopping smoking. 12/15/2015 Appointment: Maryellen Felipe WPtel: [phone] [facility] [place] (15 min) Moderate 12/15/2015 Patient Education: Patient Medication Summary Completed 12/15/2015 Patient Education: Smoking and Tobacco Addiction Completed 12/15/2015 Visit Plan: Chronic Pain Syndrome - pt has chronic pain - has been maintained on current medications, has not sought out other medications , only uses PRN pain medications as directed, and understands the consequences of over-medication. Esophageal reflux, abdominal discomfort - diarrhea - recommended eval for colonoscopy. Tobacco abuse - pt not interested in stopping smoking. 09/14/2015 Appointment: Maryellen Felipe WPtel: [phone] [facility] [place] (15 min) Moderate 09/14/2015 Patient Education: Patient Medication Summary Completed 09/14/2015 Patient Education: Smoking and Tobacco Addiction Completed 09/14/2015 Visit Plan: Esophageal Reflux - the patient has been counseled against excessive intake of caffeine, spicy foods, peppermint, and cinnamon - all of which can exacerbate esophageal reflux. The patient is to take medications as prescribed and call the office if the symptoms are not improving. Chronic pain - not well controlled - increase MS contin to 60mg bid and continue with current dose of hydrocodone until pt's pain is optimally controlled on the long-acting medication Tobacco abuse - recommended pt to stop smoking 08/10/2015 Patient Education: Patient Medication Summary Completed 08/10/2015 Patient Education: Smoking and Tobacco Addiction Completed 08/10/2015 Visit Plan: Esophageal Reflux - the patient has been counseled against excessive intake of caffeine, spicy foods, peppermint, and cinnamon - all of which can exacerbate esophageal reflux. The patient is to take medications as prescribed and call the office if the symptoms are not improving. Chronic Back pain - the patient was counseled to always first attempt to use modalities other than pain medication for alleviation of the muscle spasms and pain. The patient was also encouraged to continue with exercises as previously directed. Pt is to use pain medication as directed. If pain medications are used inappropriately or early refills are requested, the patient understands that is a breech of trust/contract and could result in the patient's termination from this medical practice. Pt to have new rx for ms contin - to start for better pain control and hopefully she will need less PRN pain medication as she will have more optimal pain control. 07/13/2015 Appointment: Maryellen Felipe WPtel: [facility] (15 min) Moderate 07/13/2015 Patient Education: Patient Medication Summary Completed 07/13/2015 Patient Education: Smoking and Tobacco Addiction Completed 07/13/2015 Referral: Edgardo Guerrero [facility]:[phone] [facility] Referral Completed 06/29/2015 Visit Plan: Esophageal Reflux - tender in the epigastric area, with more acute pain after eating. Pt states that it does not matter what foods she eats, that it is always tender. Pt states that it has been going on for about a year, but that it has been getting worse recently. States that she gets nauseous because of the pain, but denies vomiting, bloody emesis, denies diarrhea, dark tarry stools or blood in her stools. Will send RX. Will refer for possible EGD. The patient has been counseled against excessive intake of caffeine, spicy foods, peppermint, and cinnamon - all of which can exacerbate esophageal reflux. The patient is to take medications as prescribed and call the office if the symptoms are not improving. Constipation - uncontrolled - I have discussed with the patient the need for adequate fiber and water intake to facilitate soft, easily passed stools. The pt noted understanding of our conversation. I have given the patient a recipe for "power pudding" - equal parts, bran flakes, prune juice, and apple sauce. The pt is to call if symptoms not improved on this regimen. 06/27/2015 Appointment: (15 min) Moderate 06/27/2015 Patient Education: Patient Medication Summary Completed 06/27/2015 Patient Education: Smoking and Tobacco Addiction Completed 06/27/2015 Care Plan: Referral Order SNOMED-CT : [id number] Ordered 06/27/2015 Visit Plan: COPD - chronic problem for this patient. We have reviewed chronic treatment strategy, symptom control, and plans for acute exacerbations. No changes today to the current treatment plan as the patient is stable, monitor for acute changes. Chronic Pain Syndrome - pt has chronic pain - has been maintained on current medications, has not sought out other medications, only uses PRN pain medications as directed, and understands the consequences of over-medication. 04/20/2015 Patient Education: Patient Medication Summary Completed 04/20/2015 Appointment: Lab Draw 03/01/2015 Patient Education: Patient Medication Summary Completed 03/01/2015 Visit Plan: UTI - pt with positive urinalysis - culture sent if appropriate. Antibiotic electronically prescribed to pt's pharmacy of choice. Pt to call if symptoms do not improve. 01/19/2015 Appointment: Maryellen Felipe WPtel: [facility] (15 min) Moderate 01/19/2015 Patient Education: Patient Medication Summary Completed 01/19/2015 Appointment: Injection 12/16/2014 Patient Education: Patient Medication Summary Completed 12/16/2014 Visit Plan: Chronic Pain Syndrome - pt has chronic pain/ Chronic back pain- has been maintained on current medications, has not sought out other medications, only uses PRN pain medications as directed, and understands the consequences of over-medication. Esophageal Reflux - the patient has been counseled against excessive intake of caffeine, spicy foods, peppermint, and cinnamon - all of which can exacerbate esophageal reflux. The patient is to take medications as prescribed and call the office if the symptoms are not improving. 10/20/2014 Appointment: Maryellen Felipe [facility]Ptel[facility] [phone] [facility] (15 min) Moderate 10/20/2014 Patient Education: Patient Medication Summary Completed 10/20/2014 Visit Plan: Hyperlipidemia - pt has been counseled about appropriate diet, exercise, and need for low fat food choices. I have discussed the need for the patient to take medications as prescribed. If the patient has negative side effects from the medication, they are to CALL the office and not abruptly discontinue the medication without discussion with a practitioner in the office. We will check labs in 3-6 months for follow up on the patient's chronic medical problem and to assure normal liver response to medications. Chronic Pain Syndrome - pt has chronic pain - has been maintained on current medications, has not sought out other medications, only uses PRN pain medications as directed, and understands the consequences of over-medication. start on ms contin 15mg twice daily - use the hydrocodone in between use of the ms contin in attempt to have control of pain - record how much pain medication is needed for pain control and bring the average to the next office visit=we will then attempt to get the ms contin up to a dose that can be handled. COPD - referral to [facility] - see studies done in office for full details - pt needs oxygen study at home at night - pt reports that she is fatigued, falling, weak, worse in the evening and at night. 09/16/2014 Appointment: Maryellen Felipe [facility]Ptel[facility] [phone] [facility] [place] (S) New Patient 09/16/2014 Patient Education: Patient Medication Summary Completed 09/16/2014 Referral: Edgardo Guerrero HPtel:[phone] [facility] [place] Referral Initiated Referral: Yogesh Suazo [address] [facility] Referral Relationship Instructions Comment take the antibiotics as directed and take a PROBIOTIC like Munchkin Fune or FieldAware while on the antibiotic. . UTI - pt with positive urinalysis - culture sent if appropriate. Antibiotic electronically prescribed to pt's pharmacy of choice. Pt to call if symptoms do not improve. . COPD - chronic problem for this patient. We have reviewed chronic treatment strategy, symptom control, and plans for acute exacerbations. No changes today to the current treatment plan as the patient is stable, monitor for acute changes. Chronic Pain Syndrome - pt has chronic pain - has been maintained on current medications, has not sought out other medications, only uses PRN pain medications as directed, and understands the consequences of over-medication. . Chronic Pain Syndrome - pt has chronic pain/Chronic back pain- has been maintained on current medications, has not sought out other medications, only uses PRN pain medications as directed, and understands the consequences of over-medication. Esophageal Reflux - the patient has been counseled against excessive intake of caffeine, spicy foods, peppermint, and cinnamon - all of which can exacerbate esophageal reflux. The patient is to take medications as prescribed and call the office if the symptoms are not improving. . Medicare Exam - today we discussed the patients past history, immunizations, preventative exams/evaluations - colonoscopy, fecal occult blood testing, routine labs for renal function, glucose, cholesterol, osteoporosis evaluations, cardiovascular testing and cancer screenings. We have also discussed mental health and the signs/symptoms of depression. The patient was advised of home safety evaluations and the need to make sure that as the aging process continues, we need to be aware of different ways to make the home a safer place to reside. The patient has also been counseled that exercise is necessary - and of utmost importance as we age to help decrease fall risk and to maintain independence in the home. Today we discussed the need for the patient to create paperwork for Advanced directives as well as for the patient to provide this office with a copy of her DOPA paperwork for health care surrogate. . Chronic Pain Syndrome - pt has chronic pain - has been maintained on current medications, has not sought out other medications, only uses PRN pain medications as directed, and understands the consequences of over- medication. Esophageal reflux, abdominal discomfort - diarrhea - recommended eval for colonoscopy. Tobacco abuse - pt not interested in stopping smoking. . Low back pain- post fall - will order x-ray - will refer or treat as indicated - The pt is to use prn antiinflammatories to manage acute pain. The patient is to call the office if the pain is worsening or does not improve. Right knee pain - post fall - Will order x-ray and refer or treat as indicated - pt is to use RICE- Rest, Ice, Compression, Elevation - The pt is to use prn antiinflammatories to manage acute pain. The patient is to call the office if the pain is worsening or does not improve. . Esophageal Reflux - the patient has been counseled against excessive intake of caffeine, spicy foods, peppermint, and cinnamon - all of which can exacerbate esophageal reflux. The patient is to take medications as prescribed and call the office if the symptoms are not improving. Chronic Back pain - the patient was counseled to always first attempt to use modalities other than pain medication for alleviation of the muscle spasms and pain. The patient was also encouraged to continue with exercises as previously directed. Pt is to use pain medication as directed. If pain medications are used inappropriately or early refills are requested, the patient understands that is a breech of trust/contract and could result in the patient's termination from this medical practice. Pt to have new rx for ms contin - to start for better pain control and hopefully she will need less PRN pain medication as she will have more optimal pain control. . Chronic Pain Syndrome - pt has chronic pain - has been maintained on current medications, has not sought out other medications, only uses PRN pain medications as directed, and understands the consequences of over- medication. Chronic Drug induced constipation - continue with Amitiza. COPD/Emphysema - continue with current treatment - again recommended pt to stop smoking. . Chronic Pain Syndrome - pt has chronic pain - has been maintained on current medications, has not sought out other medications, only uses PRN pain medications as directed, and understands the consequences of over- medication. Diarrhea - recommended pt to use amitiza as directed. Tobacco abuse - pt not interested in stopping smoking. COPD - continue with current treatment - again recommended pt to stop smoking. Stop omeprazole and the lansoprazole. Start the protonix ( pantoprazole). Will give you the carafate to take 4 times a day. Before meals and at bedtime. . Esophageal Reflux - tender in the epigastric area, with more acute pain after eating. Pt states that it does not matter what foods she eats, that it is always tender. Pt states that it has been going on for about a year, but that it has been getting worse recently. States that she gets nauseous because of the pain, but denies vomiting, bloody emesis, denies diarrhea, dark tarry stools or blood in her stools. Will send RX. Will refer for possible EGD. The patient has been counseled against excessive intake of caffeine, spicy foods, peppermint, and cinnamon - all of which can exacerbate esophageal reflux. The patient is to take medications as prescribed and call the office if the symptoms are not improving. Constipation - uncontrolled - I have discussed with the patient the need for adequate fiber and water intake to facilitate soft, easily passed stools. The pt noted understanding of our conversation. I have given the patient a recipe for "power pudding" - equal parts, bran flakes, prune juice, and apple sauce. The pt is to call if symptoms not improved on this regimen. . Esophageal Reflux - the patient has been counseled against excessive intake of caffeine, spicy foods, peppermint, and cinnamon - all of which can exacerbate esophageal reflux. The patient is to take medications as prescribed and call the office if the symptoms are not improving. Chronic pain - not well controlled - increase MS contin to 60mg bid and continue with current dose of hydrocodone until pt's pain is optimally controlled on the long-acting medication Tobacco abuse - recommended pt to stop smoking movantik 25mg daily - call if this is helping. . Back pain - referral to [facility] for therapy /back pain, water therapy for strengthening. Chronic Pain Syndrome - pt has chronic pain - has been maintained on current medications, has not sought out other medications, only uses PRN pain medications as directed, and understands the consequences of over-medication. Pain medication causing constipation - samples of movantik given to patient - recommended pt to start, call if this helps ans we will give her a prescription for the movantik COPD/Emphysema - continue with proair. stop omeprazole, start dexilant daily Appointment with Dany (Dr. Suazo's) [employer] for evaluation before scopes - on 02/05 at 10:15 . Ongoing intermittent abdominal pain - pt has seen Dr. Suazo for scopes in the past - will refer back to Dr. Suazo for evaluation - will refer to GI specialist if indicated. Esophageal Reflux - the patient has been counseled against excessive intake of caffeine, spicy foods, peppermint, and cinnamon - all of which can exacerbate esophageal reflux. The patient is to take medications as prescribed and call the office if the symptoms are not improving. Constipation - uncontrolled - I have discussed with the patient the need for adequate fiber and water intake to facilitate soft, easily passed stools. The pt noted understanding of our conversation. I have given the patient a recipe for "power pudding" - equal parts, bran flakes, prune juice, and apple sauce. The pt is to call if symptoms not improved on this regimen. . Chronic Pain Syndrome - pt has chronic pain - has been maintained on current medications, has not sought out other medications, only uses PRN pain medications as directed, and understands the consequences of over- medication. Diarrhea - recommended pt to use amitiza as directed. Tobacco abuse - pt not interested in stopping smoking. . Chronic Pain Syndrome - pt has chronic pain - has been maintained on current medications, has not sought out other medications, only uses PRN pain medications as directed, and understands the consequences of over- medication. Diarrhea - try amitriptyline - see if GI symptoms improves. Tobacco abuse - pt not interested in stopping smoking. start on ms contin 15mg twice daily - use the hydrocodone in between use of the ms contin in attempt to have control of pain - record how much pain medication is needed for pain control and bring the average to the next office visit=we will then attempt to get the ms contin up to a dose that can be handled. . Hyperlipidemia - pt has been counseled about appropriate diet, exercise, and need for low fat food choices. I have discussed the need for the patient to take medications as prescribed. If the patient has negative side effects from the medication, they are to CALL the office and not abruptly discontinue the medication without discussion with a practitioner in the office. We will check labs in 3-6 months for follow up on the patient's chronic medical problem and to assure normal liver response to medications. Chronic Pain Syndrome - pt has chronic pain - has been maintained on current medications, has not sought out other medications, only uses PRN pain medications as directed, and understands the consequences of over-medication. start on ms contin 15mg twice daily - use the hydrocodone in between use of the ms contin in attempt to have control of pain - record how much pain medication is needed for pain control and bring the average to the next office visit=we will then attempt to get the ms contin up to a dose that can be handled. COPD - referral to [facility] - see studies done in office for full details - pt needs oxygen study at home at night - pt reports that she is fatigued, falling, weak, worse in the evening and at night.
--- OUTSIDE RECORDS SUMMARY | 2017-05-11 03:09 | XMS REPORT | CCD ---
Author Author [facility] Organization [facility] Address [address] [place] [address] Phone Care Team Providers Care Community Service Officer Coordinator Name Role Phone PP Unavailable CCM Unavailable Summary Purpose Interface Exchange Insurance Providers Payer name Policy type / Coverage type Covered alliance party ID Effective Begin Date Effective End Date WPS Medicare Part B Medicare Part B [id number] Unknown Unknown [facility] Medicare Part B [id number] Unknown Unknown Family history Aunt Diagnosis Age [...] Unknown Retired 09/16/[address]: 82325078 Current every day smoker 2ppd 09/16/2014 Allergies, Adverse Reactions, Alerts Allergies, Adverse Reactions, Alerts data not found Past Medical History Illness Codes Condition Status Onset Date Resolved Date Drug induced constipation ICD-9: 564.09 ICD-10: K59.03 Active 09/13/2016 Unknown Gastro-esophageal reflux disease without esophagitis ICD-9: 530.81 ICD-10: K21.9 Active 10/19/2014 Unknown Chronic pain syndrome ICD-9: 338.4 ICD-10: G89.4 Active 09/15/2014 Unknown Encounter for immunization ICD-9: V03.9 ICD-10: Z23 Active 01/15/2017 Unknown Low back pain ICD-9: 724.2 ICD-10: M54.5 Active 09/13/2016 Unknown Other emphysema ICD-9 : 492.8 ICD-10: [...] Problems Condition Codes Effective Dates Condition Status Drug induced constipation ICD-9: 564.09 ICD-10: K59.03 09/13/2016 Active Gastro-esophageal reflux disease without esophagitis ICD-9: 530.81 ICD-10: K21.9 10/19/2014 Active Chronic pain syndrome ICD-9: 338.4 ICD-10: G89.4 09/15/2014 Active Encounter for immunization ICD-9: V03.9 ICD-10: Z23 01/15/2017 Active Low back pain ICD-9: 724.2 ICD-10: M54.5 09/13/2016 Active Other emphysema ICD-9 : 492.8 ICD-10: [...] Start Date Stop Date Status Fill Instructions oxycodone 20 mg tablet RxNorm: 5861844 1 Tablet(s) PO Q4H 04/1105/10/2017 Active oxycodone 20 mg tablet RxNorm: 7684703 1 Tablet(s) PO Q4H 03/1204/10/2017 Inactive Valium 5 mg tablet RxNorm: 532247 1 Tablet(s) PO Q4H BRAND NAME ONLY!! 03/01/2017 05/29/2017 Active hydrocodone 10 mg-acetaminophen 325 mg tablet RxNorm: 923532 2 Tablet(s) PO Q4H 02/11/2017 03/12/2017 Inactive Valium 5 mg tablet RxNorm: 772034 1 Tablet(s) PO Q4H BRAND NAME ONLY!! 01/30/2017 02/28/2017 Inactive hydrocodone 10 mg-acetaminophen 325 mg tablet RxNorm: 059357 2 Tablet(s) PO Q4H 01/09/2017 02/07/2017 Inactive hydrocodone 10 mg-acetaminophen 325 mg tablet RxNorm: 517616 2 Tablet(s) PO Q4H 12/12/2016 01/08/2017 Inactive Movantik 25 mg tablet RxNorm: 8819046 1 Tablet(s) PO daily 11/2202/19/2017 Inactive ProAir HFA 90 mcg/actuation aerosol inhaler RxNorm: 736808 USE 2 INHALATIONS ORALLY EVERY 4 HOURS NEEDED 11/12/2016 02/19/2017 Inactive hydrocodone 10 mg-acetaminophen 325 mg tablet RxNorm: 410301 2 Tablet(s) PO Q4H 11/12/2016 12/11/2016 Inactive hydrocodone 10 mg-acetaminophen 325 mg tablet RxNorm: 377743 2 Tablet(s) PO Q4H 10/11/2016 11/08/2016 Inactive Movantik 25 mg tablet RxNorm: 5117719 1 Tablet(s) PO daily 10/0310/02/2016 Inactive Movantik 25 mg tablet RxNorm: 1744566 1 Tablet(s) PO daily 10/0311/21/2016 Inactive Miralax 17 gram/dose oral powder RxNorm: 787034 1 dose PO daily as needed constipation 10/01/2016 No Stop Date Active bethanechol chloride 25 mg tablet RxNorm: 664080 1/2 - 1 Tablet(s) PO TID as needed urinary retention 09/13/20162016 Inactive hydrocodone 10 mg-acetaminophen 325 mg tablet RxNorm: 581030 2 Tablet(s) PO Q4H 09/13/2016 10/09/2016 Inactive hydrocodone 10 mg-acetaminophen 325 mg tablet RxNorm: 649391 2 Tablet(s) PO Q4H 08/10/2016 09/08/2016 Inactive Protonix 40 mg tablet,delayed release RxNorm: 367345 1 TABLET(S) PO DAILY 07/16/2016 10/13/2016 Inactive hydrocodone 10 mg-acetaminophen 325 mg tablet RxNorm: 406809 2 Tablet(s) PO Q4H 06/12/2016 08/09/2016 Inactive estradiol 1 mg tablet RxNorm: 726487 1 Tablet(s) PO daily 201605/22/2017 Active hydrocodone 10 mg-acetaminophen 325 mg tablet RxNorm: 291611 2 Tablet(s) PO Q4H 05/16/2016 06/11/2016 Inactive hydrocodone 10 mg-acetaminophen 325 mg tablet RxNorm: 658783 2 Tablet(s) PO Q4H 04/16/2016 04/15/2016 Inactive hydrocodone 10 mg-acetaminophen 325 mg tablet RxNorm: 839509 2 Tablet(s) PO Q4H 04/16/2016 05/15/2016 Inactive Valium 5 mg tablet RxNorm: 061177 1 Tablet(s) PO Q4H BRAND NAME ONLY!! 04/10/2016 10/06/2016 Inactive hydrocodone 10 mg-acetaminophen 325 mg tablet RxNorm: 844313 2 Tablet(s) PO Q4H 02/13/2016 03/13/2016 Inactive hydrocodone 10 mg-acetaminophen 325 mg tablet RxNorm: 153630 2 Tablet(s) PO Q4H 01/12/2016 02/10/2016 Inactive Valium 5 mg tablet RxNorm: 139562 1 Tablet(s) PO Q4H BRAND NAME ONLY!! 12/29/2015 03/27/2016 Inactive hyoscyamine 0.125 mg sublingual tablet RxNorm: 7200646 Tablet(s) PLACE 1 TABLET UNDER TONGUE NEEDED FOR ABDOMINAL PAIN DIRECTED 201501/24/2016 Inactive Patient requests 90 days supply Amitiza 24 mcg capsule RxNorm: 033598 1 Capsule(s) PO BID 12/2712/21/2016 Inactive Valium 5 mg tablet RxNorm: 979646 1 Tablet(s) PO Q4H 201512/28/2015 Inactive amitriptyline 25 mg tablet RxNorm: 251122 1 Tablet(s) PO daily 12/15/2015 12/17/2016 Inactive hyoscyamine 0.125 mg sublingual tablet RxNorm: 9985854 PLACE 1 TABLET UNDER TONGUE NEEDED FOR ABDOMINAL PAIN DIRECTED 10/03/2015 10/30/2015 Inactive Patient requests 90 days supply hydrocodone 10 mg-acetaminophen 325 mg tablet RxNorm: 306994 2 Tablet(s) PO Q4H 09/20/2015 10/19/2015 Inactive scopolamine 1.5 mg transdermal patch (1 mg over 3 days) RxNorm: 013666 1 TD Q72H as needed motion sick 09/14/20152015 Inactive hydrocodone 10 mg-acetaminophen 325 mg tablet RxNorm: 826377 2 Tablet(s) PO Q4H 09/14/2015 09/19/2015 Inactive ProAir HFA 90 mcg/actuation aerosol inhaler RxNorm: 066178 2 Puff(s) INH Q4H as needed 09/14/2015 03/11/2016 Inactive Valium 5 mg tablet RxNorm: 120071 1 Tablet(s) PO Q4H 201512/07/2015 Inactive MS Contin 60 mg tablet,extended release RxNorm: 129540 1 Tablet(s) PO BID 08/10/2015 09/08/2015 Inactive hydrocodone 10 mg-acetaminophen 325 mg tablet RxNorm: 858193 2 Tablet(s) PO Q4H 08/10/2015 09/08/2015 Inactive MS Contin 30 mg tablet,extended release RxNorm: 434123 1 Tablet(s) PO BID 07/13/2015 08/09/2015 Inactive Carafate 1 gram tablet RxNorm: 547032 1 Tablet(s) PO QID as needed for pain 06/27/2015 07/26/2015 Inactive Protonix 40 mg tablet,delayed release RxNorm: 867754 1 Tablet(s) PO daily 06/27/2015 06/26/2015 Inactive Protonix 40 mg tablet,delayed release RxNorm: 696066 1 TABLET(S) PO DAILY 06/27/2015 10/24/2015 Inactive Patient requests 90 days supply Amitiza 24 mcg capsule RxNorm: 796160 1 Capsule(s) PO BID 06/1212/27/2015 Inactive hydrocodone 10 mg-acetaminophen 325 mg tablet RxNorm: 578529 2 Tablet(s) PO Q4H 06/13/2015 07/12/2015 Inactive citalopram 10 mg tablet RxNorm: 450579 1 Tablet(s) PO daily 07/12/2015 Inactive citalopram 10 mg tablet RxNorm: 096176 1 Tablet(s) PO daily 06/09/2015 Inactive estradiol 1 mg tablet RxNorm: 645651 1 TABLET, 1 TIME PER DAY 02/02/2016 Inactive hydrocodone 10 mg-acetaminophen 325 mg tablet RxNorm: 257613 2 Tablet(s) PO Q4H 04/10/2015 05/09/2015 Inactive Valium 5 mg tablet RxNorm: 388177 1 Tablet(s) PO Q4H 201406/07/2015 Inactive hydrocodone 10 mg-acetaminophen 325 mg tablet RxNorm: 958459 2 Tablet(s) PO Q4H 03/10/2015 03/31/2015 Inactive scopolamine 1.5 mg transdermal patch (1 mg over 3 days) RxNorm: 147238 1 Patch TD Q72H 03/01/2015 03/10/2015 Inactive Valium 5 mg tablet RxNorm: 084714 1 Tablet(s) PO Q4H 201403/09/2015 Inactive hydrocodone 10 mg-acetaminophen 325 mg tablet RxNorm: 368095 2 Tablet(s) PO Q4H 02/07/2015 03/08/2015 Inactive sulfamethoxazole 800 mg-trimethoprim 160 mg tablet RxNorm: 607347 1 Tablet(s) PO BID 01/19/2015 01/25/2015 Inactive hydrocodone 10 mg-acetaminophen 325 mg tablet RxNorm: 559036 2 Tablet(s) PO Q4H 12/22/2014 01/20/2015 Inactive omeprazole 20 mg capsule,delayed release RxNorm: 437983 1 Capsule(s) PO BID 10/20/2014 10/19/2014 Inactive omeprazole 20 mg capsule,delayed release RxNorm: 868349 1 Capsule(s) PO BID 10/20/2014 10/19/2014 Inactive hydrocodone 10 mg-acetaminophen 325 mg tablet RxNorm: 639460 2 Tablet(s) PO Q4H 10/20/2014 11/18/2014 Inactive Valium 5 mg tablet RxNorm: 862604 1 Tablet(s) PO Q4H 201402/14/2015 Inactive omeprazole 20 mg capsule,delayed release RxNorm: 337784 1 Capsule(s) PO BID 10/20/2014 08/09/2015 Inactive MS Contin 15 mg tablet,extended release RxNorm: 111897 1 Tablet(s) PO BID 09/16/2014 10/19/2014 Inactive hydrocodone 10 mg-acetaminophen 325 mg tablet RxNorm: 070144 1 Tablet(s) PO Q6 as needed 09/13/2014 10/19/2014 Inactive fenofibrate nanocrystallized 145 mg tablet RxNorm: 031226 1 Tablet(s) PO daily No Start Date Active ipratropium-albuterol inhalation RxNorm: 435 inhalation No Start Date Active baclofen 10 mg tablet RxNorm: 895528 3 Tablet(s) PO PRN No Start Date Active Amitiza 24 mcg capsule RxNorm: 735069 1 Capsule(s) PO BID No Start Date 06/12/2015 Inactive hydrocodone 10 mg-acetaminophen 325 mg tablet RxNorm: 122688 1 Tablet(s) PO Q6 as needed No Start Date 09/12/2014 Inactive hyoscyamine 0.125 mg sublingual tablet RxNorm: 4897625 1 Tablet(s) SL PRN as needed abdominal pain No Start Date 2015 Inactive lansoprazole 30 mg capsule,delayed release RxNorm: 464694 1 Capsule(s) PO BID No Start Date 07/13/2015 Inactive ProAir HFA 90 mcg/actuation aerosol inhaler RxNorm: 909284 2 Puff(s) INH Q4H as needed No Start Date 09/13/2015 Inactive estradiol 1 mg tablet RxNorm: 204370 1 Tablet(s) PO daily No Start Date 05/08/2015 Inactive Miralax 17 gram/dose oral powder RxNorm: 682894 1 dose PO daily as needed constipation No Start Date 09/30/2016 Inactive Valium 5 mg tablet RxNorm: 686372 1 Tablet(s) PO Q4H No Start Date 10/19/2014 Inactive amitriptyline 25 mg tablet RxNorm: 536781 1 Tablet(s) PO daily No Start Date 12/14/2015 Inactive Medication Administered No Medication Administered data Immunizations Vaccine Codes Date Status Influenza CVX: 141 01/15/2017 completed Pneumococcal (Adult) CVX: 33 01/13/2016 completed Influenza CVX: 141 12/15/2015 completed Influenza CVX: 141 12/16/2014 completed Assessments Condition Codes Effective Dates Drug induced constipation ICD-10: K59.03 ICD-9: 564.09 01/30/2017 Gastro-esophageal reflux disease without esophagitis ICD-10 : K21.9 ICD-9: 530.81 01/30/2017 Other emphysema ICD-10: J43.8 ICD-9: 492.8 01/15/2017 Chronic pain syndrome ICD-10: G89.4 ICD-9: 338.4 01/15/2017 Low back pain ICD-10: M54.5 ICD-9: 724.2 01/15/2017 Encounter for immunization ICD-10: Z23 ICD-9: [...] Visit Reason For Visit Effective Dates Notes constipation 01/30/2017 back pain 01/15/2017 Annual Medicare [...] 37.9 % 12/24/2016 Cbc With Differential Ord2 Lymph% 51.4 % 12/24/2016 Cbc With Differential Ord2 MCV 97.8 fl 12/24/2016 Cbc With Differential Ord2 Hutchinson% 7.9 % 12/24/2016 Cbc With Differential Ord2 MCH 33.3 pg 12/24/2016 Cbc With Differential Ord2 MCHC 34.0 pg 12/24/2016 Cbc With Differential Ord2 Eos% 2.3 % 12/24/2016 Cbc With Differential Ord2 Baso% 0.5 % 12/24/2016 Cbc With Differential Ord2 PLT 315 K/ul 12/24/2016 Cbc With Differential Ord2 RDW 12.5 % 12/24/2016 Cbc With Differential Ord2 Neut ABS# 2.10 K/ul 12/24/2016 Cbc With Differential Ord2 Lymph ABS# 2.85 K/ul 12/24/2016 Cbc With Differential Ord2 Hutchinson ABS# 0.4 K/ul 12/24/2016 Cbc With Differential Ord2 Eos ABS# 0.1 K/ul 12/24/2016 Cbc With Differential Ord2 Baso ABS# 0.0 K/ul 12/24/2016 Tsh Ord6 hTSH II 4.10 uIU/mL 12/24/2016 Lipid Ord30 CHOL 219 mg/dL 12/24/2016 Lipid Ord30 HDL 92.0 mg/dl 12/24/2016 Lipid Ord30 TRIG 201 mg/dL 12/24/2016 Lipid Ord30 LDL 87 mg/dL 12/24/2016 Lipid Ord30 C/HDL 2.4 Ratio 12/24/2016 Comp Metabolic Ygq580 NA 138 mEq/L 12/24/2016 Comp Metabolic Kgs231 K 4.9 mEq/L 12/24/2016 Comp Metabolic Wec066 CL 101 mEq/L 12/24/2016 Comp Metabolic Ykj350 CO2 30.0 mEq/L 12/24/2016 Comp Metabolic Gcs769 ANION GAP 12 12/24/2016 Comp Metabolic Ueo086 GLUCOSE 89 mg/dL 12/24/2016 Comp Metabolic Inx925 Creat 0.8 mg/dL 12/24/2016 Comp Metabolic Wiw852 eGFR 75 ml/min/1.73m2 12/24/2016 Comp Metabolic Koy582 BUN 13 mg/dL 12/24/2016 Comp Metabolic Mki051 B/C Ratio 16.3 Ratio 12/24/2016 Comp Metabolic Nyj418 CALCIUM 10.3 mg/dL 12/24/2016 Comp Metabolic Rho367 ALK PHOS 37 U/L 12/24/2016 Comp Metabolic Snl933 AST(SGOT) 17 U/L 12/24/2016 Comp Metabolic Swb048 ALT(SGPT) 9 U/L 12/24/2016 Comp Metabolic Woz270 BILI T 0.3 mg/dL 12/24/2016 Comp Metabolic Eso163 ALBUMIN 4.4 g/dL 12/24/2016 Comp Metabolic Npw505 TPRO 6.9 g/dL 12/24/2016 Comp Metabolic Zvm512 GLOB 2.5 g/dL 12/24/2016 Comp Metabolic Xrl669 A/G Ratio 1.7 Ratio 12/24/2016 Comp Metabolic Hur478 Osmo 275 mOsmo 12/24/2016 Lipid Ord30 CHOL 206 mg/dL 01/03/2016 Lipid Ord30 HDL 100.0 mg/dl 01/03/2016 Lipid Ord30 TRIG 99 mg/dL 01/03/2016 Lipid Ord30 LDL 86 mg/dL 01/03/2016 Lipid Ord30 C/HDL 2.1 Ratio 01/03/2016 Lipid Ord30 CHOL 214 mg/dL 09/28/2015 Lipid Ord30 HDL 98.0 mg/dl 09/28/2015 Lipid Ord30 TRIG 133 mg/dL 09/28/2015 Lipid Ord30 LDL 89 mg/dL 09/28/2015 Lipid Ord30 C/HDL 2.2 Ratio 09/28/2015 Comp Metabolic Kwk502 NA 136 mEq/L 09/28/2015 Comp Metabolic Ndr197 K 4.3 mEq/L 09/28/2015 Comp Metabolic Gud119 CL 105 mEq/L 09/28/2015 Comp Metabolic Xir908 CO2 20.0 mEq/L 09/28/2015 Comp Metabolic Rqc107 ANION GAP 15 09/28/2015 Comp Metabolic Djp689 GLUCOSE 88 mg/dL 09/28/2015 Comp Metabolic Zud402 Creat 0.9 mg/dL 09/28/2015 Comp Metabolic Coa148 eGFR 67 ml/min/1.73m2 09/28/2015 Comp Metabolic Rba042 BUN 10 mg/dL 09/28/2015 Comp Metabolic Tvw007 B/C Ratio 11.4 Ratio 09/28/2015 Comp Metabolic Txk569 CALCIUM 9.6 mg/dL 09/28/2015 Comp Metabolic Jdr447 ALK PHOS 34 U/L 09/28/2015 Comp Metabolic Ldx315 AST(SGOT) 17 U/L 09/28/2015 Comp Metabolic Ciq422 ALT(SGPT) 9 U/L 09/28/2015 Comp Metabolic Whw575 BILI T 0.4 mg/dL 09/28/2015 Comp Metabolic Tee573 ALBUMIN 4.7 g/dL 09/28/2015 Comp Metabolic Hwo092 TPRO 7.4 g/dL 09/28/2015 Comp Metabolic Vhv624 GLOB 2.7 g/dL 09/28/2015 Comp Metabolic Jhl839 A/G Ratio 1.7 Ratio 09/28/2015 Comp Metabolic Dnw177 Osmo 270 mOsmo 09/28/2015 Culture Urine [id number] URINE CULTURE SEE NOTES 01/24/2015 Culture Urine [id number] Continued Results 01/24/2015 Urine Culture Ucult Complete >100,000 col/ml aerobic growth sent to ref lab 01/20/2015 Vitamin D 25 Oh Dox9770 VITAMIN D, 25 HYDROXY 77.29 ng/mL Cbc [...] Tsh Ord6 hTSH II 1.42 uIU/mL 09/30/2014 Lipid Ord30 CHOL 199 mg/dL 09/30/2014 Lipid Ord30 HDL 95.0 mg/dl 09/30/2014 Lipid Ord30 TRIG 91 mg/dL 09/30/2014 Lipid Ord30 LDL 86 mg/dL 09/30/2014 Lipid Ord30 C/HDL 2.1 Ratio 09/30/2014 Comp Metabolic Yxs914 NA 136 mEq/L 09/30/2014 Comp Metabolic Uvn190 K 4.0 mEq/L 09/30/2014 Comp Metabolic Igd987 CL 104 mEq/L 09/30/2014 Comp Metabolic Ojr497 CO2 25.0 mEq/L 09/30/2014 Comp Metabolic Nqj478 ANION GAP 11 09/30/2014 Comp Metabolic Nfd082 GLUCOSE 84 mg/dL 09/30/2014 Comp Metabolic Zov764 Creat 0.9 mg/dL 09/30/2014 Comp Metabolic Bws673 eGFR 67 ml/min/1.73m2 09/30/2014 Comp Metabolic Hoi970 BUN 9 mg/dL 09/30/2014 Comp Metabolic Gha835 B/C Ratio 10.2 Ratio 09/30/2014 Comp Metabolic Zde403 CALCIUM 9.5 mg/dL 09/30/2014 Comp Metabolic Tvy619 ALK PHOS 34 U/L 09/30/2014 Comp Metabolic Dpj915 AST(SGOT) 19 U/L 09/30/2014 Comp Metabolic Dgw984 ALT(SGPT) 11 U/L 09/30/2014 Comp Metabolic Lkm798 BILI T 0.4 mg/dL 09/30/2014 Comp Metabolic Bvu842 ALBUMIN 4.2 g/dL 09/30/2014 Comp Metabolic Spy064 TPRO 6.6 g/dL 09/30/2014 Comp Metabolic Aew340 GLOB 2.4 g/dL 09/30/2014 Comp Metabolic Iki412 A/G Ratio 1.8 Ratio 09/30/2014 Comp Metabolic Wly820 Osmo 270 mOsmo 09/30/2014 Review of Systems System Result Effective Dates Constitutional recent illness 01/30/2017 Constitutional No chills [...] Result Effective Dates Notes Full Exam - General 1994 Constitutional general [...] 09/16/2014 None Procedures Procedure Codes Date 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 3-[address]: 155699727 CPT-4: G0436 01/15/2017 ADMIN INFLUENZA VIRUS VAC CPT-4: G0008 01/15/2017 FLU VAC NO PRSV 4 COREY 3 YRS+ CPT-4: 11964 01/15/2017 PPPS, SUBSEQ VISIT CPT -4: G0439 09/28/2016 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 DEVELOPMENT PLANNER 3-[address]: 357707218 CPT-4: G0436 09/13/2016 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 DEVELOPMENT PLANNER 3-[address]: 111038100 CPT-4: G0436 06/12/2016 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 DEVELOPMENT PLANNER 3-[address]: 679936118 CPT-4: G0436 03/15/2016 ADMIN PNEUMOCOCCAL VACCINE SNOMED CT: 29879061 CPT-4: G0009 01/13/2016 Pneumococcal Polysaccharide Vaccine, 23-Valent, Ad CPT-4: 37906 01/13/2016 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 DEVELOPMENT PLANNER 3-[address]: 641820763 CPT-4: G0436 12/15/2015 ADMIN INFLUENZA VIRUS VAC CPT-4: G0008 12/15/2015 FLU VACC PRSV FREE INC ANTIG CPT-4: 78895 12/15/2015 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 DEVELOPMENT PLANNER 3-[address]: 256176651 CPT-4: G0436 09/14/2015 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 DEVELOPMENT PLANNER 3-[address]: 780103225 CPT-4: G0436 08/10/2015 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 DEVELOPMENT PLANNER 3-[address]: 882311390 CPT-4: G0436 07/13/2015 URINALYSIS NONAUTO W/O SCOPE CPT-4: 47761 03/01/2015 ADMIN INFLUENZA VIRUS VAC CPT-4: G0008 12/16/2014 FLU VACC 4 COREY 3 YRS PLUS IM Formatting Model/CDA Sections, Assigned to/Dulce Lepe SNOMED CT: 91237757 CPT-4: 55261Mktqctb 12/16/2014 Vital Signs Date Vital 01/30/2017 Blood Pressure 1: 118/70 Code : 8480-6 BMI: 19.8 Code : 41882-5 Heart Rate 1 : 82 bpm Height: 5'5" SpO2: 97% Weight: 119 lbs 01/15/2017 Blood Pressure 1: 120/68 Code : 8480-6 BMI: 19.8 Code : 41323-5 Heart Rate 1 : 73 bpm Height: 5'5" SpO2: 95% Weight: 119 lbs 09/28/2016 BMI: 19.1 Code: 51764-5 Height: 5'5" Weight: 115 lbs 09/13/2016 Blood Pressure 1: 120/80 Code : 8480-6 BMI: 19.1 Code : 00197-7 Heart Rate 1 : 78 bpm Height: 5'5" SpO2: 97% Weight: 115 lbs 06/12/2016 Blood Pressure 1: 118/72 Code : 8480-6 BMI: 19.6 Code : 70326-3 Heart Rate 1 : 79 bpm Height: 5'5" SpO2: 95% Weight: 118 lbs 03/15/2016 Blood Pressure 1: 128/70 Code : 8480-6 BMI: 19.1 Code : 59651-4 Heart Rate 1 : 86 bpm Height: 5'5" SpO2: 97% Weight: 115 lbs 12/15/2015 Blood Pressure 1: 120/74 Code : 8480-6 BMI: 19.0 Code : 54901-0 Heart Rate 1 : 76 bpm Height: 5'5" SpO2: 98% Weight: 114 lbs 09/14/2015 Blood Pressure 1: 140/72 Code : 8480-6 BMI: 19.3 Code : 41533-5 Heart Rate 1 : 69 bpm Height: 5'5" SpO2: 96% Weight: 116 lbs 08/10/2015 Blood Pressure 1: 134/76 Code : 8480-6 BMI: 19.7 Code : 47513-4 Heart Rate 1 : 71 bpm Height: 5'5" SpO2: 98% Weight: 118 lbs 8 oz 07/13/2015 Blood Pressure 1: 138/78 Code : 8480-6 BMI: 19.1 Code : 31303-5 Heart Rate 1 : 80 bpm Height: 5'5" SpO2: 98% Weight: 115 lbs 06/27/2015 Blood Pressure 1: 130/62 Code : 8480-6 BMI: 19.0 Code : 20616-0 Heart Rate 1 : 86 bpm Height: 5'5" SpO2: 96% Weight: 114 lbs 04/20/2015 Blood Pressure 1: 138/78 Code : 8480-6 BMI: 19.6 Code : 38272-0 Heart Rate 1 : 77 bpm Height: 5'5" SpO2: 98% Weight: 117 lbs 8 oz 01/19/2015 Blood Pressure 1: 104/64 Code : 8480-6 BMI: 18.5 Code : 20503-8 Heart Rate 1 : 93 bpm Height: 5'5" SpO2: 97% Weight: 111 lbs 10/20/2014 Blood Pressure 1: 130/78 Code : 8480-6 BMI: 18.8 Code : 41487-3 Heart Rate 1 : 82 bpm Height: 5'5" SpO2: 97% Weight: 113 lbs 09/16/2014 Blood Pressure 1: 124/78 Code : 8480-6 BMI: 19.1 Code : 07428-5 Heart Rate 1 : 71 bpm Height: 5'5" Weight: 115 lbs Functional Status No Functional Status data History of Present Illness Symptom Name Status Result Effective Date Notes constipation Quality chronic 01/30/2017 None constipation Quality [...] Performer Location Codes Date EST. PATIENT, LEVEL IV Diagnosis: Gastro-esophageal reflux disease without esophagitis[ICD10: K21.9] Diagnosis: Drug induced constipation[ICD10: K59.03] Radha Felipe MD, [facility] CPT-4: 54743 01/30/2017 ([id number]) [id number] EST. PATIENT, LEVEL IV Diagnosis: Encounter for immunization[ICD10: Z23] Diagnosis: Low back pain[ICD10: M54.5] Diagnosis: Chronic pain syndrome[ICD10: G89.4] Diagnosis: Other emphysema[ICD10: J43.8] Maryellen Felipe MD, [facility] CPT- 4: 34432 01/15/2017 [id number]) 53473 EST. PATIENT, LEVEL IV Diagnosis: Drug induced constipation[ICD10: K59.03] Diagnosis: Chronic pain syndrome[ICD10: G89.4] Diagnosis: Other emphysema[ICD10: J43.8] Diagnosis: Muscle spasm of back[ICD10: M62.830] Diagnosis: Low back pain[ICD10: M54.5] Maryellen Felipe MD, [facility] CPT- 4: 84439 09/13/2016 [id number]) 12194 EST. PATIENT, LEVEL IV Diagnosis: Chronic pain syndrome[ICD10: G89.4] Diagnosis: Chronic obstructive pulmonary disease, unspecified[ICD10: J44.9] Diagnosis: Tobacco use[ICD10: Z72.0] Diagnosis: Functional diarrhea[ICD10: K59.1] Maryellen Felipe MD, [facility] CPT-4: 45820 06/12/2016 ([id number]) 91022 EST. PATIENT, LEVEL IV Diagnosis: Chronic pain syndrome[ICD10: G89.4] Diagnosis: Functional diarrhea[ICD10: K59.1] Diagnosis: Tobacco use[ICD10: Z72.0] Maryellen Felipe MD, [facility] CPT-4: 76525 03/15/2016 ([id number]) 04337 EST. PATIENT, LEVEL IV Diagnosis: Encounter for immunization[ICD10: Z23] Diagnosis: Chronic pain syndrome[ICD10: G89.4] Diagnosis: Epigastric pain[ICD10: R10.13] Maryellen Felipe MD, [facility] CPT- 4: 80203 12/15/2015 ([id number]) 80723 EST. PATIENT, LEVEL III Diagnosis: Chronic pain syndrome[ICD10: G89.4] Diagnosis: Gastro-esophageal reflux disease without esophagitis[ICD10: K21.9] Diagnosis: Epigastric pain[ICD10: R10.13] Diagnosis: Tobacco use[ICD10: Z72.0] Maryellen Felipe MD, [facility] CPT-4: 85972 09/14/2015 ([id number]) 58729 EST. PATIENT, LEVEL III Diagnosis: Chronic pain syndrome[ICD10: G89.4] Diagnosis: Gastro-esophageal reflux disease without esophagitis[ICD10: K21.9] Diagnosis: Tobacco use[ICD10: Z72.0] Maryellen Felipe MD, [facility] CPT-4: 76272 08/10/2015 ([id number]) 02811 EST. PATIENT, LEVEL IV Diagnosis: Gastro-esophageal reflux disease without esophagitis[ICD10: K21.9] Diagnosis: Chronic obstructive pulmonary disease, unspecified[ICD10: J44.9] Diagnosis: Chronic pain syndrome[ICD10: G89.4] Diagnosis: Tobacco use[ICD10: Z72.0] Maryellen Felipe MD, [facility] CPT-4: 88764 07/13/2015 [id number] EST. PATIENT, LEVEL IV Diagnosis: Epigastric pain[ICD10: R10.13] Diagnosis: Gastro-esophageal reflux disease without esophagitis[ICD10: K21.9] Diagnosis: Chronic pain syndrome[ICD10: G89.4] Diagnosis: Chronic obstructive pulmonary disease, unspecified[ICD10: J44.9] Radha Felipe MD, [facility] CPT-4: 53876 06/27/2015 ([id number]) 29399 EST. PATIENT, LEVEL III Diagnosis: Chronic pain syndrome[ICD10: G89.4] Diagnosis: Chronic obstructive pulmonary disease, unspecified[ICD10: J44.9] Maryellen Felipe MD, [facility] CPT-4: 46062 04/20/2015 ([id number]) 39821 EST. PATIENT, LEVEL III Diagnosis: Dysuria[ICD10: R30.0] Maryellen Felipe MD, [facility] CPT-4: 49125 01/19/2015 ([id number]) 61454 EST. PATIENT, LEVEL IV Diagnosis: CHRONIC AIRWAY OBST NEC[ICD9: 496] Diagnosis: CHRONIC PAIN SYNDROME[ICD9: 338.4] Diagnosis: ESOPHAGEAL REFLUX[ICD9: 530.81] Diagnosis: Muscle spasm[ICD9: 728.85] [facility] CPT- 4: 75602 10/20/2014 ([id number]) OFFICE VISIT, NEW - LEVEL 4 Diagnosis: HYPERLIPIDEMIA[ICD9: 272.4] Diagnosis: CHRONIC PAIN SYNDROME[ICD9: 338.4] Diagnosis: CHRONIC AIRWAY OBST NEC[ICD9: 496] Maryellen Felipe MD, [facility] CPT-4: 69089 09/16/2014 Plan of Care Planned Activity Notes Codes Status Date Appointment: [id number] ([facility] min) Moderate 04/02/2017 Care Plan: Referral Order SNOMED-CT : [id number] Pending 02/04/2017 Visit Plan: Ongoing intermittent abdominal [...] this regimen. 01/30/2017 App[facility]ment: [id number] ([facility] min) Complex 01/30/2017 Patient Education: Patient [...] stop smoking. 01/15/2017 [facility]ment[phone] ([facility] min) Moderate 01/15/2017 Patient Education: Patient [...] care surrogate. 09/28/2016 App[facility]ment: [id number] [facility] - Annual Wellness Visit 09/28/2016 Patient Education: [...] with proair. 09/13/2016 Appointment: Maryellen Felipe WPtel: [phone] [id number] (15 min) Moderate 09/13/2016 Patient Education: Patient [...] stop smoking. 06/12/2016 Appointment: Maryellen Felipe WPtel: [facility] (15 min) Moderate 06/12/2016 Appointment: Maryellen Felipe WPtel: [facility]9 [facility] (15 min) Moderate 06/12/2016 Patient Education: Patient [...] stopping smoking. 03/15/2016 Appointment: Maryellen Felipe WPtel: [facility] (15 min) Moderate 03/15/2016 Patient Education: Patient [...] stopping smoking. 12/15/2015 App[facility]ment: [phone] [facility] (15 min) Moderate 12/15/2015 Patient Education: Patient [...] stopping smoking. 09/14/2015 Appointment: Mary[phone] (15 min) Moderate 09/14/2015 Patient Education: Patient [...] Pt to have new rx for ms susannah - to start for better pain control and hopefully she will need less PRN pain medication as she will have more optimal pain control. 07/13/2015 Appointment: Maryellen Felipe WPtel: [phone] [facility] (15 min) Moderate 07/13/2015 Patient Education: Patient Medication Summary Completed 07/13/2015 Patient Education: Smoking and Tobacco Addiction Completed 07/13/2015 Referral: Edgardo Guerrero HPtel:[phone] [facility] [place] Referral Completed 06/29/2015 Visit Plan: Esophageal Reflux [...] 06/27/2015 Care Plan: Referral Order SNOMED-CT : [id number] Ordered 06/27/2015 Visit Plan: COPD - chronic [...] not improve. 01/19/2015 Appointment: Maryellen Fel[phone] (15 min) Moderate 01/19/2015 Patient Education: [...] not improving. 10/20/2014 Appointment: Maryellen Fel[phone] (15 min) Moderate 10/20/2014 Patient Education: [...] can be handled. COPD - referral to [facility] patient - see studies done in office for full details - pt needs oxygen study at home at night - pt reports that she is fatigued, falling, weak, worse in the evening and at night. 09/16/2014 Appointment: Maryellen Felipe WPtel: [phone] [facility] [place] (S) New Patient 09/16/2014 Patient Education: Patient Medication Summary Completed 09/16/2014 Referral: Edgardo Guerrero HPtel:[phone] [place], [place] [id number] [place] Referral Initiated Referral: Yogesh Suazo [address] [facility] Referral Relationship Instructions Comment take the antibiotics as directed and take a PROBIOTIC like [employer] or [employer] while on the antibiotic. . UTI - [...] pt not interested in stopping smoking. . Esophageal Reflux - the patient has [...] helping. . Back pain - referral to [facility] for therapy /back pain, water therapy for [...] dexilant daily Appointment with Dany (Dr. Suazo's) INTEL RECRUITER for evaluation before scopes - on 02/05 at 10:15 . Ongoing intermittent abdominal pain - pt has seen Dr. Suazo for scopes in the past - will refer back to Dr. uSazo for evaluation - will refer to GI [...] can be handled. COPD - referral to [facility] patient - see studies done in office for full details - pt needs oxygen study at home at night - pt reports that she is fatigued, falling, weak, worse in the evening and at night.
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
== END 2017-05-11 01:01 | disposition home or self-care (01) ==
LOC: EDUNIT# 22:33 → ER 22:34
DX: K52.9 Noninfective gastroenteritis and colitis, unspecified (principal); E86.9 Volume depletion, unspecified; J44.9 Chronic obstructive pulmonary disease, unspecified; G43.909 Migraine, unspecified, not intractable, without status migrainosus; K21.9 Gastro-esophageal reflux disease without esophagitis; F17.210 Nicotine dependence, cigarettes, uncomplicated; Z90.710 Acquired absence of both cervix and uterus; Z90.49 Acquired absence of other specified parts of digestive tract; Z87.19 Personal history of other diseases of the digestive system; Z98.51 Tubal ligation status; Z88.8 Allergy status to other drugs, medicaments and biological substances; Z79.82 Long term (current) use of aspirin
CPT/HCPCS: 36415; 80053; 81000; 82150; 83690; 85025

== ENCOUNTER 2017-10-30 07:09 | Day surgery (SDC) | payer MEDICARE, BC ==
[~2017-10-30] VITALS: Ht 165.1 cm; Wt 51.3 kg
[2017-10-30] VITALS (10 sets, daily range): BP systolic 117–170; BP diastolic 74–95
[~2017-10-30 07:09] MED LIST changes: +HYOS0.1283 SL; +ONDA4TAB8 PO
[2017-10-30] MEDS ORDERED: NS IV 1000 ML 1,000 ML IV SCH ×2 (07:12→09:39)
[2017-10-30] MEDS ORDERED: LIDOCAINE 1% INJ 20 ML 20 ML VIAL ONE ×2 (07:16→08:58)
[2017-10-30] MEDS ORDERED: HEParin (CATH LAB) 2,000 ML IV ONE (07:16)
[2017-10-30] MEDS ORDERED: NS IV 1000 ML 1,000 ML ONE (07:16)
--- OUTSIDE RECORDS SUMMARY | 2017-10-30 07:21 | XMS REPORT | Continuity of Care Document ---
Author Author [facility] Organization [facility] Address Unknown Phone Unavailable Allergies Active Description Code Type Severity Reaction Onset Reported/Identified Relationship to Patient Clinical Status Yes aspartame [id number] Drug Allergy Unknown HIVES 02/07/2017 Yes propoxyphene [id number] Drug Allergy Unknown N/A 02/07/2017 Medications There [...] ACC 08/12/2014 JHONY WOODARD APRN Ot V06.1 [id number], COMBINED [ 04/12/2015 JHONY WOODARD APRN Ot [...] DISEASES OF ANUS AND REC 10/07/2015 TICO GNOSALES MD Ot Z86.010 PERSONAL HISTORY OF COLONIC [...] MD Ot 272.4 HYPERLIPIDEMIA NEC/NOS 02/13/2017 ADONIS CASTRO MD Ot 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 02/13/2017 [...] NE 02/13/2017 TICO GONSALES MD Ot Z79.82 SENIOR CARE (CURRENT) USE OF ASPIRIN 02/13/2017 TICO GONSALES MD Ot Z79.899 OTHER SENIOR CARE (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 THERAPY 02/13/2017 TICO GONSALES MD [...] NE 02/18/2017 TICO GONSALES MD Ot Z79.82 SENIOR CARE (CURRENT) USE OF ASPIRIN 02/18/2017 TICO GONSALES MD, Ot 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 02/18/2017 TICO GONSALES MD [...] NE 02/21/2017 TICO GONSALES MD, Ot Z79.82 SENIOR CARE (CURRENT) USE OF ASPIRIN 02/21/2017 TICO GONSALES MD, Ot 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 02/21/2017 TICO GONSALES MD, [...] ABNORMAL MAMMOGRAM 02/25/2017 Ot 784.0 HEADACHE 02/25/2017 FORIEGN DAS MD Ot 789.00 ABDOMINAL PAIN, UNSPECIFIED [...] NE 03/22/2017 TICO GONSALES MD Ot Z79.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 03/22/2017 TICO GONSALES MD, Ot 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 03/22/2017 TICO GONSALES MD [...] APRN Ot Z98.890 OTHER SPECIFIED POSTPROCEDURAL STATES 05/11/2017 Ot 272.4 HYPERLIPIDEMIA NEC/NOS 05/11/2017 Ot 786.09 RESPIRATORY ABNORM NEC 05/11/2017 Ot 793.89 OTH (ABN) FINDINGS ON RADIOLOGICAL EXAMI 05/11/2017 Ot V76.12 OTH SCREEN MAMMO-MALIGN NEOPLASM OF SOURAV 05/11/2017 Ot 610.0 SOLITARY CYST OF BREAST 05/11/2017 Ot 793.80 UNSPEC ABNORMAL MAMMOGRAM 05/11/2017 Ot 784.0 HEADACHE 05/11/2017 THIAGO SY, FOREIGN Milian Ot 789.00 ABDOMINAL PAIN, UNSPECIFIED SITE 05/11/2017 THIAGO SY, FOREIGN M Ot 793.80 UNSPEC ABNORMAL MAMMOGRAM 05/11/2017 MATTHEW SY, ADONIS [place] Ot 272.4 HYPERLIPIDEMIA NEC/NOS 05/11/2017 ADONIS CASTRO MD Ot 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 05/11/2017 ADONIS CASTRO MD Ot 397.0 TRICUSPID VALVE DISEASE 05/11/2017 ADONIS CASTRO MD Ot 401.9 HYPERTENSION NOS 05/11/2017 ADONIS CASTRO MD Ot 786.50 CHEST PAIN NOS 05/11/2017 THIAGO SY, FOREIGN Milian Ot V76.12 OTH SCREEN MAMMO-MALIGN NEOPLASM OF SOURAV 05/11/2017 LES MAY DO Ot 496 CHR AIRWAY OBSTRUCT NEC 05/11/2017 Ot 789.06 ABDOMINAL PAIN, EPIGASTRIC 05/11/2017 MILTON ETIENNE Ot E78.2 MIXED HYPERLIPIDEMIA 05/11/2017 MILTON ETIENNE Ot I10 ESSENTIAL (PRIMARY) HYPERTENSION 05/11/2017 MILTON ETIENNE Ot J44.9 CHRONIC OBSTRUCTIVE PULMONARY DISEASE, U 05/11/2017 MILTON ETIENNE Ot Z72.0 TOBACCO USE 05/11/2017 MILTON ETIENNE Ot E78.2 MIXED HYPERLIPIDEMIA 05/11/2017 MILTON ETIENNE Ot I10 ESSENTIAL (PRIMARY) HYPERTENSION 05/11/2017 MILTON ETIENNE Ot J44.9 CHRONIC OBSTRUCTIVE PULMONARY DISEASE, U 05/11/2017 MILTON ETIENNE Ot Z72.0 TOBACCO USE 05/11/2017 MARIBELL ERIKA M OFFICE CLIN ASST Ot R19.09 OTHER INTRA-ABDOMINAL AND PELVIC SWELLIN 05/11/2017 SULY DAVILA PROCUREMENT SPECIALIST Ot 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, RIGHT KNEE 05/11/2017 SULY DAVILA PROCUREMENT SPECIALIST Ot M54.2 CERVICALGIA 05/11/2017 SULY DAVILA PROCUREMENT SPECIALIST Ot M54.5 LOW BACK PAIN 05/11/2017 SULY DAVILA PROCUREMENT SPECIALIST Ot W19.XXXA UNSPECIFIED FALL, INITIAL ENCOUNTER 05/11/2017 SULY DAVILA PROCUREMENT SPECIALIST Ot Z98.890 OTHER SPECIFIED POSTPROCEDURAL STATES 05/11/2017 SUNIL KRISTYN JUAN Ot E86.9 VOLUME DEPLETION, UNSPECIFIED 05/11/2017 SUNIL DO KRISTYN K Ot F17.210 NICOTINE DEPENDENCE, CIGARETTES, UNCOMPL 05/11/2017 VISHNU BARBER DOA K Ot G43.909 MIGRAINE, UNSP, NOT INTRACTABLE, WITHOUT 05/11/2017 VISHNU BARBER DOA Elma Ot J44.9 CHRONIC OBSTRUCTIVE PULMONARY DISEASE, U 05/11/2017 VISHNU BARBER DOA Elma Ot K21.9 GASTRO-ESOPHAGEAL REFLUX DISEASE WITHOUT 05/11/2017 VISHNU BARBER DOA Elma Ot K52.9 NONINFECTIVE GASTROENTERITIS AND COLITIS 05/11/2017 VISHNU BARBER DOA Elma Ot R11.2 NAUSEA WITH VOMITING, UNSPECIFIED 05/11/2017 SUNIL JUAN KRISTYN K Ot Z79.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 05/11/2017 VISHNU BARBER DOA Elma Ot Z87.19 PERSONAL HISTORY OF OTHER DISEASES OF TH 05/11/2017 KRISTYN BARBER DO Ot Z88.8 ALLERGY STATUS TO OTH DRUG/MEDS/BIOL SUB 05/11/2017 VISHNU BARBER DOA Elma Ot Z90.49 ACQUIRED ABSENCE OF OTHER SPECIFIED PART 05/11/2017 KRISTYN BARBER DO Ot Z90.710 ACQUIRED ABSENCE OF BOTH CERVIX AND UTER 05/11/2017 VISHNU BARBER DOA Elma Ot Z98.51 TUBAL LIGATION STATUS 05/13/2017 VISHNU BARBER DOA Elma Ot E86.9 VOLUME DEPLETION, UNSPECIFIED 05/13/2017 SUNIL VISHNU JUANA K Ot F17.210 NICOTINE DEPENDENCE, CIGARETTES, UNCOMPL 05/13/2017 KRISTYN BARBER DO Ot G43.909 MIGRAINE, UNSP, NOT INTRACTABLE, WITHOUT 05/13/2017 KRISTYN BARBER DO Ot J44.9 CHRONIC OBSTRUCTIVE PULMONARY DISEASE, U 05/13/2017 KRISTYN BARBER DO Ot K21.9 GASTRO-ESOPHAGEAL REFLUX DISEASE WITHOUT 05/13/2017 KRISTYN BARBER DO Ot K52.9 NONINFECTIVE GASTROENTERITIS AND COLITIS 05/13/2017 KRISTYN BARBER DO Ot R11.2 NAUSEA WITH VOMITING, UNSPECIFIED 05/13/2017 KRISTYN BARBER DO Ot Z79.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 05/13/2017 KRISTYN BARBER DO Ot Z87.19 PERSONAL HISTORY OF OTHER DISEASES OF TH 05/13/2017 KRISTYN BARBER DO Ot Z88.8 ALLERGY STATUS TO OT DRUG/MEDS/BIOL SUB 05/13/2017 KRISTYN BARBER DO Ot Z90.49 ACQUIRED ABSENCE OF OTHER SPECIFIED PART 05/13/2017 KRISTYN BARBER DO Ot Z90.710 ACQUIRED ABSENCE OF BOTH CERVIX AND UTER 05/13/2017 KRISTYN BARBER DO Ot Z98.51 TUBAL LIGATION STATUS 07/18/2017 Ot 793.80 UNSPEC ABNORMAL MAMMOGRAM 07/18/2017 Ot 784.0 HEADACHE 07/18/2017 THIAGO SY, FOREIGN Milian Ot 789.00 ABDOMINAL PAIN, UNSPECIFIED SITE 07/18/2017 FOREIGN DAS MD Ot 793.80 UNSPEC ABNORMAL MAMMOGRAM 07/18/2017 ADONIS CASTRO MD Ot 272.4 HYPERLIPIDEMIA NEC/NOS 07/18/2017 ADONIS CASTRO MD Ot 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 07/18/2017 ADONIS CASTRO MD Ot 397.0 TRICUSPID VALVE DISEASE 07/18/2017 ADONIS CASTRO MD Ot 401.9 HYPERTENSION NOS 07/18/2017 ADONIS CASTRO MD Ot 786.50 CHEST PAIN NOS 07/18/2017 FOREIGN DAS MD Ot V76.12 OTH SCREEN MAMMO-MALIGN NEOPLASM OF SOURAV 07/18/2017 LES MAY DO Ot 496 CHR AIRWAY OBSTRUCT NEC 07/18/2017 Ot 789.06 ABDOMINAL PAIN, EPIGASTRIC 07/18/2017 KIT MOLINA, MILTON [place]ills Ot E78.2 MIXED HYPERLIPIDEMIA 07/18/2017 KIT MOLINA, MILTON Wills Ot I10 ESSENTIAL (PRIMARY) HYPERTENSION 07/18/2017 KIT MOLINA, MILTON Wills Ot J44.9 CHRONIC OBSTRUCTIVE PULMONARY DISEASE, U 07/18/2017 KATHLEENCHIRS MOLINA, MILTON Wills Ot Z72.0 TOBACCO USE 07/18/2017 KIT MOLINA MILTON Wills Ot E78.2 MIXED HYPERLIPIDEMIA 07/18/2017 KATHLEENCHRIS MOLINA, MILTON Wills Ot I10 ESSENTIAL (PRIMARY) HYPERTENSION 07/18/2017 KIT MOLINA MILTON Wills Ot J44.9 CHRONIC OBSTRUCTIVE PULMONARY DISEASE, U 07/18/2017 KATHLEENCHRIS MOLINA MILTON Wills Ot Z72.0 TOBACCO USE 07/18/2017 ERIKA REYNA OFFICE CLIN ASST Ot R19.09 OTHER INTRA-ABDOMINAL AND PELVIC SWELLIN 07/18/2017 SULY DAVILA PROCUREMENT SPECIALIST Ot 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, RIGHT KNEE 07/18/2017 SULY DAVILA PROCUREMENT SPECIALIST Ot M54.2 CERVICALGIA 07/18/2017 SULY DAVILA PROCUREMENT SPECIALIST Ot M54.5 LOW BACK PAIN 07/18/2017 SULY DAVILA PROCUREMENT SPECIALIST Ot W19.XXXA UNSPECIFIED FALL, INITIAL ENCOUNTER 07/18/2017 SULY DAVILA PROCUREMENT SPECIALIST Ot Z98.890 OTHER SPECIFIED POSTPROCEDURAL STATES 07/20/2017 Ot 793.80 UNSPEC ABNORMAL MAMMOGRAM 07/20/2017 Ot 784.0 HEADACHE 07/20/2017 FOREIGN DAS MD Ot 789.00 ABDOMINAL PAIN, UNSPECIFIED SITE 07/20/2017 FOREIGN DAS MD Ot 793.80 UNSPEC ABNORMAL MAMMOGRAM 07/20/2017 ADONIS CASTRO MD Ot 272.4 HYPERLIPIDEMIA NEC/NOS 07/20/2017 ADONIS CASTRO MD Ot 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 07/20/2017 ADONIS CASTRO MD Ot 397.0 TRICUSPID VALVE DISEASE 07/20/2017 ADONIS CASTRO MD Ot 401.9 HYPERTENSION NOS 07/20/2017 ADONIS CASTRO MD Ot 786.50 CHEST PAIN NOS 07/20/2017 THIAGO SY, FOREIGN M Ot V76.12 OTH SCREEN MAMMO-MALIGN NEOPLASM OF SOURAV 07/20/2017 LALO JUAN LSE M Ot 496 CHR AIRWAY OBSTRUCT NEC 07/20/2017 Ot 789.06 ABDOMINAL PAIN, EPIGASTRIC 07/20/2017 MILTON ETIENNE Ot E78.2 MIXED HYPERLIPIDEMIA 07/20/2017 MILTON ETIENNE Ot I10 ESSENTIAL (PRIMARY) HYPERTENSION 07/20/2017 MILTON ETIENNE Ot J44.9 CHRONIC OBSTRUCTIVE PULMONARY DISEASE, U 07/20/2017 MILTON ETIENNE Ot Z72.0 TOBACCO USE 07/20/2017 MILTON ETIENNE Ot E78.2 MIXED HYPERLIPIDEMIA 07/20/2017 KIT MOLINA, MILTON Wills Ot I10 ESSENTIAL (PRIMARY) HYPERTENSION 07/20/2017 MILTON ETIENNE Ot J44.9 CHRONIC OBSTRUCTIVE PULMONARY DISEASE, U 07/20/2017 MILTON ETIENNE Ot Z72.0 TOBACCO USE 07/20/2017 ERIKA REYNA Ot R19.09 OTHER INTRA-ABDOMINAL AND PELVIC SWELLIN 07/20/2017 SULY DAVILA APRN Ot 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, RIGHT KNEE 07/20/2017 SULY DAVILA APRN Ot M54.2 CERVICALGIA 07/20/2017 SULY DAVILA APRN Ot M54.5 LOW BACK PAIN 07/20/2017 SULY DAVILA APRN Ot W19.XXXA UNSPECIFIED FALL, INITIAL ENCOUNTER 07/20/2017 SULY DAVILA APRN Ot Z98.890 OTHER SPECIFIED POSTPROCEDURAL STATES Procedures There is no data. Results Test Result Range Complete blood count (CBC) with automated white blood cell (WBC) differential - 05/10/17 23:14 Blood leukocytes automated count (number/volume) 8.6 10*3/uL 4.3-11.0 Blood erythrocytes automated count (number/volume) 4.48 10*6/uL 4.35-5.85 Venous blood hemoglobin measurement (mass/volume) 14.1 g/dL 11.5-16.0 Blood hematocrit (volume fraction) 41 % 35-52 Automated erythrocyte mean corpuscular volume 92 [foz_us] 80-99 Automated erythrocyte mean corpuscular hemoglobin (mass per erythrocyte) 32 pg 25-34 Automated erythrocyte mean corpuscular hemoglobin concentration measurement ( mass/volume) 34 g/dL 32-36 Automated erythrocyte distribution width ratio 12.6 % 10.0-14.5 Automated blood platelet count (count/volume) 308 10*3/uL 130-400 Automated blood platelet mean volume measurement 10.3 [foz_us] 7.4-10.4 Automated blood neutrophils/100 leukocytes 76 % 42-75 Automated blood lymphocytes/100 leukocytes 17 % 12-44 Blood monocytes/100 leukocytes 7 % 0-12 Automated blood eosinophils/100 leukocytes 0 % 0-10 Automated blood basophils/100 leukocytes 0 % 0-10 Blood neutrophils automated count (number/volume) 6.5 10*3 1.8-7.8 Blood lymphocytes automated count (number/volume) 1.4 10*3 1.0-4.0 Blood monocytes automated count (number/volume) 0.6 10*3 0.0-1.0 Automated eosinophil count 0.0 10*3/uL 0.0-0.3 Automated blood basophil count (count/volume) 0.0 10*3/uL 0.0-0.1 Comprehensive metabolic panel - 05/10/17 23:14 Serum or plasma sodium measurement (moles/volume) 139 mmol/L 135-145 Serum or plasma potassium measurement (moles/volume) 3.7 mmol/L 3.6-5.0 Serum or plasma chloride measurement (moles/volume) 102 mmol/L 98-107 Carbon dioxide 21 mmol/L 21-32 Serum or plasma anion gap determination (moles/volume) 16 mmol/L 5-14 Serum or plasma urea nitrogen measurement (mass/volume) 9 mg/dL 7-18 Serum or plasma creatinine measurement (mass/volume) 0.79 mg/dL 0.60-1.30 Serum or plasma urea nitrogen/creatinine mass ratio 11 NRG Serum or plasma creatinine measurement with calculation of estimated glomerular filtration rate > NRG Serum or plasma glucose measurement (mass/volume) 99 mg/dL 70-105 Serum or plasma calcium measurement (mass/volume) 9.3 mg/dL 8.5-10.1 Serum or plasma total bilirubin measurement (mass/volume) 0.4 mg/dL 0.1-1.0 Serum or plasma alkaline phosphatase measurement (enzymatic activity/volume) 49 U/L 40-136 Serum or plasma aspartate aminotransferase measurement (enzymatic activity/ volume) 16 U/L 5-34 Serum or plasma alanine aminotransferase measurement (enzymatic activity/volume ) 10 U/L 0-55 Serum or plasma protein measurement (mass/volume) 7.3 g/dL 6.4-8.2 Serum or plasma albumin measurement (mass/volume) 4.2 g/dL 3.2-4.5 Serum or plasma amylase measurement (enzymatic activity/volume) - 05/10/17 23: 14 Serum or plasma amylase measurement (enzymatic activity/volume) 53 U /L 25-125 Lipase - 05/10/17 23:14 Lipase 5 U/L 8-78 Complete urinalysis with reflex to culture - 05/11/17 00:30 Urine color determination YELLOW NRG Urine clarity determination CLEAR NRG Urine pH measurement by test strip 7 5-9 Specific gravity of urine by test strip 1.010 1.016- 1.022 Urine protein assay by test strip, semi-quantitative NEGATIVE NEGATIVE Urine glucose detection by automated test strip NEGATIVE NEGATIVE Erythrocytes detection in urine sediment by light microscopy 1+ NEGATIVE Urine ketones detection by automated test strip NEGATIVE NEGATIVE Urine nitrite detection by test strip NEGATIVE NEGATIVE Urine total bilirubin detection by test strip NEGATIVE NEGATIVE Urine urobilinogen measurement by automated test strip (mass/volume) NORMAL NORMAL Urine leukocyte esterase detection by dipstick NEGATIVE NEGATIVE Automated urine sediment erythrocyte count by microscopy (number/high power field) RARE NRG Automated urine sediment leukocyte count by microscopy (number/high power field ) RARE NRG Bacteria detection in urine sediment by light microscopy TRACE NRG Squamous epithelial cells detection in urine sediment by light microscopy 0-2 NRG Crystals detection in urine sediment by light microscopy NONE NRG Casts detection in urine sediment by light microscopy NONE NRG Mucus detection in urine sediment by light microscopy NEGATIVE NRG Complete urinalysis with reflex to culture NO NRG Encounters ACCT No. Visit Date/Time Discharge Status Pt. Type Provider Facility Loc./Unit Complaint [id number] 05/10/2017 22:34:00 05/11/2017 01:01:00 DIS Emergency SUNIL DO KRISTYN Elma [facility] ER VOMITING/DIZZINESS [id number] 04/01/2017 15:03:00 04/01/2017 23:59:59 CLS Outpatient SULY DAVILA APRN [facility] RAD FALL;RIGHT KNEE PAIN; LOWER BACK PAIN [id number] 02/27/2017 07:37:00 02/27/2017 23:59:59 CLS Outpatient MILTON ETIENNE [facility] CARD COPD [id number] 02/25/2017 13:02:00 02/25/2017 23:59:59 CLS Outpatient MILTON ETIENNE [facility] CARD COPD [id number] 02/13/2017 11:11:00 02/13/2017 15:30:00 DIS Outpatient TICO GONSALES MD [facility] ENDO HX POLYPS/REFLUX/STOOL INCONTINENCE [id number] 02/07/2017 05:39:00 02/07/2017 11:29:00 DIS Outpatient TICO GONSALES MD [facility] PREOP COLONOSCOPY/EGD [id number] 01/25/2017 10:10:00 01/25/2017 23:59:59 CLS Outpatient ERIKA REYNA [facility] RAD CONSTIPATION,ABD PAIN [id number] 10/07/2015 09:52:00 10/07/2015 13:15:00 DIS Outpatient TICO GONSALES MD [facility] [address] HX POLPYS,SCREENING, LLQ PAIN [id number] 10/06/2015 09:17:00 10/06/2015 13:35:00 DIS Outpatient TICO GONSALES MD [facility] PREOP HX POLPYS,SCREENING [id number] 07/15/2015 12:06:00 07/15/2015 14:00:00 DIS Outpatient MARGARET WOODS DO [facility] [address] REFLUX [id number] 07/13/2015 05:59:00 07/13/2015 16:34:00 DIS Outpatient MARGARET WOODS DO [facility] PREOP REFLUX [id number] 04/12/2015 11:38:00 04/12/2015 13:15:00 DIS Emergency JHONY WOODARD APRN [facility] ER FALL NECK/BACK/LEFT HIP PAIN [id number] 08/12/2014 10:33:00 08/12/2014 11:09:00 DIS Emergency JHONY WOODARD APRN [facility] ER R HAND CUT INDEX FINGER [id number] 03/29/2014 15:25:00 03/29/2014 23:59:59 CLS Outpatient LES MAY DO [facility] RT COPD [id number] 02/17/2014 10:28:00 02/17/2014 23:59:59 CLS Outpatient FOREIGN DAS MD [facility] RAD SCREENING [id number] 02/10/2014 10:10:00 02/10/2014 23:59:59 CLS Outpatient ADONIS CASTRO MD [facility] CARD COPD,CP,HLP,HTN [id number] 12/29/2013 14:08:00 12/29/2013 16:02:00 DIS Emergency BONNIE YARBROUGH MD [facility] ER FALL BACK/HEAD INJURY [id number] 01/27/2013 13:04:00 01/27/2013 23:59:59 CLS Outpatient FOREIGN DAS MD [facility] RAD 6 MONTH FOLLOW UP [id number] 10/17/2012 13:52:00 10/17/2012 23:59:59 CLS Outpatient FOREIGN DAS MD [facility] RAD ABD PAIN [id number] 05/12/2014 09:06:00 Document Registration [id number] 02/09/2014 09:33:00 Document Registration [id number] 06/30/2012 12:43:00 Document Registration [id number] 06/26/2012 12:40:00 Document Registration [id number] 01/03/2012 14:05:00 Document Registration [id number] 12/24/2011 06:39:00 Document Registration [id number] 12/24/2011 06:32:00 Document Registration [id number] 06/11/2011 13:46:00 Document Registration [id number] 05/24/2011 12:44:00 Document Registration [id number] 05/23/2010 13:47:00 Document Registration [id number] 03/06/2010 12:03:00 Document Registration [id number] 01/09/2010 07:06:00 Document Registration [id number] 01/02/2010 08:53:00 Document Registration [id number] 10/10/2009 06:56:00 Document Registration [id number] 09/05/2009 08:01:00 Document Registration [id number] 12/22/2008 11:23:00 Document Registration [id number] 11/12/2008 14:54:00 Document Registration [id number] 10/11/2008 12:00:00 Document Registration [id number] 01/29/2017 14:22:16 01/29/2017 23:59:59 [id number] 08/12/2014 10:36:19 ACT Document Registration
--- NOTE | 2017-10-30 07:43 | Diagnostic Imaging Report ---
EXAMINATION: Chest radiograph, portable AP view. DATE: October 30, 2017 at 0726 hours. INDICATION: 72-year-old female, chest pain, shortness of breath. COMPARISON: December 29, 2013. FINDINGS: Heart size and mediastinal contours are unchanged and unremarkable. There is no identified pneumothorax. There is no large pleural effusion. There is a stable pulmonary nodule in the left upper lobe compatible with benign etiology. There is no identified interval focal airspace consolidation. IMPRESSION: No identified acute cardiopulmonary abnormality. Dictated by: Dictated on workstation # [id number]
[2017-10-30 07:55] LABS: HEMOGLOBIN 13.9 G/DL (11.5-16.0); MEAN PLATELET VOLUME 10.5 FL (7.4-10.4); RED BLOOD COUNT 4.22 10^6/uL (4.35-5.85); RED CELL DISTRIBUTION WIDTH 13.3 % (10.0-14.5)
[2017-10-30 08:19] LABS: ALANINE AMINOTRANSFERASE 13 U/L (0-55); ALBUMIN 4.3 GM/DL (3.2-4.5); ALKALINE PHOSPHATASE 34 U/L (40-136); BILIRUBIN,TOTAL 0.3 MG/DL (0.1-1.0); BUN/CREATININE RATIO 18; CALCIUM 10.6 MG/DL (8.5-10.1); CARBON DIOXIDE 26 MMOL/L (21-32); CHLORIDE 103 MMOL/L (98-107); CHOLESTEROL 196 MG/DL (< 200); CREATININE SERUM 0.89 MG/DL (0.60-1.30); GFR ESTIMATED > 60; GLUCOSE 83 MG/DL (70-105); HDL CHOLESTEROL 94 MG/DL (40-60); POTASSIUM 3.7 MMOL/L (3.6-5.0); SODIUM 140 MMOL/L (135-145); TOTAL PROTEIN 7.2 GM/DL (6.4-8.2); TRIGLYCERIDES 75 MG/DL (<150); VLDL CHOLESTEROL 15 MG/DL (5-40)
[2017-10-30] MEDS ORDERED: fentaNYL INJECTION 100 MCG/2 ML AMP ONE (08:51)
[2017-10-30] MEDS ORDERED: MIDAZOLAM 5 MG/5 ML (VERSED) VIAL ONE (08:51)
--- NOTE | 2017-10-30 08:53 | Cardiac Procedure Note-CS/ASA ---
Pre-Procedure Note Pre-Op Procedure Note H&P Reviewed The H&P was reviewed, patient examined and no changes noted. Date H&P Reviewed: Oct 30, 2017 Time H&P Reviewed: 08:53 Conscious Sedation Pre-Proced Time Reviewed: 08:53 ASA Class: 3 Airway Mallampati Classification: (mi'kmaq appropriate class) I. II. III, IV Lungs Heart ASA score ASA 1: a normal healthy patient ASA 2: a patient with a mild systemic disease (mid diabetes, controlled hypertension, obesity x ASA 3: a patient with a severe systemic disease that limits activity (angina , COPD, prior Myocardial infarction) ASA 4: a patient with an incapacitating disease that is a constant threat to life (CHF, renal failure) ASA 5: a moribund patient not expected to survive 24 hrs. (ruptured aneurysm) ASA 6: a declared brain patient whose organs are being harvested. For emergent operations, add the letter E after the classification Grade 3 Sedation Plan: Analgesia, Amnesia, Plan communicated to team members, Discussed options with patient/fam, Discussed risks with patient/fam Note The patient is an appropriate candidate to undergo the planned procedure, sedation, and anesthesia. The patient immediately re-assessed prior to indication. ADONIS CASTRO MD Oct 30, 2017 08:53
[2017-10-30] MEDS ORDERED: DIAZ5TAB3 PO ×2 (09:01→09:03)
[2017-10-30] MEDS ORDERED: LOSA50TA36 PO (09:03)
[2017-10-30] MEDS ORDERED: OMEP20CA12 PO (09:04)
[2017-10-30] MEDS ORDERED: METH10TA2 PO (09:05)
--- NOTE | 2017-10-30 09:44 | Cardiac Cath Report ---
Cardiac Cath Report Physician (s)/Launch Engineer (s) Physician ADONIS CASTRO MD Pre-Procedure Diagnosis Pre-Procedure Diagnosis: Chest pain, coronary artery disease Post-Procedure Note Procedure Start Date: Oct 30, 2017 Name of Procedure: Left heart catheterization Findings/Procedure Note PROCEDURE NOTE: After explaining the procedure to the patient, all pros and cons were explained , all questions were answered. The patient signed the consent and then she was placed on the cardiac catheterization laboratory. Groin was prepped SL fashion local anesthesia was used. Sheath placed in the right femoral artery. [place] right and left catheter were used to access the coronary system. Pigtail was used to access the left ventricular cavity. Patient had some calcification in the aortic arch, she has been having significant chest pain, had mild coronary artery disease I decided to evaluate aortic arch angiogram Left ventriculogram was done Aortic arch angiogram was done At the end of the procedure the sheath was removed. Closure device was used FINDINGS: Hemodynamics LV 148/20, end-diastolic pressure of 20 Aorta 146/67 mean of 101 ANATOMY: Left Main very small with no significant obstructive disease Left Anterior Descending small artery almost the size of a 6 Upper Sorbian catheter with no obstructive disease small vessel disease distally Left Circumflex small artery with no obstructive disease Right Coronory Artery is small artery with no obstructive disease LV Gram was done, normal LV size and function, ejection fraction 60 percent Aorta evaluation done with aortic arch angiogram showing consultation the aortic arch no dissection, no aneurysm, origin of the subclavian artery, left carotid and right subclavian arteries were normal. CONCLUSION: 1. Small coronary system with mild disease at the distal LAD small vessel disease 2. Normal left ventricular size and systolic function with an ejection fraction 60 percent 3. Normal aortic arch and great neck vessels DISCUSSION AND RECOMMENDATION: Medical therapy is recommended no intervention is warranted Anesthesia Type: Conscious Sedation Estimated blood loss (mL): 10 ml Contrast Amount: 58 ml Total Radiation Dose: 54 mGy Post-Procedure Diagnosis Post-operative diagnosis: Chest pain nonspecific etiology Coronary artery disease Hypertension Hyperlipidemia ADONIS CASTRO MD Oct 30, 2017 09:44
[2017-10-30] MEDS ORDERED: PATIENT MAY USE OWN MEDS, ALL PO SCH (09:45)
--- NOTE | 2017-10-30 09:45 | Discharge Inst-Post CATH ---
Discharge Inst-CATH Post Cardiac Cath D/C Inst Follow Up/Plan Appointment with Dr. Graham's office in 4 weeks CARDIAC CATH DISCHARGE INSTRUCTIONS *Hold Metformin for 48 hours post heart cath. ACTIVITY * Go Home directly and rest. * Limit activity of the leg (or wrist if it was used) for 7 days including aerobics, swimming, jogging, bicycling, etc. * Restrict stair-climbing for 7 days if possible, if not, climb up with your non -cath leg, then bring together on the same step. * Avoid lifting, pushing, pulling or excessive movement of the affected extremity for 7 days. * Customary sexual activity may be resumed after 2 days-use caution not to use a position that strains or causes pain to the affected extremity. * No driving for 24 hours. * NO SMOKING. * Avoid straining for bowel movements for 7 days. * Gentle walking on level ground is allowed. * Returning to work will depend on the type of procedure and the results. Your doctor will discuss this with you. CALL YOUR DOCTOR FOR ANY OF THE FOLLOWING: *If bleeding from the puncture site occurs- Apply gentle pressure to site with clean cloth and call your doctor or EMS. * If a knot or lump forms under the skin, increases in size, or causes pain. * If bruising appears to be worsening or moving further down your leg instead of disappearing. * Temperature above 101 F. CARE OF YOUR GROIN INCISION; * Bruising or purple discoloration of the skin near the puncture site is common. * You may shower only, no bathtub bathing for 5 days. Be careful to avoid slipping as your leg may feel stiff. * If a closure device was used on your femoral artery, please see the attached guide regarding care of the device and your leg. * REMOVE the dressing from your groin the next day after your procedure in the shower. CARE OF YOUR WRIST INCISION; * Bruising or purple discoloration of the skin near the puncture site is common. * You may shower. * DO NOT submerge wrist. * Remove dressing in 24 hours. ADONIS GRAHAM MD Oct 30, 2017 09:45
== END 2017-10-30 14:05 | disposition home or self-care (01) ==
LOC: CATH 07:09 → SURG 10:15 → CATH 14:05
PROVIDERS: ATTEND Internal Medicine Cardiovascular Disease
DX: R07.89 Other chest pain (principal); I25.10 Atherosclerotic heart disease of native coronary artery without angina pectoris; I10 Essential (primary) hypertension; E78.5 Hyperlipidemia, unspecified; I65.23 Occlusion and stenosis of bilateral carotid arteries; J44.9 Chronic obstructive pulmonary disease, unspecified; F17.210 Nicotine dependence, cigarettes, uncomplicated; Z79.82 Long term (current) use of aspirin
CPT/HCPCS: 36221; 36415; 36430; 71045; 80053; 80061; 85027; 85610; 85730; 87081; 93458

== ENCOUNTER → 2018-03-05 | Outpatient (CLI) | payer MEDICARE, BC ==
[~2018-03-05] MED LIST changes: +LOSA50TA7 PO; +METH10TA2 PO; +OMEP20CA12 PO
--- NOTE | 2018-03-06 12:02 | Diagnostic Imaging Report ---
INDICATION: Lower respiratory infection PA and lateral chest Heart size and pulmonary vascularity are normal. Lungs are clear. There are no effusions or pneumothoraces. IMPRESSION: Negative chest. Dictated by: Dictated on workstation # [id number]
== END ==
LOC: RAD 14:26
PROVIDERS: ATTEND Nurse Practitioner Family
DX: J22 Unspecified acute lower respiratory infection (principal)
CPT/HCPCS: 71046

== ENCOUNTER → 2018-08-29 | Outpatient (CLI) | payer MEDICARE, BC ==
[~2018-08-29] MED LIST changes: +LOSA50TA63 PO; -LOSA50TA7 PO
--- NOTE | 2018-08-29 09:58 | Diagnostic Imaging Report ---
CLINICAL INDICATION: Patient with pain between shoulder blades, left shoulder pain and bilateral leg pain. EXAM: MRI of the thoracic spine performed without IV contrast. Sequences include sagittal T1, sagittal T2, sagittal T2 fat-sat, and axial T2. COMPARISON: MRI of the thoracic spine without contrast dated 05/24/2011. FINDINGS: Thoracic spine has normal alignment with no fracture or dislocation. There is no abnormal paraspinal soft tissue signal or abnormality. The thoracic spinal cord has normal anatomic appearance with no abnormal cord signal. There are small amount of Modic type I degenerative signal changes involving the T3 and T4 vertebrae which was also noted on the prior study. Otherwise, the thoracic vertebrae have normal signal characteristics. There is interval development of mildly hypertrophic anterior spurs involving the thoracic spine. There is interval development of a small chronic Schmorl's node involving the inferior endplates of the T7 and T8 vertebrae. There is no significant disc bulge seen. There is no significant central spinal canal or neural foramen narrowing. The intervertebral disk heights are well-preserved. There is no significant central spinal canal or neural foramen narrowing. IMPRESSION: Interval development of minimal lumbar spine degenerative changes. Otherwise, unremarkable MRI of the thoracic spine. Dictated by: Dictated on workstation # [id number]
--- NOTE | 2018-08-29 10:33 | Diagnostic Imaging Report ---
CLINICAL INDICATION: Patient with back pain and bilateral leg pain. Patient has a history of lumbar spine surgery 10 years ago. EXAM: MRI of the lumbar spine performed without IV contrast. Sagittal T2, sagittal T1, sagittal T2 fat-sat, axial T1, and axial T2. COMPARISON: MRI of the lumbar spine without contrast dated 05/24/2011. FINDINGS: There is interval development of a 5 mm cyst involving the posterior midportion of the right kidney. Again seen interlaminar fusion device at the L4-L5 level posteriorly and intervertebral graft. It is difficult to determine if there is intervertebral bony bridging/fusion at this level. There is no adjacent paraspinal fluid collection. The visualized portions of the distal thoracic spinal cord, conus medullaris, and cauda equina nerve roots are unremarkable. The conus medullaris tip is seen at the upper L2 vertebral body level. L1-L2: Unremarkable. L2-L3: There is interval progression of diffuse disc bulge with moderate loss of intervertebral disc height. There is no significant central canal narrowing. Again seen minimal bilateral neuroforaminal narrowing which has not significantly changed. L3-L4: Unremarkable. L4-L5: Again seen intervertebral fusion changes. There is no significant central spinal canal or neural foramen narrowing. L5-S1: Stable mild bilateral facet arthropathy. Stable small broad posterior disc bulge. There is interval development of an annular tear involving the midline aspect of the disc bulge. There is stable minimal bilateral neuroforaminal narrowing. There is no significant central canal narrowing. IMPRESSION: 1: Again seen L4-L5 intervertebral lumbar fusion with interlaminar fusion device posteriorly. It is difficult to determine if there is intervertebral bony bridging/fusion at this level. CT scan would better evaluate if there is clinical concern. 2: There is interval progression of L2-L3 diffuse disc bulge. There is no significant central spinal canal or neural foramen narrowing. 3: There is interval development of an L5-S1 small annular tear involving the stable sized posterior disc bulge. Dictated by: Dictated on workstation # [id number]
== END ==
LOC: RAD 08:50
PROVIDERS: ATTEND Nurse Practitioner Family
DX: M51.26 Other intervertebral disc displacement, lumbar region (principal); M51.37 Other intervertebral disc degeneration, lumbosacral region; M54.6 Pain in thoracic spine; Z98.1 Arthrodesis status
CPT/HCPCS: 72146; 72148

== ENCOUNTER → 2018-09-16 | Outpatient (CLI) | payer MEDICARE, BC ==
[2018-09-16 12:24] LABS: BUN/CREATININE RATIO 16; GFR ESTIMATED > 60
--- NOTE | 2018-09-16 13:51 | Diagnostic Imaging Report ---
PROCEDURE: CT abdomen and pelvis with and without contrast. TECHNIQUE: Precontrast acquisitions were acquired through the abdomen and pelvis. Multiple contiguous axial images were obtained through the abdomen and pelvis after the administration of intravenous contrast. Auto Exposure Controls were utilized during the CT exam to meet ALARA standards for radiation dose reduction. INDICATION: Back and abdominal pain as well as bloating and diarrhea. COMPARISON: Correlation is made with prior CT from 04/12/2015. FINDINGS: Imaging through the lung bases demonstrates linear regions of scarring or subsegmental atelectasis of both lower lobes. Low densities in the liver appear to be stable when compared with prior study and most suggestive of cysts. The gallbladder is surgically absent. No biliary ductal dilatation is seen. Pancreas and spleen are unremarkable. No adrenal mass is detected. Kidneys are unremarkable. Aorta is nonaneurysmal. Bowel loops are normal in caliber. There is moderate stool throughout the colon, suggestive of constipation. There is no ascites. There are postsurgical changes involving bowel loops in the right abdomen and pelvis. The bladder is unremarkable. No abdominal or pelvic lymphadenopathy is seen. Postsurgical changes in the lower lumbar spine are noted. No acute bony abnormality is detected. IMPRESSION: Essentially unremarkable CT of the abdomen and pelvis apart from constipation and probable hepatic cysts. No acute feature is detected. Dictated by: Dictated on workstation # [id number]
== END ==
LOC: RAD 11:36
PROVIDERS: ATTEND Nurse Practitioner Family
DX: K59.00 Constipation, unspecified (principal); R10.9 Unspecified abdominal pain; R63.4 Abnormal weight loss; R19.7 Diarrhea, unspecified; Z90.49 Acquired absence of other specified parts of digestive tract
CPT/HCPCS: 36415; 74178; 82565; 84520

== ENCOUNTER → 2019-04-06 | Outpatient (CLI) | payer MEDICARE, BC ==
[~2019-04-06] MED LIST changes: -DIAZ5TAB3 PO; +OMEP-280 PO; -OMEP20CA12 PO; +RT-ALBUTEROL SULF 2.5 MG/3 ML PRE-MIX VIAL INH ONE
== END ==
LOC: RT 09:04
PROVIDERS: ATTEND Nurse Practitioner Family
DX: J43.9 Emphysema, unspecified (principal)
CPT/HCPCS: 94060; 94640; 94726; 94729

== ENCOUNTER → 2019-04-30 | Outpatient (CLI) | payer MEDICARE, BC ==
[~2019-04-30] MED LIST changes: -RT-ALBUTEROL SULF 2.5 MG/3 ML PRE-MIX VIAL INH ONE
== END ==
LOC: CARD 10:09
PROVIDERS: ATTEND Internal Medicine Cardiovascular Disease
DX: E78.5 Hyperlipidemia, unspecified (principal); I10 Essential (primary) hypertension; J44.9 Chronic obstructive pulmonary disease, unspecified; R07.9 Chest pain, unspecified; Z72.0 Tobacco use; I34.0 Nonrheumatic mitral (valve) insufficiency
CPT/HCPCS: 93306

== ENCOUNTER → 2019-06-09 | Outpatient (CLI) | payer MEDICARE, BC ==
[~2019-06-09] MED LIST changes: +ACHYD1T PO; -HYDR-3820 PO; -OMEP-280 PO; +OMEP20CA18 PO
--- NOTE | 2019-06-09 10:21 | Diagnostic Imaging Report ---
PROCEDURE: MR imaging of the brain without contrast. TECHNIQUE: Multiplanar, multisequence MR imaging of the brain was performed without contrast. INDICATION: Headaches There are no prior MRI examinations available for comparison. The CT head exam performed on 04/12/2015 failed to show any evidence for an acute abnormality. On this study there is no mass, shift of the midline or hemorrhage to indicate an acute intracranial abnormality. There is no abnormal signal arising from the brain on the diffusion series to indicate an area of acute ischemia either. The ventricles are not abnormally dilated and stable in size when compared to the prior CT head exam. The FLAIR series does show a few small areas of increased signal in the periventricular white matter bilaterally. These findings are nonspecific but may be related to encephalomalacia from microvascular ischemia. There is also mild cortical atrophy. The degree of atrophy is consistent with the patient's age. The sella is not enlarged and the expected carotid flow voids are evident bilaterally. The 7th and 8th nerve complexes are unremarkable. The orbits are symmetrical and within normal limits. The sinuses are generally clear. IMPRESSION: 1. There is no evidence for an acute intracranial abnormality. In particular there is no sign of an area of acute ischemia. 2. There are mild senescent changes including cortical atrophy and periventricular encephalomalacia. Dictated by: Dictated on workstation # [id number]
== END ==
LOC: RAD 09:14
PROVIDERS: ATTEND Nurse Practitioner Family
DX: G31.9 Degenerative disease of nervous system, unspecified (principal); G93.89 Other specified disorders of brain
CPT/HCPCS: 70551

== ENCOUNTER → 2019-10-06 | Outpatient (CLI) | payer MEDICARE, BC | LOC: LABNPT 06:36 | PROVIDERS: ATTEND Otolaryngology Otolaryngology/Facial Plastic Surgery | DX: G47.33 Obstructive sleep apnea (adult) (pediatric) (principal) ==

== ENCOUNTER 2020-01-04 05:33 | Outpatient (RCR) | payer MEDICARE, BC ==
[~2020-01-04] VITALS: Ht 165.1 cm; Wt 58.7 kg
[~2020-01-04 05:33] MED LIST changes: +GABA300C PO; +LOSA100T57 PO; +METO50TA7 PO; -PANT40TA3 PO; +PANT40TA52 PO
== END 2020-01-04 14:46 | disposition home or self-care (01) ==
LOC: PREOP 05:33
PROVIDERS: ATTEND Surgery
DX: Z01.812 Encounter for preprocedural laboratory examination (principal); Z20.828 Contact with and (suspected) exposure to other viral communicable diseases
CPT/HCPCS: 87635

== ENCOUNTER 2020-01-06 10:02 | Day surgery (SDC) | payer MEDICARE, BC ==
[2020-01-06] VITALS (15 sets, daily range): BP systolic 113–183; BP diastolic 56–92
[~2020-01-06] VITALS: Ht 165.1 cm; Wt 58.7 kg
[2020-01-06] MEDS ORDERED: NS IV 500 ML 500 ML IV PRN (10:06)
[2020-01-06] MEDS ORDERED: NS IV 500 ML 500 ML ONE (10:15)
[2020-01-06] MEDS ORDERED: MIDAZOLAM 5 MG/5 ML (VERSED) VIAL IV ONE (10:15)
[2020-01-06] MEDS ORDERED: LIDOCAINE JELLY 2% 6 ML SYRINGE MM PRN (10:15)
[2020-01-06] MEDS ORDERED: fentaNYL INJECTION 100 MCG/2 ML AMP IVP ONE (10:15)
[2020-01-06] MEDS ORDERED: LIDOCAINE JELLY 2% 6 ML SYRINGE ONE (10:32)
[2020-01-06] MEDS ORDERED: fentaNYL INJECTION 100 MCG/2 ML AMP ONE (10:33)
[2020-01-06] MEDS ORDERED: MIDAZOLAM 5 MG/5 ML (VERSED) VIAL ONE ×2 (10:33→11:21)
--- NOTE | 2020-01-06 10:36 | Conscious Sedation/ASA ---
Conscious Sedation Pre-Proced Time 10:00 ASA Score 2 For ASA 3 and 4: Consider anesthesia and medical clearance. Also, for patients with a history of failed moderate sedation consider anesthesia. Airway Lungs Heart ASA score ASA 1: a normal healthy patient ASA 2: a patient with a mild systemic disease (mid diabetes, controlled hypertension, obesity ASA 3: a patient with a severe systemic disease that limits activity (angina, COPD, prior Myocardial infarction) ASA 4: a patient with an incapacitating disease that is a constant threat to life (CHF, renal failure) ASA 5: a moribund patient not expected to survive 24 hrs. (ruptured aneurysm) ASA 6: a declared brain- patient whose organs are being harvested. For emergent operations, add the letter E after the classification Mallampati Classification Grade 1 Sedation Plan Analgesia, Amnesia, Plan communicated to team members, Discussed options with patient/fam, Discussed risks with patient/fam The patient is an appropriate candidate to undergo the planned procedure, sedation, and anesthesia. The patient immediately re-assessed prior to indication. TICO GONSALES MD Jan 06, 2020 10:36
--- NOTE | 2020-01-06 10:36 | Progress Note-Pre Operative ---
Pre-Operative Progress Note H&P Reviewed The H&P was reviewed, patient examined and no changes noted. Date Seen by Provider: Jan 06, 2020 Time Seen by Provider: 10:00 Date H&P Reviewed: Jan 06, 2020 Time H&P Reviewed: 10:00 Pre-Operative Diagnosis: lower abd pain, hx polyps TICO GONSALES MD Jan 06, 2020 10:36
--- NOTE | 2020-01-06 10:38 | Discharge Inst-Surgical ---
D/C Lap Instructions-DRU Follow Up Activity as tolerated High Fiber Diet 25g or more per day Avoid Alcohol, Caffeine, Spicy [place] and Acid foods. Drink 64 fluid oz or more of fluids per day. Symptoms to Report: Fever over 101 degree F, Nausea/Vomiting If any problems/questions: Contact your physician or go to Emergency Room TICO GONSALES MD Jan 06, 2020 10:38
[2020-01-06] MEDS ORDERED: HYDROcodone/APAP 5 MG/325 MG (LORTAB) TAB PO PRN (10:45)
[2020-01-06] MEDS ORDERED: morphine INJ 10 MG/ML 1ML (SYR OR VIAL) IVP PRN ×2 (10:45)
[2020-01-06] MEDS ORDERED: ACETAMINOPHEN 325 MG TABLET PO PRN (10:45)
[2020-01-06] MEDS ORDERED: ONDANSETRON 4 MG/2 ML (SDV) Z0FRAN IVP PRN (10:45)
--- NOTE | 2020-01-06 11:59 | Progress Note-Post Operative ---
Post-Operative Progess Note Surgeon (s)/Information Systems Security Officer (s) Surgeon TICO GONSALES MD Information Systems Security Officer: none Pre-Operative Diagnosis lower abd pain, hx polyps Post-Operative Diagnosis mild chronic stage 2 ext and int hemorrhoids, HP polyp splenic flexure, mild inflammation ileocolonic anastamosis. Procedure & Operative Findings Date of Procedure 01/06/20 Procedure Performed/Findings colonoscopy with bx and removal polyp with hot forceps Anesthesia Type cs Estimated Blood Loss Estimated blood loss (mL): minimal Specimens/Packing Specimens Removed HP splenic flexure, ileocolonic anastamosis. TICO GONSALES MD Jan 06, 2020 11:59
--- NOTE | 2020-01-06 17:31 | OPERATIVE REPORT ---
DATE OF SERVICE: 01/06/2020 ATTENDING PRIMARY CARE PHYSICIAN: Dr. Maryellen Felipe. PREOPERATIVE DIAGNOSES: Crampy lower abdominal pain and bloating and change in bowel habits. POSTOPERATIVE DIAGNOSES: Chronic stage II external and internal hemorrhoids, small hyperplastic polyp of the splenic flexure and mild inflammation of the ileocolonic anastomosis. PROCEDURES PERFORMED: Colonoscopy with polypectomy and biopsy. SURGEON: Dr. Tico Gonsales. ANESTHESIA: Conscious sedation. ESTIMATED BLOOD LOSS: Minimal. FINDINGS: Same as postoperative diagnoses. DISPOSITION: The patient tolerated the procedure well. INDICATIONS FOR PROCEDURE: The patient is a 74-year-old female known to us. She underwent an ileocecal resection for what sounds to be an unresectable polyp and then she had a followup colonoscopies and she was found to have hyperplastic polyps as well as tubular adenomas. We had seen her in 09/2015 and proceeded with a colonoscopy and was found to have a low level of proctitis. She was seen again in 01/2017 and again underwent a colonoscopy; however, there was no mucosal inflammation identified. She reports for the last 6 months, she has had crampy lower abdominal pain as well as bloating as well as a change in bowel habits including diarrhea. The patient was brought to the endoscopy suite in the left lateral decubitus position. After adequate IV pain and sedative medications and conscious sedation anesthesia, digital rectal examination was performed. Mild chronic stage II external and internal hemorrhoids were identified, which were not actively edematous nor inflamed and no bleeding. Normal sphincter tone was felt and there were no palpable masses. The endoscope was then intubated and the anus, rectum and gently insufflated. The endoscope was then advanced through the valve of Lew of the rectum with no polyps or neoplasms identified as well as no mucosal inflammatory changes identified. Through the sigmoid colon, there were no diverticulosis identified. At the splenic flexure, a small hyperplastic polyp 1 to 2 mm in size was identified. This was biopsied and destroyed using forceps and electrocautery. The endoscope was then advanced through the remainder of the transverse and ascending colon to the ileocecal anastomosis, where there was a mild level of inflammation. Biopsy was taken of this region with forceps with visualization of good hemostasis. The endoscope was then slowly withdrawn while taking a second look and suctioned residual air with no distinct findings. The patient tolerated the procedure well. We feel that she may have a low level underlying inflammatory bowel disease, which makes her prone to developing polyps. We will await the biopsy results. However, if she continues to have issues with crampy abdominal pain and diarrhea, we will start her on empiric first line therapy for inflammatory bowel disease to see if that helps. Job ID: [id number] DocumentID: [id number] Dictated Date: 01/06/2020 11:52:19 Employment Representative Date: 01/06/2020 17:30:10 Dictated By: TICO GONSALES MD
== END 2020-01-06 12:35 | disposition home or self-care (01) ==
LOC: ENDO 10:02
PROVIDERS: ATTEND Surgery
DX: D12.3 Benign neoplasm of transverse colon (principal); K63.89 Other specified diseases of intestine; K64.1 Second degree hemorrhoids; K21.9 Gastro-esophageal reflux disease without esophagitis; R15.9 Full incontinence of feces; J44.9 Chronic obstructive pulmonary disease, unspecified; E78.5 Hyperlipidemia, unspecified; K58.9 Irritable bowel syndrome, unspecified; Z87.19 Personal history of other diseases of the digestive system; Z86.010 Personal history of colon polyps; Z98.1 Arthrodesis status; Z79.899 Other long term (current) drug therapy; Z79.890 Hormone replacement therapy; Z79.82 Long term (current) use of aspirin
CPT/HCPCS: 88305

== ENCOUNTER → 2020-08-23 | Outpatient (CLI) | payer MEDICARE, BC ==
--- NOTE | 2020-08-23 15:03 | Diagnostic Imaging Report ---
INDICATION: Cough. PA and lateral chest obtained at 01:27 p.m. and compared 03/05/2018. FINDINGS: Heart and mediastinal silhouette are normal in appearance. The lungs are clear. There is no pneumothorax or pleural fluid. IMPRESSION: Negative chest. Dictated by: Dictated on workstation # [id number]
== END ==
LOC: RAD 13:03
PROVIDERS: ATTEND Nurse Practitioner Family
DX: R05 Cough (principal)
CPT/HCPCS: 71046

== ENCOUNTER 2022-05-28 11:44 | Emergency (ER) | payer MEDICARE, BC ==
[~2022-05-28] VITALS: Ht 165.1 cm; Wt 49.4 kg
[~2022-05-28 11:44] MED LIST changes: +ALBU8.5H6 IH; -CITA10TA7 PO; +CITA10TA9 PO; +METH-742 PO; -METH10TA2 PO; +OMEP20TA56 PO; -OMEP20TA7 PO; -RT-ALBUINH IH
--- NOTE | 2022-05-28 12:08 | ED Respiratory ---
General Chief Complaint: Respiratory Problems Stated Complaint: SOB Nursing Triage Note: PT TO ED IN WC WITH C/O COUGH, CONGESTION, SOB, PAZ, AND DIARRHEA X 3 DAYS. PT REPORT PRESSURE IN HER CHEST AND FEELS LIKE SHE CAN ONLY TAKE SHALLOW BREATHS. UNABLE TO LAY FLAT. REPORTS AT HOME BREATHING TX HAVE NOT PROVIDED ANY RELIEF. Source: patient Exam Limitations: no limitations History of Present Illness Date Seen by Provider: May 28, 2022 Time Seen by Provider: 12:00 Initial Comments Patient is a 77-year-old female who presents to the emergency department with a chief complaint of cough, congestion feeling short of breath and terrible headache. Patient also states that she has had diarrhea for 3 days. She states the shortness of breath has been bad for 2. Timing/Duration: other (2s) Severity: moderate Prior Episodes/Possible Cause: occasional episodes Modifying Factors: Improves With Albuterol Inhaler Associated Symptoms: chest pain/soreness (with deep breath), cough, headache, shortness of breath Allergies and Home Medications Allergies Coded Allergies: aspartame (Verified Allergy, Unknown, HIVES, 02/07/17) Patient Home Medication List Albuterol Sulfate (Ventolin Hfa) 1 Puff Puff, 2 PUFF IH Q4H PRN for SHORTNESS OF BREATH, (Reported) Entered as Reported by: ALON GELLER on 02/07/17 1126 Aspirin (Aspirin) 81 Mg Tab.chew, 81 MG PO DAILY, (Reported) Entered as Reported by: ALON GELLER on 02/07/17 1126 Citalopram Hydrobromide (Citalopram HBr) 10 Mg Tablet, 10 MG PO DAILY, (Reported) Entered as Reported by: RHONDA CAMP on 12/31/19 1333 Estradiol (Estradiol Tablet) 1 Mg Tablet, 1 MG PO DAILY, (Reported) Entered as Reported by: RHONDA CAMP on 07/13/15 1614 Fenofibrate Nanocrystallized (Tricor) 145 Mg Tablet, 145 MG PO DAILY, (Reported) Entered as Reported by: ALON GELLER on 02/07/17 1126 Gabapentin (Neurontin) 300 Mg Capsule, 300 MG PO TID, (Reported) Entered as Reported by: RHONDA CAMP on 12/31/19 1333 Hyoscyamine Sulfate (Hyoscyamine Sulfate) 0.125 Mg Tablet, 0.125 MG PO DAILY PRN for STOMACH UPSET, (Reported) Entered as Reported by: RHONDA CAMP on 07/13/15 1633 Losartan Potassium (Losartan Potassium) 100 Mg Tablet, 100 MG PO DAILY, (Reported) Entered as Reported by: RHONDA CAMP on 12/31/19 1333 Metoprolol Succinate (Metoprolol Succinate) 50 Mg Tab.er.24h, 50 MG PO DAILY, (Reported) Entered as Reported by: RHONDA CAMP on 12/31/19 1333 Pantoprazole Sodium (Pantoprazole Sodium) 40 Mg Tablet.dr, 40 MG PO DAILY, (Reported) Entered as Reported by: RHONDA CAMP on 12/31/19 1333 Past Xcnlzzc-Tfqmoe-Mtcufb Hx Patient Social History Tobacco Use?: Yes Tobacco type used: Cigarettes Smoking Status: Current Everyday Smoker Use of E-Cig and/or Vaping dev: No Substance use?: No Alcohol Use?: No Pt feels they are or have been: No Immunizations Up To Date Tetanus Booster (TDap): More than 5yrs Influenza Vaccine Up-to-Date: Yes; Up-to-Date First/Initial COVID19 Vaccinat: X2 Second COVID19 Vaccination Tonny: X2 Seasonal Allergies Seasonal Allergies: No Past Medical History Surgery/Hospitalization HX: COPD Surgeries: Yes (BACK, SHOULDER, COLON RESECTION, BLADDER STRETCHED, breast reduction) Abdominal, Appendectomy, Bladder Surgery, Bowel Surgery, Gallbladder, Hysterectomy, Orthopedic, Tubal Ligation Respiratory: Yes COPD Cardiac: Yes High Cholesterol, Hypertension Neurological: Yes Headaches /Migraines Reproductive Disorders: No [employer] History: Hysterectomy Sexually Transmitted Disease: No HIV/AIDS: No Genitourinary: No Gastrointestinal: Yes (KNICKED BOWEL DURING BACK SX, REQUIRED RESECTION) Gastroesophageal Reflux, Chronic Constipation, Polyps, Irritable Bowel Musculoskeletal: Yes Degenerate Disk Disease, Arthritis, Chronic Back Pain Endocrine: No HEENT: No Loss of Vision: Bilateral Hearing Impairment: Denies Cancer: No Psychosocial: No Integumentary: No Blood Disorders: No Adverse Reaction/Blood Tranf: No (N/A) Physical Exam Vital Signs - First Documented 05/28/22 11:55 Temp 37.8 Pulse 90 Resp 18 B/P (MAP) 135/67 (89) Pulse Ox 92 O2 Delivery Room Air Capillary Refill : Less Than 3 Seconds Height: 5'5.00" Weight: 113lbs. 0.0oz. 51.219548hy; 18.00 BMI Method:Stated Progress/Results/Core Measures Suspected Sepsis SIRS Temperature: Pulse: 90 Respiratory Rate: 18 Laboratory Tests 05/28/22 12:00: White Blood Count 6.0 Blood Pressure / Mean: Laboratory Tests 05/28/22 12:00: Creatinine 0.76, Platelet Count 215 Results/Orders Lab Results Laboratory Tests Test 05/28/22 12:00 05/28/22 12:11 Range/Units White Blood Count 6.0 4.3-11.0 10^3/uL Red Blood Count 4.16 3.80-5.11 10^6/uL Hemoglobin 13.3 11.5-16.0 g/dL Hematocrit 38 35-52 % Mean Corpuscular Volume 91 80-99 fL Mean Corpuscular Hemoglobin 32 25-34 pg Mean Corpuscular Hemoglobin Concent 35 32-36 g/dL Red Cell Distribution Width 13.6 10.0-14.5 % Platelet Count 215 130-400 10^3/uL Mean Platelet Volume 10.5 9.0-12.2 fL Immature Granulocyte % (Auto) 0 % Neutrophils (%) (Auto) 76 H 42-75 % Lymphocytes (%) (Auto) 13 12-44 % Monocytes (%) (Auto) 10 0-12 % Eosinophils (%) (Auto) 0 0-10 % Basophils (%) (Auto) 1 0-10 % Neutrophils # (Auto) 4.5 1.8-7.8 10^3/uL Lymphocytes # (Auto) 0.8 L 1.0-4.0 10^3/uL Monocytes # (Auto) 0.6 0.0-1.0 10^3/uL Eosinophils # (Auto) 0.0 0.0-0.3 10^3/uL Basophils # (Auto) 0.0 0.0-0.1 10^3/uL Immature Granulocyte # (Auto) 0.0 0.0-0.1 10^3/uL Sodium Level 139 135-145 MMOL/L Potassium Level 3.6 3.6-5.0 MMOL/L Chloride Level 107 98-107 MMOL/L Carbon Dioxide Level 22 21-32 MMOL/L Anion Gap 10 5-14 MMOL/L Blood Urea Nitrogen 11 7-18 MG/DL Creatinine 0.76 0.60-1.30 MG/DL Estimat Glomerular Filtration Rate 80 BUN/Creatinine Ratio 14 Glucose Level 104 70-105 MG/DL Calcium Level 9.0 8.5-10.1 MG/DL Influenza Type A (RT-PCR) Not Detected Not Detecte Influenza Type B (RT-PCR) Not Detected Not Detecte SARS-CoV-2 RNA (RT-PCR) Not Detected Not Detecte My Orders Orders - WOODY PERES MD Ed Iv/Invasive Line Start (05/28/22 12:07) Cbc With Automated Diff (05/28/22 12:07) Basic Metabolic Panel (05/28/22 12:07) Chest 1 View, Ap/Pa Only (05/28/22 12:07) Covid 19 Inhouse Test (05/28/22 12:07) Influenza A And B By Pcr (05/28/22 12:07) Isolation Central Supply Req (05/28/22 12:07) Ekg Tracing (05/28/22 12:07) Ketorolac Injection (Toradol Injection) (05/28/22 13:15) Prednisone Tablet (Deltasone Tablet) (05/28/22 13:15) Albuterol Inhaler (Albuterol) (05/28/22 13:23) Albuterol Inhaler (Albuterol) (05/28/22 13:23) Fentanyl Inj (Sublimaze Injection) (05/28/22 14:30) Medications Given in ED Current Medications Medications Dose Ordered Sig/Manisha Route Start Time Stop Time Status Last Admin Dose Admin Ketorolac Tromethamine 15 mg ONCE ONCE IVP 05/28/22 13:15 05/28/22 13:16 DC 05/28/22 13:28 15 MG Prednisone 50 mg ONCE ONCE PO 05/28/22 13:15 05/28/22 13:16 DC 05/28/22 13:28 50 MG Vital Signs/I&O 05/28/22 05/28/22 11:55 11:55 Temp 37.8 Pulse 90 Resp 18 B/P (MAP) 135/67 (89) Pulse Ox 92 O2 Delivery Room Air Room Air Capillary Refill : Less Than 3 Seconds Progress Note : Time: 14:44 Progress Note Patient seen and examined by me, 77-year-old with 2 to 3 days of congestion, cough productive of yellow sputum shortness of breath. Evaluation today includes physical exam, CBC, chemistry, chest x-ray, EKG, COVID and flu test. Patient is not normally on oxygen. Physical exam pertinent for diminished breath sounds right greater than left, no increased work of breathing or respiratory distress. No lower extremity edema. No chest pain. No abdominal pain or tenderness. HEENT exam within normal limits. Differential diagnosis, COVID, influenza, COPD exacerbation with acute bronch itis, pneumonia, viral syndrome. Labs reviewed, CBC is normal, chemistry is normal COVID and flu are negative, chest x-ray shows no focal infiltrates or effusions. Patient is treated in the emergency department with normal saline, Toradol for her headache. Was also given 4 puffs of an albuterol MDI. Maintaining sats at 95 to 96% with no increased work of breathing or respiratory distress. With ongoing symptoms and structural lung disease/COPD will treat for pneumonia especially because she has green and yellow sputum. Patient will go home on azithromycin and cefdinir. 1444 Notified by nurse that patient still had a fairly significant headache. 25 of fentanyl ordered IV. Patient had removed her own IV and was standing up getting ready to leave. She was asking for a fentanyl patch. She states her headache is still present. Again no neurologic deficits noted. Breathing better. Patient wants to be discharged home. No clinical or objective findings to warrant further evaluation from the emergency department. Home on antibiotics, return precautions provided ECG Initial ECG Impression Date: May 28, 2022 Initial ECG Impression Time: 12:00 Initial ECG Rate: 82 Initial ECG Rhythm: Normal Sinus Initial ECG Intervals NV interval 129 QRS 63 QTc 536 Initial ECG Impression: Nonspecific Changes (Nonspecific ST-T wave changes over the V4, V5 and V6 leads as well as inferiorly) Diagnostic Imaging Diagonstic Imaging: Xray Plain Films/CT/US/NM/MRI: chest Comments [facility]. [place], [place] NAME: MIGUEL HALL [facility] REC#: [id number] PT STATUS: REG ER : 1945 PHYSICIAN: WOODY PERES MD ADMIT DATE: 05/28/22/ER Draft Date of Exam:05/28/22 CHEST 1 VIEW, AP/PA ONLY INDICATION: Cough and congestion. TECHNIQUE/COMPARISON: A frontal chest was obtained at 12:20 PM and compared to 08/23/2020. FINDINGS: The heart is top limits of normal in size. There is no focal infiltrate, pneumothorax, or pleural fluid. IMPRESSION: No acute process in the chest. Dictated on workstation # [id number] Dict: 05/28/22 1220 Trans: 05/28/22 1223 [id number] Interpreted by: TYLER POTTS MD Electronically signed by: Departure Impression Primary Impression: COPD with acute bronchitis Additional Impression: Headache Qualified Codes: R51.9 - Headache, unspecified Disposition: 01 HOME, SELF-CARE Condition: Improved Departure-Patient Inst. Decision time for Depature: 14:47 Referrals: BETTIE FELIPE MD (PCP/Family) Primary Care Physician Patient Instructions: Acute Bronchitis, Adult (DC), COPD Exacerbation, Adult ED Add. Discharge Instructions: prednisone 50mg once daily for the next 5 days. Cefdinir 200mg twice a day for 7 days. Take an over the counter probiotic while taking antibiotics. Use over the counter Ibuprofen 3 pills which is 600mg every 6 hours for headache. If you have worsening headache, especially with worsening shortness of breath, cough, or high fever, please come back to the Emergency Department for re- evaluation. Please call Dr Felipe's office for a follow up appointment. Scripts Prednisone (Prednisone) 50 Mg Tab 50 MG PO DAILY for 5 Days, #5 TAB Prov: WOODY PERES MD 05/28/22 Cefdinir (Cefdinir) 300 Mg Capsule 300 MG PO BID, #14 CAP 0 Refills Prov: WOODY PERES MD 05/28/22 Copy Copies To 1: BETTIE FELIPE MD, KATHRYN M MD May 28, 2022 12:08
[2022-05-28 12:18] LABS: BASOPHILS % (AUTO) 1 % (0-10); EOSINOPHILS % (AUTO) 0 % (0-10); HEMATOCRIT 38 % (35-52); HEMOGLOBIN 13.3 g/dL (11.5-16.0); LYMPHOCYTES # (AUTO) 0.8 10^3/uL (1.0-4.0); LYMPHOCYTES % (AUTO) 13 % (12-44); MEAN CORPUSCULAR HEMOGLOBIN 32 pg (25-34); MEAN CORPUSCULAR HGB CONC 35 g/dL (32-36); MEAN CORPUSCULAR VOLUME 91 fL (80-99); MEAN PLATELET VOLUME 10.5 fL (9.0-12.2); MONOCYTES # (AUTO) 0.6 10^3/uL (0.0-1.0); MONOCYTES % (AUTO) 10 % (0-12); NEUTROPHILS # (AUTO) 4.5 10^3/uL (1.8-7.8); NEUTROPHILS % (AUTO) 76 % (42-75); PLATELET COUNT 215 10^3/uL (130-400)
[2022-05-28 12:24] LABS: POTASSIUM 3.6 MMOL/L (3.6-5.0)
--- NOTE | 2022-05-28 12:24 | Diagnostic Imaging Report ---
INDICATION: Cough and congestion. TECHNIQUE/COMPARISON: A frontal chest was obtained at 12:20 PM and compared to 08/23/2020. FINDINGS: The heart is top limits of normal in size. There is no focal infiltrate, pneumothorax, or pleural fluid. IMPRESSION: No acute process in the chest. Dictated by: Dictated on workstation # [id number]
[2022-05-28 12:29] LABS: CREATININE SERUM 0.76 MG/DL (0.60-1.30)
[2022-05-28] MEDS ORDERED: KETOROLAC 15 MG/ML VIAL IVP ONE (13:15)
[2022-05-28] MEDS ORDERED: predniSONE 20 MG TAB PO ONE (13:15)
[2022-05-28] MEDS ORDERED: RT-ALBUTEROL HFA 8.5 GM INHALER IH STA (13:23)
[2022-05-28] MEDS ORDERED: RT-ALBUTEROL HFA 8.5 GM INHALER IH ONE (13:23)
[2022-05-28] MEDS ORDERED: fentaNYL INJ 100 MCG/2 ML AMP IVP ONE (14:30)
[2022-05-28] MEDS ORDERED: fentaNYL INJ 100 MCG/2 ML AMP IM STA (14:43)
[2022-05-28] MEDS ORDERED: CEFD300C3 PO (14:50)
[2022-05-28] MEDS ORDERED: PRD50T PO (14:50)
[2022-05-28 15:05] VITALS: BP 129/82
== END 2022-05-28 15:05 | disposition home or self-care (01) ==
LOC: EDUNIT# 11:44 → ER 11:46
DX: J20.9 Acute bronchitis, unspecified (principal); J44.0 Chronic obstructive pulmonary disease with (acute) lower respiratory infection; R51.9 Headache, unspecified; F17.210 Nicotine dependence, cigarettes, uncomplicated; Z20.822 Contact with and (suspected) exposure to COVID-19
CPT/HCPCS: 36415; 71045; 80048; 85025; 87636; 93005

== ENCOUNTER 2022-06-20 10:17 | Emergency (ER) | payer MEDICARE, BC ==
[~2022-06-20] VITALS: Ht 165 cm; Wt 50.0 kg
[~2022-06-20 10:17] MED LIST changes: +CEFD300C3 PO; +PRD50T PO
--- NOTE | 2022-06-20 10:38 | ED Respiratory ---
General Chief Complaint: Respiratory Problems Stated Complaint: CHEST CONGESTION | COUGH Nursing Triage Note: PT AMB TO RM 7 PT CO OF SOA AND CONGESTION. PT STATES CHEST HURTS FROM COUGH, STATES COUGHING UP GREEN STUFF. CONT TO SMOKE DAILY. STATES USES NEBULIZER DAILY. DENIES FEVERS. PT TEARFUL D/T BEING SICK Source: patient Exam Limitations: no limitations History of Present Illness Date Seen by Provider: Jun 20, 2022 Time Seen by Provider: 10:26 Initial Comments Patient is a 77-year-old female history of hypertension, smoking who presents to the emergency department with a chief complaint of coarse wet cough, green sputum, shortness of breath worse with exertion and laying flat. Patient has had symptoms for about a month. She is currently in the middle of a steroid taper. I saw her a month ago and started her on some cefdinir. Patient states that she has not gotten any better. Her exercise tolerance is nail. She denies fevers or chills. She has had multiple COVID tests over the course of the last month. She self tested this morning and was negative. She uses her nebulizer 3 times a day. She does continue to smoke "lightly". She denies chest pain. No nasal congestion earache or sore throat. No problems with bowel or bladder. She denies swelling in her legs. She states laying flat makes her feel ext remely short of breath but sitting up and leaning forward makes her feel better. She remotely used home oxygen 5 to 8 years ago but does not require it at this time. She uses only albuterol. She did try breztree at one time but it did not help. She had a routine appointment with Dr. Graham about 2 weeks ago. She is needing to be scheduled for stress test but has wanted to get over this congestion before she has it done. She is quite tearful and upset about being sick. Her passed about 6 months ago. She states she is a "loner" and does not do any activities outside the home. Sitting at rest in bed 91-92% with slightly labored breathing. Lungs are clear. Timing/Duration: getting worse, other (3-week) Severity: moderate Prior Episodes/Possible Cause: occasional episodes Modifying Factors: Worse With Activity; Improves With Other (Sitting forward makes her feel better) Associated Symptoms: cough, shortness of breath Allergies and Home Medications Allergies Coded Allergies: aspartame (Verified Allergy, Unknown, HIVES, 02/07/17) Patient Home Medication List Home Medication List Reviewed: Yes Albuterol Sulfate (Ventolin Hfa) 1 Puff Puff, 2 PUFF IH Q4H PRN for SHORTNESS OF BREATH, (Reported) Entered as Reported by: ALON GELLER on 02/07/17 1126 Aspirin (Aspirin) 81 Mg Tab.chew, 81 MG PO DAILY, (Reported) Entered as Reported by: ALON GELLER on 02/07/17 1126 Cefdinir (Cefdinir) 300 Mg Capsule, 300 MG PO BID Prescribed by: WOODY PERES on 05/28/22 1450 Citalopram Hydrobromide (Citalopram HBr) 10 Mg Tablet, 10 MG PO DAILY, (Reported) Entered as Reported by: RHONDA CAMP on 12/31/19 1333 Estradiol (Estradiol Tablet) 1 Mg Tablet, 1 MG PO DAILY, (Reported) Entered as Reported by: RHONDA CAMP on 07/13/15 1614 Fenofibrate Nanocrystallized (Tricor) 145 Mg Tablet, 145 MG PO DAILY, (Reported) Entered as Reported by: ALON GELLER on 02/07/17 1126 Gabapentin (Neurontin) 300 Mg Capsule, 300 MG PO TID, (Reported) Entered as Reported by: RHONDA CAMP on 12/31/19 1333 Hyoscyamine Sulfate (Hyoscyamine Sulfate) 0.125 Mg Tablet, 0.125 MG PO DAILY PRN for STOMACH UPSET, (Reported) Entered as Reported by: RHONDA CAMP on 07/13/15 1633 Losartan Potassium (Losartan Potassium) 100 Mg Tablet, 100 MG PO DAILY, (Reported) Entered as Reported by: RHONDA CAMP on 12/31/19 1333 Metoprolol Succinate (Metoprolol Succinate) 50 Mg Tab.er.24h, 50 MG PO DAILY, (Reported) Entered as Reported by: RHONDA CAMP on 12/31/19 1333 Pantoprazole Sodium (Pantoprazole Sodium) 40 Mg Tablet.dr, 40 MG PO DAILY, (Reported) Entered as Reported by: RHONDA CAMP on 12/31/19 1333 Prednisone (Prednisone) 50 Mg Tab, 50 MG PO DAILY Prescribed by: WOODY PERES on 05/28/22 1450 Review of Systems Review of Systems Constitutional: see HPI EENTM: No hoarseness, No nose congestion Respiratory: cough, dyspnea on exertion, orthopnea, short of breath Cardiovascular: no symptoms reported Gastrointestinal: no symptoms reported Genitourinary: no symptoms reported Musculoskeletal: no symptoms reported Skin: no symptoms reported Psychiatric/Neurological: Other (Anxious and tearful) Past Xzssigh-Skuxja-Xhkuse Hx Patient Social History Tobacco Use?: Yes Tobacco type used: Cigarettes Smoking Status: Current Everyday Smoker Substance use?: No Alcohol Use?: No Pt feels they are or have been: No Immunizations Up To Date Tetanus Booster (TDap): More than 5yrs Influenza Vaccine Up-to-Date: Yes; Up-to-Date First/Initial COVID19 Vaccinat: X2 Second COVID19 Vaccination Tonny: X2 Third COVID19 Vaccination Date: X2 Seasonal Allergies Seasonal Allergies: No Past Medical History Surgery/Hospitalization HX: COPD Surgeries: Yes (BACK, SHOULDER, COLON RESECTION, BLADDER STRETCHED, breast reduction) Abdominal, Appendectomy, Bladder Surgery, Bowel Surgery, Gallbladder, Hysterectomy, Orthopedic, Tubal Ligation Respiratory: Yes COPD Cardiac: Yes High Cholesterol, Hypertension Neurological: Yes Headaches /Migraines Reproductive Disorders: No 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 Sexually Transmitted Disease: No HIV/AIDS: No Genitourinary: No Gastrointestinal: Yes (KNICKED BOWEL DURING BACK SX, REQUIRED RESECTION) Gastroesophageal Reflux, Chronic Constipation, Polyps, Irritable Bowel Musculoskeletal: Yes Degenerate Disk Disease, Arthritis, Chronic Back Pain Endocrine: No HEENT: No Loss of Vision: Bilateral Hearing Impairment: Denies Cancer: No Psychosocial: No Integumentary: No Blood Disorders: No Adverse Reaction/Blood Tranf: No (N/A) Physical Exam Vital Signs - First Documented 06/20/22 06/20/22 10:20 10:50 Temp 36.2 Pulse 110 Resp 18 B/P (MAP) 128/79 (95) Pulse Ox 91 O2 Delivery Room Air O2 Flow Rate 2.00 Capillary Refill : Less Than 3 Seconds Height: 5'5.00" Weight: 113lbs. 0.0oz. 51.949340nm; 18.00 BMI Method:Stated General Appearance: no apparent distress, thin Eyes: Bilateral Eye Normal Inspection, Bilateral Eye PERRL, Bilateral Eye EOMI HEENT: PERRL/EOMI Neck: supple, normal inspection Respiratory: lungs clear, normal breath sounds, no respiratory distress, no accessory muscle use, other (Room air saturations 91 to 92%) Cardiovascular: regular rate, rhythm Extremities: normal range of motion, non-tender, normal inspection, no pedal edema, no calf tenderness, normal capillary refill Neurologic/Psychiatric: alert, oriented x 3, other (Tearful depressed affect) Skin: normal color, warm/dry Progress/Results/Core Measures Suspected Sepsis SIRS Temperature: Pulse: 110 Respiratory Rate: 18 Laboratory Tests 06/20/22 10:37: White Blood Count 12.1H Blood Pressure 128 /79 Mean: 95 Laboratory Tests 06/20/22 10:37: Creatinine 0.84, Platelet Count 286, Total Bilirubin 0.2 Results/Orders Lab Results Laboratory Tests Test 06/20/22 10:37 Range/Units White Blood Count 12.1 H 4.3-11.0 10^3/uL Red Blood Count 4.13 3.80-5.11 10^6/uL Hemoglobin 13.2 11.5-16.0 g/dL Hematocrit 40 35-52 % Mean Corpuscular Volume 96 80-99 fL Mean Corpuscular Hemoglobin 32 25-34 pg Mean Corpuscular Hemoglobin Concent 33 32-36 g/dL Red Cell Distribution Width 14.6 H 10.0-14.5 % Platelet Count 286 130-400 10^3/uL Mean Platelet Volume 9.7 9.0-12.2 fL Immature Granulocyte % (Auto) 0 % Neutrophils (%) (Auto) 77 H 42-75 % Lymphocytes (%) (Auto) 15 12-44 % Monocytes (%) (Auto) 6 0-12 % Eosinophils (%) (Auto) 1 0-10 % Basophils (%) (Auto) 0 0-10 % Neutrophils # (Auto) 9.3 H 1.8-7.8 10^3/uL Lymphocytes # (Auto) 1.8 1.0-4.0 10^3/uL Monocytes # (Auto) 0.8 0.0-1.0 10^3/uL Eosinophils # (Auto) 0.1 0.0-0.3 10^3/uL Basophils # (Auto) 0.0 0.0-0.1 10^3/uL Immature Granulocyte # (Auto) 0.1 0.0-0.1 10^3/uL Sodium Level 141 135-145 MMOL/L Potassium Level 3.5 L 3.6-5.0 MMOL/L Chloride Level 105 98-107 MMOL/L Carbon Dioxide Level 26 21-32 MMOL/L Anion Gap 10 5-14 MMOL/L Blood Urea Nitrogen 21 H 7-18 MG/DL Creatinine 0.84 0.60-1.30 MG/DL Estimat Glomerular Filtration Rate 71 BUN/Creatinine Ratio 25 Glucose Level 91 70-105 MG/DL Calcium Level 9.9 8.5-10.1 MG/DL Corrected Calcium 10.2 H 8.5-10.1 MG/DL Total Bilirubin 0.2 0.1-1.0 MG/DL Aspartate Amino Transf (AST/SGOT) 13 5-34 U/L Alanine Aminotransferase (ALT/SGPT) 15 0-55 U/L Alkaline Phosphatase 51 40-136 U/L C-Reactive Protein High Sensitivity 18.79 H 0.00-0.50 MG/DL B-Type Natriuretic Peptide 134.6 H <100.0 PG/ML Total Protein 6.7 6.4-8.2 GM/DL Albumin 3.6 3.2-4.5 GM/DL My Orders Orders - WOODY PERES MD Ed Iv/Invasive Line Start (06/20/22 10:33) Cbc With Automated Diff (06/20/22 10:33) Comprehensive Metabolic Panel (06/20/22 10:33) Bnp [place] (06/20/22 10:33) Ekg Tracing (06/20/22 10:33) Chest 1 View, Ap/Pa Only (06/20/22 10:33) Hs C Reactive Protein (06/20/22 10:33) Amoxicillin/Clavulanate Tablet (Augmenti (06/20/22 11:19) Doxycycline Hyclate Tablet (Vibramycin T (06/20/22 11:19) Vital Signs/I&O 06/20/22 06/20/22 06/20/22 10:20 10:50 11:24 Temp 36.2 Pulse 110 79 Resp 18 18 B/P (MAP) 128/79 (95) 105/52 Pulse Ox 91 94 97 O2 Delivery Room Air Nasal Cannula O2 Flow Rate 2.00 Capillary Refill : Less Than 3 Seconds Blood Pressure Mean: 95 Progress Note #1: Time: 11:11 Progress Note Notified by the patient's nurse TRISHA Stock that the patient's oxygen saturations dropped down to 88%. This is on room air. Patient was given supplemental oxygen per nasal cannula at 1-2 and feels much better with improvement of her saturations 97% Progress Note #2: Time: 11:27 Progress Note Patient seen and evaluated by me, 77-year-old with shortness of breath and cough. Evaluation today includes physical exam, CBC, CRP, chemistry, BNP, EKG and single view chest x-ray. Physical exam pertinent for elderly frail- appearing female with mild respiratory distress due to shortness of breath. Lungs are clear, she is tachypneic, at rest in the bed oxygen saturations 91 to 92%. Abdomen is soft extremities without edema. Heart is regular. No focal neurologic deficits. She appears ill. Differential diagnosis based on history and physical exam, acute exacerbation of COPD, pneumonia, sepsis, congestive heart failure, acute coronary syndrome Labs reviewed, CBC shows mildly elevated white count a little over 12,000. CRP is elevated at 18. Chemistry is unremarkable. BNP is 134. EKG shows normal sinus rhythm at 79 bpm. Normal intervals, no ST segment elevation or depre ssion. Biphasic P wave in leads V1 and V2. Chest x-ray shows bibasilar pneumonia. Patient is supplemented with oxygen at 2 L per nasal cannula and feels much improvement in her work of breathing. She is also started on Augmentin as well as doxycycline here in the emergency department. No clinical or objective findings to warrant further testing from the emergency department. She does not meet inpatient admission requirements. We will set her up with home oxygen. Antibiotics for 10 days and follow-up with her primary care physician Dr. Felipe. Diagnostic Imaging Diagonstic Imaging: Xray Plain Films/CT/US/NM/MRI: chest Comments NAME: MIGUEL HALL MED REC#: [id number] PT STATUS: REG ER : 1945 PHYSICIAN: WOODY PERES MD ADMIT DATE: 06/20/22/ER Draft Date of Exam:06/20/22 CHEST 1 VIEW, AP/PA ONLY Clinical indications: Patient with shortness of breath and wet cough. EXAM: Portable chest x-ray upright view. COMPARISON: Chest x-ray dated 05/28/2022. FINDINGS: Lungs/pleura: There are scattered areas of increased lung markings both lung bases and right midlung field and left lingular region, which may represent atelectasis or infiltrate which has minimally increased in the interim. There is no lung infiltrate seen. There is no pneumothorax. There is no pleural effusion. Mediastinum: Unremarkable. Pulmonary vasculature: Unremarkable. Heart: Unremarkable. Bones/extrathoracic soft tissue: There are small degenerative spurs involving the thoracic spine. IMPRESSION: There is interval progression of increased lung markings involving both mid and lower lung field regions which may represent atelectasis, but subtle infiltrates cannot be completely excluded. Dictated on workstation # [id number] Dict: 06/20/22 1105 Trans: 06/20/22 1110 [facility] [id number] Interpreted by: SWATHI ROBERTS MD Electronically signed by: Departure Impression Primary Impression: Pneumonia Qualified Codes: J18.9 - Pneumonia, unspecified organism Additional Impressions: COPD (chronic obstructive pulmonary disease) Qualified Codes: J44.9 - Chronic obstructive pulmonary disease, unspecified Hypoxia Disposition: 01 HOME, SELF-CARE Condition: Improved Departure-Patient Inst. Decision time for Depature: 11:32 Referrals: BETTIE FELIPE MD (PCP/Family) Primary Care Physician Patient Instructions: Pneumonia, Adult ED, Chronic Obstructive Pulmonary Disease (COPD) (DC) Add. Discharge Instructions: Take the antibiotics, Augmentin 875 mg twice daily for 10 days. Doxycycline 100 mg twice daily for 10 days. Use your inhaler/nebulizer every 4-6 hours as needed for shortness of breath. Mucinex sohy-sxt-tktqozj will help thin your secretions and make things easier to cough up. You might consider an dbgb-xby-uaksfvy allergy medication such as Daxa or Cla ritin daily as the weather is changing and there may be a component of something in the environment that is triggering your cough. Take 1 tablet daily. Tylenol with codeine 1 to 2 teaspoons every 6 hours as needed for cough. Return to the emergency department for any new, concerning or emergent complaints. [facility]" will be delivering oxygen to your home today. Scripts Acetaminophen with Codeine (Acetaminop-Codeine 120-12 mg/5) 120 Mg-12 Mg/5 Ml (5 Ml) Solution 10 ML PO Q6H PRN for cough, #100 ML Prov: WOODY PERES MD 06/20/22 Doxycycline Hyclate (Doxycycline Hyclate) 100 Mg Tablet 100 MG PO BID for 10 Days, #20 TAB 0 Refills Prov: WOODY PERES MD 06/20/22 Amoxicillin/Potassium Clav (Amox Tr-K Clv 875-125 mg Tab) 875 Mg-125 Mg Tablet 1 EACH PO BID for 10 Days, #20 TAB Prov: WOODY PERES MD 06/20/22 Copy Copies To 1: BETTIE FELIPE MD, KATHRYN M MD Jun 20, 2022 10:38
[2022-06-20 10:45] LABS: BASOPHILS % (AUTO) 0 % (0-10); EOSINOPHILS # (AUTO) 0.1 10^3/uL (0.0-0.3); EOSINOPHILS % (AUTO) 1 % (0-10); HEMATOCRIT 40 % (35-52); HEMOGLOBIN 13.2 g/dL (11.5-16.0); LYMPHOCYTES # (AUTO) 1.8 10^3/uL (1.0-4.0); LYMPHOCYTES % (AUTO) 15 % (12-44); MEAN CORPUSCULAR HEMOGLOBIN 32 pg (25-34); MEAN CORPUSCULAR HGB CONC 33 g/dL (32-36); MEAN CORPUSCULAR VOLUME 96 fL (80-99); MEAN PLATELET VOLUME 9.7 fL (9.0-12.2); MONOCYTES # (AUTO) 0.8 10^3/uL (0.0-1.0); MONOCYTES % (AUTO) 6 % (0-12); NEUTROPHILS # (AUTO) 9.3 10^3/uL (1.8-7.8); NEUTROPHILS % (AUTO) 77 % (42-75); PLATELET COUNT 286 10^3/uL (130-400); WHITE BLOOD COUNT 12.1 10^3/uL (4.3-11.0)
[2022-06-20 10:55] LABS: ALBUMIN 3.6 GM/DL (3.2-4.5); POTASSIUM 3.5 MMOL/L (3.6-5.0)
[2022-06-20 10:56] LABS: CALCIUM 9.9 MG/DL (8.5-10.1)
[2022-06-20 10:58] LABS: TOTAL PROTEIN 6.7 GM/DL (6.4-8.2)
[2022-06-20 10:59] LABS: BILIRUBIN,TOTAL 0.2 MG/DL (0.1-1.0)
[2022-06-20 11:01] LABS: CREATININE SERUM 0.84 MG/DL (0.60-1.30)
--- NOTE | 2022-06-20 11:10 | Diagnostic Imaging Report ---
Clinical indications: Patient with shortness of breath and wet cough. EXAM: Portable chest x-ray upright view. COMPARISON: Chest x-ray dated 05/28/2022. FINDINGS: Lungs/pleura: There are scattered areas of increased lung markings both lung bases and right midlung field and left lingular region, which may represent atelectasis or infiltrate which has minimally increased in the interim. There is no lung infiltrate seen. There is no pneumothorax. There is no pleural effusion. Mediastinum: Unremarkable. Pulmonary vasculature: Unremarkable. Heart: Unremarkable. Bones/extrathoracic soft tissue: There are small degenerative spurs involving the thoracic spine. IMPRESSION: There is interval progression of increased lung markings involving both mid and lower lung field regions which may represent atelectasis, but subtle infiltrates cannot be completely excluded. Dictated by: Dictated on workstation # [id number]
[2022-06-20] MEDS ORDERED: AUGMENTIN 875 MG TAB (AMOXICILLIN/CLAVULANATE) PO STA (11:19)
[2022-06-20] MEDS ORDERED: DOXYCYCLINE 100 MG (VIBRAMYCIN) TABLET PO STA (11:19)
[2022-06-20 11:24] VITALS: BP 105/52
[2022-06-20] MEDS ORDERED: DOXYCYCLINE 100 MG (VIBRAMYCIN) TABLET ONE (11:31)
[2022-06-20] MEDS ORDERED: ACET5ELI PO (11:35)
[2022-06-20] MEDS ORDERED: AMOX1TAB12 PO (11:35)
[2022-06-20] MEDS ORDERED: DOXY100T2 PO (11:35)
== END 2022-06-20 11:46 | disposition home or self-care (01) ==
LOC: EDUNIT# 10:17 → ER 10:19
DX: J18.9 Pneumonia, unspecified organism (principal); J44.9 Chronic obstructive pulmonary disease, unspecified; R09.02 Hypoxemia; F17.210 Nicotine dependence, cigarettes, uncomplicated; Z79.51 Long term (current) use of inhaled steroids
CPT/HCPCS: 36415; 71045; 80053; 83880; 85025; 86141; 93005

== ENCOUNTER → 2022-08-08 | Outpatient (CLI) | payer MEDICARE, BC ==
[~2022-08-08] MED LIST changes: +ACET5ELI PO; +AMOX1TAB12 PO; +DOXY100T2 PO
--- NOTE | 2022-08-08 08:19 | Diagnostic Imaging Report ---
Indication: Cough PA and lateral views of the chest obtained with comparison made study of 08/23/2020 Heart size and pulmonary vascularity are within normal limits. There is no pneumothorax or consolidation. No pleural fluid is seen. Pectus excavatum is noted. IMPRESSION: Stable chronic findings without acute abnormality. Dictated by: Dictated on workstation # [id number]
== END ==
LOC: RAD 07:45
PROVIDERS: ATTEND Nurse Practitioner Family
DX: R05.9 Cough, unspecified (principal)
CPT/HCPCS: 71046

== ENCOUNTER → 2022-08-08 | Outpatient (CLI) | payer MEDICARE, BC ==
[~2022-08-08] MED LIST changes: +CATHETER FLUSH 10 ML SYR IVP PRN; +REGADENOSON 0.4 MG/5 ML SYR (LEXISCAN) IV ONE
[2022-08-08 09:41] VITALS: BP 141/83
[2022-08-08 09:46] VITALS: BP 166/82
--- NOTE | 2022-08-08 13:52 | Cardiology Stress Test Report ---
Stress Test Report Date of Procedure/Referring: Date of Procedure: August 08, 2022 PCP Bettie Felipe MD Admitting Physician Admitting Physician: Attending Physician: Ángel Graham MD Baseline Heart Rate: 60 Baseline Blood Pressure: Blood Pressure Systolic: 166 Blood Pressure Diastolic: 82 Baseline Vitals Vital Signs Date Time Temp Pulse Resp B/P (MAP) Pulse Ox O2 Delivery O2 Flow Rate FiO2 08/08/22 09:41 78 19 141/83 (102) 08/08/22 09:46 Room Air Baseline EKG: Baseline EKG: NSR Summary After explaining the procedure to the patient, she signed a consent and then brought to the stress nuclear laboratory. Patient received 0.4 mg Lexiscan for stress test, ECG, heart rate and blood pressure were monitored continuously. Resting and stress dose of radio tracer were injected, imaging was acquired and reviewed in short axis, horizontal long axis and vertical long axis views. TID: 1.06 SSS: 1 SDS: 1 EF: 79 Patient tolerated Lexiscan well No significant ischemia or infarction noted on SPECT images Normal left ventricular size, ejection fraction 79% Copy Copies To 1: BETTIE FELIPE MD, BASHAR J MD August 08, 2022 13:52
== END ==
LOC: CARD 07:42
PROVIDERS: ATTEND Internal Medicine Cardiovascular Disease
DX: I25.10 Atherosclerotic heart disease of native coronary artery without angina pectoris (principal)
CPT/HCPCS: 78452; 93017; A9502